=== PATIENT | male | born 1980 | race African-American/Black ===

== ENCOUNTER 2016-03-28 15:50 | Inpatient (IN) | payer MEDICAID, OTHER ==
[2016-03-28] MEDS ORDERED: NICOTINE 21MG/24HR PATCH TRANSDERM STA (17:21)
--- NOTE | 2016-03-28 17:43 | ED ---
Psych HPI - General Chief Complaint: Psychiatric Symptoms Stated Complaint: Mental Health Time Seen by Provider: 03/28/16 16:37 Source: patient, RN notes reviewed Mode of arrival: ambulatory Limitations: no limitations - History of Present Illness Initial Comments: 35-year-old male presents emergency Department chief complaint anxiety depression suicidal thoughts. Patient states he has not of time cell. Patient states 3 depressed because he lost his left lower leg. Patient states that he just sits at home and cannot work. Patient states he is on antidepressants with no help. - Related Data Home Medications Medication Instructions Recorded Confirmed Paliperidone IM [Invega Sustenna] 234 mg IM Q28D 01/23/16 03/28/16 Vortioxetine Hydrobromide 20 mg PO HS 01/23/16 03/28/16 [Trintellix] Gabapentin [Neurontin] 100 mg PO TID 03/28/16 03/28/16 Previous Rx's Medication Instructions Recorded Topiramate [Topamax] 50 mg PO BID #6 tab 03/20/15 HYDROcodone/APAP 7.5-325MG [[place] 1 tab PO Q6HR PRN #20 tab 02/11/16 7.5-325] ALPRAZolam [Xanax] 1 mg PO BID PRN #20 tab 02/12/16 Allergies Allergy/AdvReac Type Severity Reaction Status Date / Time No Known Allergies Allergy Verified 03/28/16 18:31 Review of Systems ROS Statement: Those systems with pertinent positive or pertinent negative responses have been documented in the HPI. ROS Other: All systems not noted in ROS Statement are negative. Past Medical History Past Medical History: No Reported History Additional Past Medical History / Comment(s): Pt recently admitted 01/25/16 with sepsis 2ndary to L foot cellulitis and elevated LFT. Other hx: past R elbow fracture. History of Any Multi-Drug Resistant Organisms: MRSA Date of last positivie culture/infection: 03/20/15 MDRO Source:: Left fourth finger Past Surgical History: Hernia Repair Additional Past Surgical History / Comment(s): Inguinal hernia repair as child ( does not recall laterallity). Past Anesthesia/Blood Transfusion Reactions: No Reported Reaction Past Psychological History: Anxiety, Bipolar, Depression Additional Psychological History / Comment(s): Pt states he lives alone. He does not drive. He uses the bus to get places. He states his psychiatric medications are working well. No thoughts or plans of suicide. He has had suicide attempt in past by OD. He sees a pychiatrist and councelor thru [facility]. Smoking Status: Current every day smoker Past Alcohol Use History: Occasional Additional Past Alcohol Use History / Comment(s): Pt states he has hx of alcohol abuse. He states he now drinks alcohol twice a month. He states he last drank about 2 weeks ago. Past Drug Use History: Marijuana Additional Drug Use History / Comment(s): Pt states he smokes marijuana occasionally. - Past Family History Father Family Medical History: Cancer Additional Family Medical History / Comment(s): Father of throat cancer at the age of 68yrs. He was a smoker. Mother Family Medical History: Cancer Additional Family Medical History / Comment(s): Mother had lung cancer. She of this at the age of 50yrs. She was a smoker. General Exam Limitations: no limitations General appearance: alert, in no apparent distress Eye exam: Present: normal appearance, PERRL, EOMI. Absent: scleral icterus, conjunctival injection, periorbital swelling ENT exam: Present: normal exam, mucous membranes moist Neck exam: Present: normal inspection, full ROM. Absent: tenderness, meningismus, lymphadenopathy Respiratory exam: Present: normal lung sounds bilaterally. Absent: respiratory distress, wheezes, rales, rhonchi, stridor Cardiovascular Exam: Present: regular rate, normal rhythm, normal heart sounds. Absent: systolic murmur, diastolic murmur, rubs, gallop, clicks GI/Abdominal exam: Present: soft, normal bowel sounds. Absent: distended, tenderness, guarding, rebound, rigid Extremities exam: Present: other (Left BKA) Psychiatric exam: Present: depressed Course Vital Signs 03/28/16 16:04 Temperature 97.8 F Pulse Rate 104 H Respiratory 20 Rate Blood Pressure 116/59 O2 Sat by Pulse 99 Oximetry Disposition Clinical Impression: Suicidal ideation, Depression Disposition: ADMITTED IP TO THIS HOSP Condition: Stable
[2016-03-28] MEDS ORDERED: LORazepam 1 MG TAB PO STA (18:49)
[2016-03-28] MEDS ORDERED: HYDROcodone/APAP 5-325MG 1 EACH TAB PO PRN (19:21)
[2016-03-28] MEDS ORDERED: MAG HYDROX/AL HYDROX/SIMETH 30 ML CUP PO PRN (19:23)
[2016-03-28] MEDS ORDERED: MAGNESIUM HYDROXIDE 2,400 MG/10 ML CUP PO PRN (19:23)
[2016-03-28] MEDS ORDERED: ACETAMINOPHEN TAB 325 MG TAB PO PRN (19:23)
[2016-03-28] MEDS ORDERED: ZIPRASIDONE 20 MG VIAL IM PRN (19:23)
[2016-03-28 21:14] VITALS: BMI 21.6
[2016-03-28] MEDS: TOPIRAMATE 25 MG TAB PO SCH (21:41)
[2016-03-28] MEDS: GABAPENTIN 100 MG CAP PO SCH (21:41)
[2016-03-28] MEDS: NON-FORMULARY DRUG (Vortioxetine Hydrobromide [Trintellix] 20 MG) PO SCH (22:49)
[2016-03-28] MEDS: LORazepam 1 MG TAB PO PRN (22:50)
[2016-03-29] MEDS: NICOTINE 21MG/24HR PATCH TRANSDERM SCH (08:36)
[2016-03-29] MEDS: TOPIRAMATE 25 MG TAB PO SCH ×2 (08:36→21:55)
[2016-03-29] MEDS: GABAPENTIN 100 MG CAP PO SCH (08:36)
[2016-03-29] MEDS: LORazepam 1 MG TAB PO PRN ×3 (08:37→23:39)
[2016-03-29 08:52] LABS: Basophils # (A) 0.1 k/uL (0-0.2); Basophils % (A) 1 %; CH 31.2; CHCM 32.4; Eosinophils # (A) 0.1 k/uL (0-0.7); Eosinophils % (A) 1 %; HCT 48.6 % (39.0-53.0); HDW 2.28; Luc % (Auto) 1; Lymphocytes # (A) 2.8 k/uL (1.0-4.8); Lymphocytes % (A) 20 %; MCH 30.5 pg (25.0-35.0); MCHC 31.6 g/dL (31.0-37.0); MCV 96.6 fL (80.0-100.0); Mean Platelet Volume 7.8; Monocytes # (A) 0.6 k/uL (0-1.0); Monocytes % (A) 5 %; Neutrophils # (A) 10.1 k/uL (1.3-7.7); Neutrophils % (A) 73 %; RBC 5.03 m/uL (4.30-5.90); RDW 12.8 % (11.5-15.5); WBC 13.9 k/uL (3.8-10.6); WBC (Perox) 13.89
[2016-03-29 08:54] LABS: HGB 15.4 gm/dL (13.0-17.5)
[2016-03-29] MEDS ORDERED: INFLUENZA VACCINE (3YR+) 60 MCG/0.5 ML SYRINGE IM ONE (09:00)
[2016-03-29 09:01] LABS: ALT 88 U/L (21-72); AST 54 U/L (17-59); Alkaline Phosphatase 74 U/L (38-126); Anion Gap 14 mmol/L; Blood Urea Nitrogen 11 mg/dL (9-20); Calcium 10.1 mg/dL (8.4-10.2); Carbon Dioxide 19 mmol/L (22-30); Chloride 110 mmol/L (98-107); Glucose 97 mg/dL (74-99); Non-African American GFR(MDRD) >60 (>60 ml/min/1.73 sqM); Potassium 4.1 mmol/L (3.5-5.1); Sodium 143 mmol/L (137-145); Total Bilirubin 0.7 mg/dL (0.2-1.3); Total Protein 7.5 g/dL (6.3-8.2)
--- NOTE | 2016-03-29 11:03 | P.CONS ---
History of Present Illness - Reason for Consult Consult date: 03/29/16 Medical management - History of Present Illness This is a 35-year-old. He [facility]. He has a past medical history significant for multiple admissions to [facility] in January 2016 for sepsis secondary to a left foot infection from stepping on a nail that developed into gangrene of the second, third and fourth toes status post [id number] amputation. The wound has healed nicely. He is to be fitted with a prosthetic device next week. He is currently ambulating with crutches. He also has a past medical history for anxiety, bipolar depression and tobacco use and dependence, daily marijuana use, alcohol abuse. Patient has history of heavy alcohol abuse during his teenage in 20 years and went to Center and he now drinks a couple times per month.. He states he has been depressed with suicidal thoughts that have been going on for a month and worse over the last couple of days. He has not acted on these thoughts. He has attempted suicide in the past. He does see a counselor and psychiatrist through [facility] and was recommended to come into [facility] emergency center for evaluation. WBC 13.9, TSH 1.170. Urine drug screen was positive for marijuana. He has been admitted to the mental health unit. He is complaining of pain and phantom pain to the left lower extremity. He is currently on gabapentin 100 mg 3 times daily and Se[place]ord 7.5 one every 6 hours as needed at home. Review of Systems All systems: negative Constitutional: Denies chills, Denies fever Eyes: denies blurred vision, denies pain Ears, nose, mouth and throat: Denies headache, Denies sore throat Cardiovascular: Denies chest pain, Denies shortness of breath Respiratory: Denies cough Gastrointestinal: Denies abdominal pain, Denies diarrhea, Denies nausea, Denies vomiting Musculoskeletal: Denies myalgias Integumentary: Denies pruritus, Denies rash Neurological: Denies numbness, Denies weakness Psychiatric: Reports anxiety, Reports depression, Reports hopelessness, Reports suicidal ideation Endocrine: Denies fatigue, Denies weight change Past Medical History Additional Past Medical History / Comment(s): Sepsis secondary to a left foot infection from stepping on a nail that developed into gangrene of the second, third and fourth toes status post [id number] amputation, R elbow fracture. History of Any Multi-Drug Resistant Organisms: MRSA Year Discovered:: 03/20/15 MDRO Source:: Left fourth finger Past Surgical History: Hernia Repair Additional Past Surgical History / Comment(s): Inguinal hernia repair as child ( does not recall laterallity). Amputation to below left knee on 02/08/2016 Past Anesthesia/Blood Transfusion Reactions: No Reported Reaction Past Psychological History: Anxiety, Bipolar, Depression Additional Psychological History / Comment(s): Pt states he lives alone. He does not drive. He uses the bus to get places. He has had suicide attempt in past by OD. He sees a pychiatrist and councelor thru [facility]. He is currently smoking 2 packs of cigarettes per day since he was 12 years of age. He uses marijuana on a daily basis. He does not have a medical marijuana card. He denies any street drug use. Smoking Status: Current every day smoker Past Alcohol Use History: Occasional Additional Past Alcohol Use History / Comment(s): Pt states he has hx of alcohol abuse during his teenage years and 20s. He states he now drinks alcohol twice a month. He states he last drank about 3-4 days ago. He has gone through [facility]. Past Drug Use History: Marijuana Additional Drug Use History / Comment(s): Pt states he smokes marijuana daily, - Past Family History Father Family Medical History: Cancer Additional Family Medical History / Comment(s): Father of throat cancer at the age of 68yrs. He was a smoker. Mother Family Medical History: Cancer Additional Family Medical History / Comment(s): Mother had lung cancer. She of this at the age of 50yrs. She was a smoker. Brother(s) Additional Family Medical History / Comment(s): He has one brother that is 40 years of age with no major medical problems. Sister(s) Additional Family Medical History / Comment(s): He has one sister that is 38 years of age and does not have any major medical problems. Patient has 2 sons that are currently living with their mother. Medications and Allergies Home Medications Medication Instructions Recorded Confirmed Type Paliperidone IM [Invega Sustenna] 234 mg IM Q28D 01/23/16 03/28/16 History Vortioxetine Hydrobromide 20 mg PO HS 01/23/16 03/28/16 History [Trintellix] Gabapentin [Neurontin] 100 mg PO TID 03/28/16 03/28/16 History Allergies Allergy/AdvReac Type Severity Reaction Status Date / Time No Known Allergies Allergy Verified 03/28/16 21:18 Physical Exam Vitals: Vital Signs Temp Pulse Resp BP Pulse Ox 03/29/16 06:49 98.0 F 89 16 141/84 03/28/16 22:50 78 18 121/83 03/28/16 21:50 97.9 F 03/28/16 21:05 74 16 129/86 98 Intake and Output 03/28/16 03/29/16 03/29/16 22:59 06:59 14:59 Other: Weight 67.302 kg 67.3 kg Patient Weight 03/30/16 06:59 Weight 67.3 kg Gen: This is a 35-year-old -[place]ine[place] male. He is walking with crutches and appears to be stable. He is cooperative and appears to be in no acute distress. HEENT: Head is atraumatic, normocephalic. Pupils equal, round. Sclerae is anicteric. NECK: Supple. No JVD. No lymphadenopathy. No thyromegaly. LUNGS: Clear to auscultation. No wheezes or rhonchi. No intercostal retractions. HEART: Regular rate and rhythm. No murmur. ABDOMEN: Soft. Bowel sounds are present. No masses. No tenderness. EXTREMITIES: No pedal edema. Left below the knee amputation noted. Wound is well-healed. No erythema. NEUROLOGICAL: Patient is awake, alert and oriented x3. Cranial nerves 2 through 12 are grossly intact. Results CBC & Chem 7: 03/29/16 08:12 03/29/16 08:12 Labs: Abnormal Lab Results - Last 24 Hours (Table) 03/29/16 03/29/16 Range/Units 08:12 08:12 WBC 13.9 H (3.8-10.6) k/uL Neutrophils # 10.1 H (1.3-7.7) k/uL Chloride 110 H (98-107) mmol/L Carbon Dioxide 19 L (22-30) mmol/L ALT 88 H (21-72) U/L Assessment and Plan Plan: 1. Depression recurrent with suicidal ideation in patient with history of bipolar and anxiety. Patient admitted to the mental health unit. Continue current plan of care. 2. Left below the knee amputation due to gangrenous changes to the left foot with complaints of phantom pain. Gabapentin will be increased to 300 mg 3 times daily. Patient is normally on [place]ord 7.5 one every 6 hours. Patient is currently on [place]ord 513 times daily as needed on the mental health unit. 3. Tobacco use and dependence. Continue nicotine patch. 4. Daily marijuana use. Continue as in #1. Impression and plan of care have been directed as dictated by the signing physician. Alexa Diaz nurse practitioner acting as scribe for signing physician. Time with Patient: Greater than 30
[2016-03-29] MEDS: FOLIC ACID 1 MG TAB PO SCH (12:11)
[2016-03-29] MEDS: MULTIVITAMINS, THERA 1 EACH TAB PO SCH (12:12)
[2016-03-29] MEDS: THIAMINE 100 MG TAB PO SCH (12:12)
--- NOTE | 2016-03-29 13:46 | P.HP ---
Psychiatric H&P - . History & Physical: Allergies Allergy/AdvReac Type Severity Reaction Status Date / Time No Known Allergies Allergy Verified 03/28/16 21:18 Vital Signs Temp 98.0 F 03/29/16 06:49 Pulse 89 03/29/16 06:49 Resp 16 03/29/16 06:49 BP 141/84 03/29/16 06:49 Pulse Ox 98 03/28/16 21:05 Intake & Output 03/28/16 03/29/16 03/29/16 18:59 06:59 18:59 Weight 67.302 kg 67.3 kg Laboratory Last Values WBC 13.9 k/uL (3.8-10.6) H 03/29/16 08:12 RBC 5.03 m/uL (4.30-5.90) 03/29/16 08:12 Hgb 15.4 gm/dL (13.0-17.5) D 03/29/16 08:12 Hct 48.6 % (39.0-53.0) 03/29/16 08:12 MCV 96.6 fL (80.0-100.0) 03/29/16 08:12 MCH 30.5 pg (25.0-35.0) 03/29/16 08:12 MCHC 31.6 g/dL (31.0-37.0) 03/29/16 08:12 RDW 12.8 % (11.5-15.5) 03/29/16 08:12 Plt Count 374 k/uL (150-450) 03/29/16 08:12 Neutrophils % 73 % 03/29/16 08:12 Lymphocytes % 20 % 03/29/16 08:12 Monocytes % 5 % 03/29/16 08:12 Eosinophils % 1 % 03/29/16 08:12 Basophils % 1 % 03/29/16 08:12 Neutrophils # 10.1 k/uL (1.3-7.7) H 03/29/16 08:12 Lymphocytes # 2.8 k/uL (1.0-4.8) 03/29/16 08:12 Monocytes # 0.6 k/uL (0-1.0) 03/29/16 08:12 Eosinophils # 0.1 k/uL (0-0.7) 03/29/16 08:12 Basophils # 0.1 k/uL (0-0.2) 03/29/16 08:12 Sodium 143 mmol/L (137-145) 03/29/16 08:12 Potassium 4.1 mmol/L (3.5-5.1) 03/29/16 08:12 Chloride 110 mmol/L (98-107) H 03/29/16 08:12 Carbon Dioxide 19 mmol/L (22-30) L 03/29/16 08:12 Anion Gap 14 mmol/L 03/29/16 08:12 BUN 11 mg/dL (9-20) 03/29/16 08:12 Creatinine 1.05 mg/dL (0.66-1.25) 03/29/16 08:12 Est GFR (MDRD) Af Amer >60 (>60 ml/min/1.73 sqM) 03/29/16 08:12 Est GFR (MDRD) Non-Af >60 (>60 ml/min/1.73 sqM) 03/29/16 08:12 Glucose 97 mg/dL (74-99) 03/29/16 08:12 Calcium 10.1 mg/dL (8.4-10.2) 03/29/16 08:12 Total Bilirubin 0.7 mg/dL (0.2-1.3) 03/29/16 08:12 AST 54 U/L (17-59) 03/29/16 08:12 ALT 88 U/L (21-72) H 03/29/16 08:12 Alkaline Phosphatase 74 U/L (38-126) 03/29/16 08:12 Total Protein 7.5 g/dL (6.3-8.2) 03/29/16 08:12 Albumin 4.6 g/dL (3.5-5.0) 03/29/16 08:12 TSH 1.170 mIU/L (0.465-4.680) 03/29/16 08:12 Urine Opiates Screen Not Detected (NotDetected) 03/28/16 18:13 Ur Oxycodone Screen Not Detected (NotDetected) 03/28/16 18:13 Urine Methadone Screen Not Detected (NotDetected) 03/28/16 18:13 Ur Propoxyphene Screen Not Detected (NotDetected) 03/28/16 18:13 Ur Barbiturates Screen Not Detected (NotDetected) 03/28/16 18:13 U Tricyclic Antidepress Not Detected (NotDetected) 03/28/16 18:13 Ur Phencyclidine Scrn Not Detected (NotDetected) 03/28/16 18:13 Ur Amphetamines Screen Not Detected (NotDetected) 03/28/16 18:13 U Methamphetamines Scrn Not Detected (NotDetected) 03/28/16 18:13 U Benzodiazepines Scrn Not Detected (NotDetected) 03/28/16 18:13 Urine Cocaine Screen Not Detected (NotDetected) 03/28/16 18:13 U Marijuana (THC) Screen Detected (NotDetected) H 03/28/16 18:13 03/29/16 13:33 IDENTIFYING DATA: This patient is a 35-year-old single -B[place] male who was admitted to the mental health unit through the emergency room with suicidal ideation. HPI: The patient reports that on he had to undergo an amputation involving his left lower extremity below the knee. He reports that he had a cellulitis that was being treated there was a subsequent complication of a thrombosis and a portion of his lower extremity was compromised. He has been trying to adjust to the physical limitations since the surgery and has found himself confined in his small apartment with no social interaction. He states he typically is someone who moves around all the time and gets things done and he feels helpless. He has been overwhelmed with these feelings and has been frequently crying. His mood is been depressed and he is thought of killing himself. He reports no access to guns. He had thoughts of hanging himself but decided not to act on that as he did not want his family to find him he presented to the emergency room for help. Obviously he is going through a grief reaction due to the loss of his foot. On a positive note he states he is being fitted for a prosthesis this coming Wednesday. He was told that within 2 weeks he should be able to utilize it with ambulation. Appetite is been stable sleep has been "broken". He finds himself feeling more anxious and restless. The patient's appears to have a bipolar diagnosis he is part of community mental health treatment. He is on Trintellix and invega sustenna. He feels both of these medications are effective. He states he is experiencing no auditory or visual hallucinations he is experiencing no specific delusions as we reviewed several types. He has had symptoms of psychosis in the past. He endorses episodes of hiren in the past where he would go almost a week without sleep have increased energy racing thoughts and impulsive behavior and feelings of irritability. He has suffered with episodes of depression in the past. PAST PSYCHIATRIC HISTORY: This would be the patient's seventh inpatient psychiatric admission, no history of suicide attempts, he is on Trintellix 20 mg daily, Invega Sustenna 234 mg monthly this is due again on April 13. He has previously been on Seroquel, Vistaril, Zyprexa, Remeron, Saphris, Cymbalta. He works with a therapist that he sees every 2 weeks and he sees his psychiatrist every 1-2 months. PMH: Recent amputation involving left lower extremity below the knee, history of cephalgia, phantom pain ALLERGIES: NO KNOWN DRUG ALLERGIES MEDICATIONS: [place] Neurontin Topamax CHEMICAL DEPENDENCY HISTORY: He reports using alcohol 1 beer every other week, he reports using marijuana daily, he reports no use of any other substances. He has been in residential treatment for use of alcohol and opiates in 2013. FAMILY PSYCHIATRIC HISTORY: None reported no suicides in the family FAMILY CHEMICAL DEPENDENCY HISTORY: His father and brother are known to be alcohol dependent SOCIAL HISTORY: The patient is 35 years old she single he's never been . He lives alone in his own apartment. He has 2 sons ages 6 and 10 and he is able to see them frequently. He reports having a decent relationship with their mother area he has 1 brother and 1 sister. The patient is not employed he has no income. He is applying for disability. He has an eighth grade education and later earned his GED. No history of service. He was born and raised in the [place] area raised by both parents. He reports no history of any abuse. Legally he has been arrested for possession of marijuana and carrying a concealed weapon. His longest [facility] years ago. MENTAL STATUS EXAM: The patient is a -[place] male appearing his stated age, he is mobile with a wheelchair this morning, he is dressed in his own clothing. Hygiene grooming adequate. He reports his mood is been depressed he' s had hopeless thoughts with recent suicidal ideation. He is endorsing no homicidal ideation. He endorses no auditory or visual hallucinations he is endorsing no specific delusions. He does not currently present hypomanic or manic. He demonstrates no tangential thinking loose associations or flight of ideas. He demonstrates no verbal or physical aggressiveness. Speech is fluent spontaneous nonpressured. Eye contact is appropriate. He is able to demonstrate a limited range of affect. Cognitively he is alert and oriented to person place and date he is able to register 3 words and spontaneously recall them after delay of approximately 3 minutes. He is able to name 5 major cities [facility] he provides abstract answers with similarity questions. He was able to name 3 objects. STRENGTHS/WEAKNESSES: Strengths: Housing, willingness to present for treatment, outpatient mental health involvement weaknesses: Recent grief reaction related to amputation, feeling isolated with limited support INTELLECTUAL FUNCTIONING: Below average to average IMPRESSIONS: [] 1. Bipolar 1 disorder most recent depressed, cannabis use disorder, history of opiate use disorder, history of alcohol use disorder 2. Amputation involving left lower extremity, chronic pain 3. Psychosocial dysfunction due to psychiatric symptoms mainly focusing on grief reaction PLAN: The patient has been admitted to the mental health unit he is here voluntarily. We reviewed his presenting symptoms and medication options. He will be continued on the Invega Sustenna 234 mg monthly, Trintellix 20 mg daily , Topamax 50 mg twice daily, his Neurontin has been increased to 300 mg 3 times a day. He has arty been seen for a routine medical consultation. Social work will meet with the patient to complete a psychosocial assessment and begin discharge planning. We will involve family as he will allow in treatment and discharge planning. We will monitor him for safety and he is encouraged to participate in the milieu. Lab values reviewed vital signs reviewed. We will explore potential mobile crisis unit involvement upon discharge to increase his socialization.
[2016-03-29] MEDS: HYDROcodone/APAP 7.5-325MG 1 EACH TAB PO PRN (16:03)
[2016-03-29] MEDS: GABAPENTIN 300 MG CAP PO SCH ×2 (16:03→21:56)
[2016-03-29] MEDS: NON-FORMULARY DRUG (Vortioxetine Hydrobromide [Trintellix] 20 MG) PO SCH (21:56)
[2016-03-30] MEDS: HYDROcodone/APAP 7.5-325MG 1 EACH TAB PO PRN ×2 (07:49→15:01)
[2016-03-30] MEDS: NICOTINE 21MG/24HR PATCH TRANSDERM SCH (09:14)
[2016-03-30] MEDS: TOPIRAMATE 25 MG TAB PO SCH ×2 (09:15→20:55)
[2016-03-30] MEDS: GABAPENTIN 300 MG CAP PO SCH ×3 (09:16→20:55)
--- NOTE | 2016-03-30 09:52 | P.PN ---
Progress Note - Text Interval history: The patient is found in the hallway he follows me to an interview room. We reviewed presenting symptoms. He states he is doing better today. He has had several phone conversations with friends and family. He has had a repeat conversation with his ex-. The other day he felt she was mad at him for coming to the mental health unit and she considered this a sign of weakness. He reports that they're conversation last evening was more uplifting and she was more positive. We discussed activities he could participate in over the next 2 weeks to remain productive while waiting for his prosthesis. We discussed increased outpatient community mental health involvement. He reports some difficulty sleeping last night and asks that we prescribe the medication. He did attend groups and he plans to attend today. Mental status exam: The patient is an -[place] male appearing his stated age he is mobile with a wheelchair. He is dressed in his own clothing. He reports his mood is better his affect is congruent. He readily engages in conversation. There is no evidence of psychosis he reports no symptoms of psychosis. He is endorsing no racing thoughts and there is no evidence of hypomania or hiren. There is no verbal or physical aggressiveness. Overall his outlook seems a little more positive compared to yesterday. He remains oriented to person place and date. Plan: The patient will continue on his current psychotropic medications we will initiate trazodone 50 mg at bedtime. Social work will be asked to arrange a support meeting. We will meet with the [facility] liaison to see if other outpatient services are available to him over the next 2 weeks prior to him getting his prosthesis. It seems that he is experiencing a significant grief reaction because of his amputation in the context of a having a bipolar disorder with known history of psychosis. He is encouraged to continue participating in the milieu we will monitor him for safety. Vital signs reviewed. If sufficient supports in the outpatient setting are appreciated and available to him we will consider discharging him in the next 1-2 days.
[2016-03-30] MEDS: LORazepam 1 MG TAB PO PRN ×2 (10:32→20:56)
[2016-03-30] MEDS: FOLIC ACID 1 MG TAB PO SCH (12:35)
[2016-03-30] MEDS: THIAMINE 100 MG TAB PO SCH (12:35)
[2016-03-30] MEDS: MULTIVITAMINS, THERA 1 EACH TAB PO SCH (12:35)
[2016-03-30] MEDS: NON-FORMULARY DRUG (Vortioxetine Hydrobromide [Trintellix] 20 MG) PO SCH (20:55)
[2016-03-30] MEDS ORDERED: traZODone HCL 50 MG TAB PO SCH (21:00)
[2016-03-31 06:34] VITALS: BP 127/82; PULSE 78; RESP 18; TEMP 98
[2016-03-31] MEDS: HYDROcodone/APAP 7.5-325MG 1 EACH TAB PO PRN (06:54)
[2016-03-31] MEDS: GABAPENTIN 300 MG CAP PO SCH (10:02)
[2016-03-31] MEDS: TOPIRAMATE 25 MG TAB PO SCH (10:02)
[2016-03-31] MEDS: NICOTINE 21MG/24HR PATCH TRANSDERM SCH (10:02)
== END 2016-03-31 09:47 | disposition home or self-care (01) | DRG 885 ==
LOC: EC 15:50 → 3MHU 19:08
PROVIDERS: ADMIT Psychiatry & Neurology Psychiatry; ATTEND Psychiatry & Neurology Psychiatry
DX: F31.9 Bipolar disorder, unspecified (principal); G54.6 Phantom limb syndrome with pain; R45.851 Suicidal ideations; F41.8 Other specified anxiety disorders; F12.90 Cannabis use, unspecified, uncomplicated; F43.20 Adjustment disorder, unspecified; G89.29 Other chronic pain; Z89.519 Acquired absence of unspecified leg below knee; F17.210 Nicotine dependence, cigarettes, uncomplicated; Z79.899 Other long term (current) drug therapy
CPT/HCPCS: 80053; 80306; 82075; 84443; 85025; 90686; 99285

== ENCOUNTER 2016-07-30 16:54 | Emergency (ER) | payer OTHER ==
[2016-07-30 17:29] LABS: Basophils # (A) 0.1 k/uL (0-0.2); Basophils % (A) 1 %; CHCM 33.2; Eosinophils % (A) 0 %; HCT 43.7 % (39.0-53.0); HDW 2.11; HGB 14.3 gm/dL (13.0-17.5); Luc # (Auto) 0.13; Luc % (Auto) 1; Lymphocytes # (A) 3.7 k/uL (1.0-4.8); Lymphocytes % (A) 34 %; MCH 31.7 pg (25.0-35.0); MCHC 32.8 g/dL (31.0-37.0); MCV 96.8 fL (80.0-100.0); Mean Platelet Volume 7.4; Monocytes # (A) 0.3 k/uL (0-1.0); Monocytes % (A) 3 %; Neutrophils # (A) 6.6 k/uL (1.3-7.7); Neutrophils % (A) 61 %; RBC 4.52 m/uL (4.30-5.90); RDW 14.2 % (11.5-15.5); WBC 10.9 k/uL (3.8-10.6); WBC (Perox) 10.74
--- NOTE | 2016-07-30 17:31 | ED ---
Psych HPI - General Source: patient, EMS, RN notes reviewed Mode of arrival: EMS - History of Present Illness MD Complaint: suicidal ideation <Dutch Garcia - Last Filed: 07/30/16 19:15> <Ramses Hummel - Last Filed: 07/30/16 19:47> - General Chief Complaint: Psychiatric Symptoms Stated Complaint: Overdose Time Seen by Provider: 07/30/16 16:54 - History of Present Illness Initial Comments: This is a 35-year-old male was brought in by EMS for evaluation for ingestion of multiple medications which included Xanax methadone and Suboxone. Patient currently is chronic pain from a leg amputation.'s is on the left. He did tell staff including myself anyone or himself and kill himself. He did deny this to police apparently. (Dutch Garcia) - Related Data Home Medications Medication Instructions Recorded Confirmed Paliperidone IM [Invega Sustenna] 234 mg IM Q28D 01/23/16 07/30/16 Vortioxetine Hydrobromide 20 mg PO HS 01/23/16 07/30/16 [Trintellix] Cholecalciferol [Vitamin D3] 1,000 unit PO DAILY 07/30/16 07/30/16 Gabapentin [Neurontin] 100 mg PO TID 07/30/16 07/30/16 Melatonin 5 mg PO HS 07/30/16 07/30/16 Previous Rx's Medication Instructions Recorded Topiramate [Topamax] 50 mg PO BID #6 tab 03/20/15 Allergies Allergy/AdvReac Type Severity Reaction Status Date / Time No Known Allergies Allergy Verified 03/28/16 21:18 Review of Systems ROS Other: All systems not noted in ROS Statement are negative. <Dutch Garcia - Last Filed: 07/30/16 19:15> ROS Other: All systems not noted in ROS Statement are negative. <Ramses Hummel - Last Filed: 07/30/16 19:47> ROS Statement: Those systems with pertinent positive or pertinent negative responses have been documented in the HPI. Past Medical History Past Medical History: Deep Vein Thrombosis (DVT) Additional Past Medical History / Comment(s): Sepsis secondary to a left foot infection from stepping on a nail that developed into gangrene of the second, third and fourth toes status post [id number] amputation, R elbow fracture. History of Any Multi-Drug Resistant Organisms: MRSA Date of last positivie culture/infection: 03/20/15 MDRO Source:: Left fourth finger Past Surgical History: Hernia Repair Additional Past Surgical History / Comment(s): Inguinal hernia repair as child ( does not recall laterallity). 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 He was a smoker. Mother Family Medical History: Cancer Additional Family Medical History / Comment(s): Mother had lung cancer. She of this at the age of 50yrs. She was a smoker. Brother(s) Additional Family Medical History / Comment(s): He has one brother that is 40 years of age with no major medical problems. Sister(s) Additional Family Medical History / Comment(s): He has one sister that is 38 years of age and does not have any major medical problems. Patient has 2 sons that are currently living with their mother. <Dutch Garcia - Last Filed: 07/30/16 19:15> General Exam Limitations: no limitations General appearance: alert, anxious Head exam: Present: atraumatic, normocephalic, normal inspection Eye exam: Present: normal appearance, PERRL, EOMI. Absent: scleral icterus, conjunctival injection, periorbital swelling ENT exam: Present: normal exam, mucous membranes moist Neck exam: Present: normal inspection. Absent: tenderness, meningismus, lymphadenopathy Respiratory exam: Present: normal lung sounds bilaterally. Absent: respiratory distress, wheezes, rales, rhonchi, stridor Cardiovascular Exam: Present: regular rate, normal rhythm, normal heart sounds. Absent: systolic murmur, diastolic murmur, rubs, gallop, clicks GI/Abdominal exam: Present: soft, normal bowel sounds. Absent: distended, tenderness, guarding, rebound, rigid Extremities exam: Present: full ROM, normal capillary refill, other (Patient does have a prosthetic leg on the left). Absent: tenderness, pedal edema, joint swelling, calf tenderness Back exam: Present: normal inspection Neurological exam: Present: alert, oriented X3, CN II-XII intact Psychiatric exam: Present: depressed, manic, suicidal ideation Skin exam: Present: warm, dry, intact, normal color. Absent: rash <Dutch Garcia - Last Filed: 07/30/16 19:15> <Ramses Hummel - Last Filed: 07/30/16 19:47> - General Exam Comments Initial Comments: This a well little pulmonary awake alert oriented times female (Dutch Garcia) Course <Dutch Garcia - Last Filed: 07/30/16 19:15> <Ramses Hummel - Last Filed: 07/30/16 19:47> Vital Signs 07/30/16 07/30/16 07/30/16 17:00 17:47 18:05 Temperature 100.6 F H 98.8 F 98.0 F Pulse Rate 96 91 79 Respiratory 26 H 16 16 Rate Blood Pressure 115/72 117/65 135/97 O2 Sat by Pulse 97 98 97 Oximetry - Reevaluation(s) Reevaluation #1: 07/30/16 19:15 The patient care is endorsed to Dr. Hummel who will make the final disposition. ( Dutch Garcia) Medical Decision Making - Lab Data Result diagrams: 07/30/16 17:00 07/30/16 17:00 - EKG Data -: EKG Interpreted by Me EKG shows normal: sinus rhythm (Sinus rhythm a rate of 92 NH interval 136 QRS duration 84 QT/QTC of 348/4:[address]-t wave changes.) <Dutch Garcia - Last Filed: 07/30/16 19:15> - Lab Data Result diagrams: 07/30/16 17:00 07/30/16 17:00 <Ramses Hummel - Last Filed: 07/30/16 19:47> - Medical Decision Making Pt signed out to me by Dr. Garcia. Pt evaluated by EPS who stated that patient will be discharged and follow up in the morning. (Ramses Hummel) - Lab Data Lab Results 07/30/16 07/30/16 Range/Units 17:00 17:00 WBC 10.9 H (3.8-10.6) k/uL RBC 4.52 (4.30-5.90) m/uL Hgb 14.3 (13.0-17.5) gm/dL Hct 43.7 (39.0-53.0) % MCV 96.8 (80.0-100.0) fL MCH 31.7 (25.0-35.0) pg MCHC 32.8 (31.0-37.0) g/dL RDW 14.2 (11.5-15.5) % Plt Count 294 (150-450) k/uL Neutrophils % 61 % Lymphocytes % 34 % Monocytes % 3 % Eosinophils % 0 % Basophils % 1 % Neutrophils # 6.6 (1.3-7.7) k/uL Lymphocytes # 3.7 (1.0-4.8) k/uL Monocytes # 0.3 (0-1.0) k/uL Eosinophils # 0.0 (0-0.7) k/uL Basophils # 0.1 (0-0.2) k/uL Sodium 140 (137-145) mmol/L Potassium 4.2 (3.5-5.1) mmol/L Chloride 111 H (98-107) mmol/L Carbon Dioxide 19 L (22-30) mmol/L Anion Gap 10 mmol/L BUN 8 L (9-20) mg/dL Creatinine 1.10 (0.66-1.25) mg/dL Est GFR (MDRD) Af Amer >60 (>60 ml/min/1.73 sqM) Est GFR (MDRD) Non-Af >60 (>60 ml/min/1.73 sqM) Glucose 85 (74-99) mg/dL Calcium 9.4 (8.4-10.2) mg/dL Total Bilirubin 0.6 (0.2-1.3) mg/dL AST 34 (17-59) U/L ALT 46 (21-72) U/L Alkaline Phosphatase 61 (38-126) U/L Total Protein 6.3 (6.3-8.2) g/dL Albumin 4.1 (3.5-5.0) g/dL Salicylates <1.0 mg/dL Acetaminophen <10.0 ug/mL Serum Alcohol 40 mg/dL Disposition <Dutch Garcia - Last Filed: 07/30/16 19:15> <Ramses Hummel - Last Filed: 07/30/16 19:47> Clinical Impression: Depression Disposition: HOME SELF-CARE Condition: Stable Instructions: Depression (ED) Referrals: None,Stated [Primary Care Provider] - 1-2 days
[2016-07-30 17:41] LABS: ALT 46 U/L (21-72); AST 34 U/L (17-59); Acetaminophen <10.0 ug/mL; Alcohol 40 mg/dL; Alkaline Phosphatase 61 U/L (38-126); Anion Gap 10 mmol/L; Blood Urea Nitrogen 8 mg/dL (9-20); Calcium 9.4 mg/dL (8.4-10.2); Carbon Dioxide 19 mmol/L (22-30); Chloride 111 mmol/L (98-107); Glucose 85 mg/dL (74-99); Non-African American GFR(MDRD) >60 (>60 ml/min/1.73 sqM); Potassium 4.2 mmol/L (3.5-5.1); Salicylate <1.0 mg/dL; Sodium 140 mmol/L (137-145); Total Bilirubin 0.6 mg/dL (0.2-1.3); Total Protein 6.3 g/dL (6.3-8.2)
[2016-07-30 17:49] VITALS: RESP 16
[2016-07-30 18:23] VITALS: TEMP 98
[2016-07-30 19:50] VITALS: BP 104/60; PULSE 80
== END 2016-07-30 20:09 | disposition home or self-care (01) ==
LOC: EC 16:54
DX: F32.9 Major depressive disorder, single episode, unspecified (principal); F41.9 Anxiety disorder, unspecified; F17.200 Nicotine dependence, unspecified, uncomplicated; Z86.718 Personal history of other venous thrombosis and embolism; Z79.899 Other long term (current) drug therapy
CPT/HCPCS: 36415; 80053; 80320; 82075; 83520; 85025; 93005; 99285

== ENCOUNTER 2016-07-31 10:12 | Emergency (ER) | payer OTHER ==
--- NOTE | 2016-07-31 10:58 | XR ---
EXAMINATION TYPE: XR knee complete LT DATE OF EXAM: 07/31/2016 COMPARISON: NONE HISTORY: Pain TECHNIQUE: 3 views are submitted. FINDINGS: Mild joint space narrowing. Evidence of previous amputation. Severe diffuse osteopenia. No destructiv e changes. No acute fracture. IMPRESSION: 1. Postsurgical change and severe diffuse osteopenia
--- NOTE | 2016-07-31 11:10 | ED ---
General Adult HPI - General Chief complaint: Extremity Injury, Lower Stated complaint: fall Time Seen by Provider: 07/31/16 10:33 Source: patient, RN notes reviewed Mode of arrival: wheelchair - History of Present Illness Initial comments: Patient 35-year-old male who is BKA on the left presenting today with a chief complaint of 2 falls that occurred when he was not wearing the prosthetic in the middle of night. Patient does admit that he landed on this area. He doesn' t chronic pain. He states pain is increased. States he does not have any pain medication and is scheduled see a specialist not until the end of the month. Patient denies any other complaints or symptoms. Patient denies any recent fever , chills, shortness of breath, chest pain, back pain, abdominal pain, nausea or vomiting, dysuria or hematuria, constipation or diarrhea, headaches or visual changes, or any other complaints. - Related Data Home Medications Medication Instructions Recorded Confirmed Paliperidone IM [Invega Sustenna] 234 mg IM Q28D 01/23/16 07/31/16 Vortioxetine Hydrobromide 20 mg PO HS 01/23/16 07/31/16 [Trintellix] Cholecalciferol [Vitamin D3] 1,000 unit PO DAILY 07/30/16 07/31/16 Gabapentin [Neurontin] 100 mg PO TID 07/30/16 07/31/16 Melatonin 5 mg PO HS 07/30/16 07/31/16 Previous Rx's Medication Instructions Recorded Topiramate [Topamax] 50 mg PO BID #6 tab 03/20/15 Allergies Allergy/AdvReac Type Severity Reaction Status Date / Time No Known Allergies Allergy Verified 07/31/16 10:24 Review of Systems ROS Statement: Those systems with pertinent positive or pertinent negative responses have been documented in the HPI. ROS Other: All systems not noted in ROS Statement are negative. Past Medical History Past Medical History: Deep Vein Thrombosis (DVT) Additional Past Medical History / Comment(s): Sepsis secondary to a left foot infection from stepping on a nail that developed into gangrene of the second, third and fourth toes status post [id number] amputation, R elbow fracture. History of Any Multi-Drug Resistant Organisms: MRSA Date of last positivie culture/infection: 03/20/15 MDRO Source:: Left fourth finger Past Surgical History: Hernia Repair Additional Past Surgical History / Comment(s): Inguinal hernia repair as child ( does not recall laterallity). 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 He was a smoker. Mother Family Medical History: Cancer Additional Family Medical History / Comment(s): Mother had lung cancer. She of this at the age of 50yrs. She was a smoker. Brother(s) Additional Family Medical History / Comment(s): He has one brother that is 40 years of age with no major medical problems. Sister(s) Additional Family Medical History / Comment(s): He has one sister that is 38 years of age and does not have any major medical problems. Patient has 2 sons that are currently living with their mother. Course Vital Signs 07/31/16 10:21 Temperature 96.7 F L Pulse Rate 98 Respiratory 18 Rate Blood Pressure 128/77 O2 Sat by Pulse 98 Oximetry Medical Decision Making - Medical Decision Making Patient's previous records reviewed does show that he was here in the emergency room yesterday for overdose on Xanax and Suboxone. Patient requesting pain medicine here and advised that he needs to follow-up with family doctor or pain specialist for any narcotic medications. Advised in the strongest and that we can prescribe him would be ibuprofen and he states he has this at home. Disposition Clinical Impression: Chronic pain Disposition: HOME SELF-CARE Condition: Good Instructions: Chronic Pain (ED) Additional Instructions: Please follow-up family doctor pain specialist for pain medicines as discussed. Please continue Tylenol/ibuprofen as needed. Please return to emergency room for any other concerns. Referrals: Cherry Payne MD [Primary Care Provider] - 1-2 days Time of Disposition: 11:09
[2016-07-31 11:15] VITALS: BP 130/83; PULSE 104; RESP 16; TEMP 97.8
== END 2016-07-31 11:14 | disposition home or self-care (01) ==
LOC: EC 10:12
DX: G89.29 Other chronic pain (principal); M79.605 Pain in left leg; F31.9 Bipolar disorder, unspecified; F41.9 Anxiety disorder, unspecified; F17.200 Nicotine dependence, unspecified, uncomplicated; Z79.899 Other long term (current) drug therapy; Z89.9 Acquired absence of limb, unspecified; W19.XXXA Unspecified fall, initial encounter
CPT/HCPCS: 99283

== ENCOUNTER 2017-12-16 16:28 | Inpatient (IN) | payer MEDICAID, OTHER ==
--- NOTE | 2017-12-16 17:21 | ED ---
General Adult HPI - General Chief complaint: Psychiatric Symptoms Stated complaint: suicidal Time Seen by Provider: 12/16/17 17:04 Source: patient, RN notes reviewed, old records reviewed Mode of arrival: ambulatory Limitations: no limitations - History of Present Illness Initial comments: 37 -year-old male presents for evaluation of depression and suicidal ideation. Patient states he plans to hang himself, cut himself, or overdose. He has been off his medications for some time. He also admits to use of cocaine and marijuana. He has been admitted with psychiatric evaluation and treatment in the past. Patient denies any suicide attempt or self-harm. No physical complaints. - Related Data Home Medications Medication Instructions Recorded Confirmed Paliperidone IM [Invega Sustenna] 234 mg IM Q28D 03/18/17 12/16/17 Vortioxetine Hydrobromide 20 mg PO HS 03/18/17 12/16/17 [Trintellix] Ergocalciferol [Vitamin D2] 50,000 unit PO Q7D 12/16/17 12/16/17 Fenofibrate [Lofibra] 54 mg PO DAILY 12/16/17 12/16/17 Gabapentin [Neurontin] 100 mg PO TID 12/16/17 12/16/17 HYDROcodone/APAP 5-325MG [[place] 1 tab PO BID 12/16/17 12/16/17 5-325] Previous Rx's Medication Instructions Recorded Topiramate [Topamax] 50 mg PO BID #28 tab 11/25/16 Allergies Allergy/AdvReac Type Severity Reaction Status Date / Time No Known Allergies Allergy Verified 12/16/17 17:35 Review of Systems ROS Statement: Those systems with pertinent positive or pertinent negative responses have been documented in the HPI. ROS Other: All systems not noted in ROS Statement are negative. Past Medical History Past Medical History: Deep Vein Thrombosis (DVT) Additional Past Medical History / Comment(s): Sepsis secondary to a left foot infection from stepping on a nail that developed into gangrene of the second, third and fourth toes status post [id number] amputation, R elbow fracture. History of Any Multi-Drug Resistant Organisms: MRSA Date of last positivie culture/infection: 03/20/15 MDRO Source:: Left fourth finger Past Surgical History: Hernia Repair Additional Past Surgical History / Comment(s): Inguinal hernia repair as child ( does not recall laterallity). 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 He was a smoker. Mother Family Medical History: Cancer Additional Family Medical History / Comment(s): Mother had lung cancer. She of this at the age of 50yrs. She was a smoker. Brother(s) Additional Family Medical History / Comment(s): He has one brother that is 40 years of age with no major medical problems. Sister(s) Additional Family Medical History / Comment(s): He has one sister that is 39 years of age and does not have any major medical problems. Patient has 2 sons that are currently living with their mother. General Exam Limitations: no limitations General appearance: alert, in no apparent distress Head exam: Present: atraumatic, normocephalic Eye exam: Present: normal appearance, PERRL Neck exam: Present: normal inspection Respiratory exam: Present: normal lung sounds bilaterally. Absent: respiratory distress, wheezes Cardiovascular Exam: Present: regular rate, normal rhythm GI/Abdominal exam: Present: soft. Absent: distended, tenderness, guarding Extremities exam: Present: other (Left BKA). Absent: pedal edema Neurological exam: Present: alert, oriented X3 Psychiatric exam: Present: depressed, suicidal ideation Skin exam: Present: warm, dry, intact. Absent: cyanosis, diaphoretic Course Vital Signs 12/16/17 16:34 Temperature 98.3 F Pulse Rate 72 Respiratory 18 Rate Blood Pressure 132/91 O2 Sat by Pulse 98 Oximetry Medical Decision Making - Medical Decision Making Patient evaluated by EPS, will be admitted for further psychiatric treatment and evaluation. - Lab Data Lab Results 12/16/17 Range/Units 17:15 Urine Color Yellow Urine Appearance Clear (Clear) Urine pH 5.5 (5.0-8.0) Ur Specific [place] 1.019 (1.001-1.035) Urine Protein Negative (Negative) Urine Glucose (UA) Negative (Negative) Urine Ketones Negative (Negative) Urine Blood Moderate H (Negative) Urine Nitrite Negative (Negative) Urine Bilirubin Negative (Negative) Urine Urobilinogen 2.0 (<2.0) mg/dL Ur Leukocyte Esterase Negative (Negative) Urine RBC 2 (0-5) /hpf Urine WBC 1 (0-5) /hpf Uric Acid Crystals Rare H (None) /hpf Urine Mucus Rare H (None) /hpf Disposition Clinical Impression: Suicidal ideation, Depression Disposition: ADMITTED IP TO THIS HOSP Condition: Stable Is patient prescribed a controlled substance at d/c from ED?: No Referrals: [facility] [Primary Care Provider] - 1-2 days Decision to Admit Reason: Admit from EC Decision Date: 12/16/17 Decision Time: 17:52
[2017-12-16] MEDS ORDERED: NICOTINE 21MG/24HR PATCH TRANSDERM STA (17:40)
[2017-12-16 17:50] LABS: Appearance,Urine Clear (Clear); Bilirubin,Urine Negative (Negative); Blood,Urine Moderate (Negative); Color,Urine Yellow; Glucose,Urine (UA) Negative (Negative); Ketones,Urine Negative (Negative); Leukocyte Esterase,Urine Negative (Negative); Mucus,Urine Rare /hpf; Nitrite,Urine Negative (Negative); PH, Urine 5.5 (5.0-8.0); Protein,Urine Negative (Negative); RBC,Urine 2 /hpf (0-5); Specific Gravity,Urine 1.019 (1.001-1.035); Uric Acid Crystals,Urine Rare /hpf; WBC,Urine 1 /hpf (0-5)
[2017-12-16 17:56] LABS: Amphetamine Screen,Urine Not Detected (NotDetected); Barbiturate Screen,Urine Not Detected (NotDetected); Benzodiazepines Screen,Urine Not Detected (NotDetected); Cocaine Screen,Urine Detected (NotDetected); Methadone Screen, Urine Not Detected (NotDetected); Opiate Screen,Urine Not Detected (NotDetected); Oxycodone Screen, Urine Not Detected (NotDetected); Phencyclidine Screen,Urine Not Detected (NotDetected); Tricyclic Antidepressant,Urine Not Detected (NotDetected); Urn Cannabinoid Scrn Detected (NotDetected)
[2017-12-16] MEDS ORDERED: MAG HYDROX/AL HYDROX/SIMETH 30 ML CUP PO PRN (19:06)
[2017-12-16] MEDS ORDERED: MAGNESIUM HYDROXIDE 2,400 MG/10 ML CUP PO PRN (19:06)
[2017-12-16] MEDS ORDERED: ZIPRASIDONE 20 MG VIAL IM PRN (19:06)
[2017-12-17] MEDS: NICOTINE 21MG/24HR PATCH TRANSDERM SCH (07:33)
[2017-12-17 08:48] LABS: Basophils # (A) 0.1 k/uL (0-0.2); Basophils % (A) 1 %; Eosinophils # (A) 0.2 k/uL (0-0.7); Eosinophils % (A) 1 %; HCT 49.9 % (39.0-53.0); HGB 15.6 gm/dL (13.0-17.5); Lymphocytes % (A) 21 %; MCH 30.7 pg (25.0-35.0); MCHC 31.2 g/dL (31.0-37.0); MCV 98.1 fL (80.0-100.0); Mean Platelet Volume 6.8; Monocytes # (A) 0.7 k/uL (0-1.0); Monocytes % (A) 5 %; Neutrophils # (A) 10.1 k/uL (1.3-7.7); Neutrophils % (A) 71 %; Platelet Count 417 k/uL (150-450); RBC 5.09 m/uL (4.30-5.90); RDW 12.8 % (11.5-15.5); WBC 14.2 k/uL (3.8-10.6)
[2017-12-17 09:02] LABS: ALT 25 U/L (21-72); AST 30 U/L (17-59); Albumin 4.1 g/dL (3.5-5.0); Alkaline Phosphatase 65 U/L (38-126); Anion Gap 6 mmol/L; Bilirubin, Delta 0.3 mg/dL (0.0-0.2); Bilirubin,Unconjugated 0.5 mg/dL (0.0-1.1); Blood Urea Nitrogen 14 mg/dL (9-20); Calcium 9.9 mg/dL (8.4-10.2); Carbon Dioxide 27 mmol/L (22-30); Chloride 106 mmol/L (98-107); Cholesterol 135 mg/dL (<200); Glucose 108 mg/dL (74-99); HDL Cholesterol 51 mg/dL (40-60); LDL Cholesterol,Calculated 66 mg/dL (0-99); Potassium 4.4 mmol/L (3.5-5.1); Sodium 139 mmol/L (137-145); Total Bilirubin 0.8 mg/dL (0.2-1.3); Total Protein 6.7 g/dL (6.3-8.2); Triglycerides 91 mg/dL (<150)
--- NOTE | 2017-12-17 09:50 | P.HP ---
Psychiatric H&P - . History & Physical: Allergies Allergy/AdvReac Type Severity Reaction Status Date / Time No Known Allergies Allergy Verified 12/16/17 17:35 Vital Signs Temp 98.3 F 12/17/17 06:15 Pulse 84 12/17/17 06:15 Resp 18 12/17/17 06:15 BP 139/74 12/17/17 06:15 Pulse Ox 97 12/16/17 18:43 Intake & Output 12/16/17 12/17/17 12/17/17 18:59 06:59 18:59 Weight 66 kg Laboratory Last Values WBC 14.2 k/uL (3.8-10.6) H 12/17/17 08:14 RBC 5.09 m/uL (4.30-5.90) 12/17/17 08:14 Hgb 15.6 gm/dL (13.0-17.5) 12/17/17 08:14 Hct 49.9 % (39.0-53.0) 12/17/17 08:14 MCV 98.1 fL (80.0-100.0) 12/17/17 08:14 MCH 30.7 pg (25.0-35.0) 12/17/17 08:14 MCHC 31.2 g/dL (31.0-37.0) 12/17/17 08:14 RDW 12.8 % (11.5-15.5) 12/17/17 08:14 Plt Count 417 k/uL (150-450) 12/17/17 08:14 Neutrophils % 71 % 12/17/17 08:14 Lymphocytes % 21 % 12/17/17 08:14 Monocytes % 5 % 12/17/17 08:14 Eosinophils % 1 % 12/17/17 08:14 Basophils % 1 % 12/17/17 08:14 Neutrophils # 10.1 k/uL (1.3-7.7) H 12/17/17 08:14 Lymphocytes # 3.0 k/uL (1.0-4.8) 12/17/17 08:14 Monocytes # 0.7 k/uL (0-1.0) 12/17/17 08:14 Eosinophils # 0.2 k/uL (0-0.7) 12/17/17 08:14 Basophils # 0.1 k/uL (0-0.2) 12/17/17 08:14 Sodium 139 mmol/L (137-145) 12/17/17 08:14 Potassium 4.4 mmol/L (3.5-5.1) 12/17/17 08:14 Chloride 106 mmol/L (98-107) 12/17/17 08:14 Carbon Dioxide 27 mmol/L (22-30) 12/17/17 08:14 Anion Gap 6 mmol/L 12/17/17 08:14 BUN 14 mg/dL (9-20) 12/17/17 08:14 Creatinine 1.12 mg/dL (0.66-1.25) 12/17/17 08:14 Est GFR (CKD-EPI)AfAm >90 (>60 ml/min/1.73 sqM) 12/17/17 08:14 Est GFR (CKD-EPI)NonAf 83 (>60 ml/min/1.73 sqM) 12/17/17 08:14 Glucose 108 mg/dL (74-99) H 12/17/17 08:14 Calcium 9.9 mg/dL (8.4-10.2) 12/17/17 08:14 Total Bilirubin 0.8 mg/dL (0.2-1.3) 12/17/17 08:14 Conjugated Bilirubin 0.0 mg/dL (0.0-0.3) 12/17/17 08:14 Unconjugated Bilirubin 0.5 mg/dL (0.0-1.1) 12/17/17 08:14 Delta Bilirubin 0.3 mg/dL (0.0-0.2) H 12/17/17 08:14 AST 30 U/L (17-59) 12/17/17 08:14 ALT 25 U/L (21-72) 12/17/17 08:14 Alkaline Phosphatase 65 U/L (38-126) 12/17/17 08:14 Total Protein 6.7 g/dL (6.3-8.2) 12/17/17 08:14 Albumin 4.1 g/dL (3.5-5.0) 12/17/17 08:14 Triglycerides 91 mg/dL (<150) 12/17/17 08:14 Cholesterol 135 mg/dL (<200) 12/17/17 08:14 LDL Cholesterol, Calc 66 mg/dL (0-99) 12/17/17 08:14 HDL Cholesterol 51 mg/dL (40-60) 12/17/17 08:14 TSH 1.420 mIU/L (0.465-4.680) 12/17/17 08:14 Urine Color Yellow 12/16/17 17:15 Urine Appearance Clear (Clear) 12/16/17 17:15 Urine pH 5.5 (5.0-8.0) 12/16/17 17:15 Ur Specific [place] 1.019 (1.001-1.035) 12/16/17 17:15 Urine Protein Negative (Negative) 12/16/17 17:15 Urine Glucose (UA) Negative (Negative) 12/16/17 17:15 Urine Ketones Negative (Negative) 12/16/17 17:15 Urine Blood Moderate (Negative) H 12/16/17 17:15 Urine Nitrite Negative (Negative) 12/16/17 17:15 Urine Bilirubin Negative (Negative) 12/16/17 17:15 Urine Urobilinogen 2.0 mg/dL (<2.0) 12/16/17 17:15 Ur Leukocyte Esterase Negative (Negative) 12/16/17 17:15 Urine RBC 2 /hpf (0-5) 12/16/17 17:15 Urine WBC 1 /hpf (0-5) 12/16/17 17:15 Uric Acid Crystals Rare /hpf (None) H 12/16/17 17:15 Urine Mucus Rare /hpf (None) H 12/16/17 17:15 Urine Opiates Screen Not Detected (NotDetected) 12/16/17 17:15 Ur Oxycodone Screen Not Detected (NotDetected) 12/16/17 17:15 Urine Methadone Screen Not Detected (NotDetected) 12/16/17 17:15 Ur Propoxyphene Screen Not Detected (NotDetected) 12/16/17 17:15 Ur Barbiturates Screen Not Detected (NotDetected) 12/16/17 17:15 U Tricyclic Antidepress Not Detected (NotDetected) 12/16/17 17:15 Ur Phencyclidine Scrn Not Detected (NotDetected) 12/16/17 17:15 Ur Amphetamines Screen Not Detected (NotDetected) 12/16/17 17:15 U Methamphetamines Scrn Not Detected (NotDetected) 12/16/17 17:15 U Benzodiazepines Scrn Not Detected (NotDetected) 12/16/17 17:15 Urine Cocaine Screen Detected (NotDetected) H 12/16/17 17:15 U Marijuana (THC) Screen Detected (NotDetected) H 12/16/17 17:15 12/17/17 09:40 IDENTIFYING DATA: This patient is a 37-year-old -[place] male who was admitted to the mental health unit through the emergency room for acute suicidal ideation. HPI: The patient was admitted to the mental health unit through the emergency room as he presented with acute suicidal ideation. He described thoughts of hanging himself cutting his wrist or shooting himself with a gun. He states that he is chronically depressed but the symptoms intensified after this past hollowing. He states that it reminded him of not seen his own children. He states he has very little family support. He feels hopeless hopeless and unlovable. He states "I'm giving up on life I don't want to live anymore". He describes having terrible sleep energy during the day as subsequently low. Appetite is impaired he states he enjoys nothing and food doesn't taste good any more. He describes feelings of anhedonia. He reports no homicidal ideation intent or plan. He reports auditory hallucinations that are directing him to kill himself and they make derogatory statements telling him that he is useless and unlovable. He describes no visual hallucinations he describes no specific delusions. He describes no recent hypomanic or manic symptoms. He states that he did have a manic episode 1-2 years ago where he went for several days with increased energy and decreased need for sleep increased goal-directed activity irritability etc. He reports having feelings of anxiety in the morning he does not appear to have panic attacks and does not appear to be generalized throughout the day. PAST PSYCHIATRIC HISTORY: This would be the patient's ninth inpatient psychiatric admission. He reports a history of several suicide attempts the last one occurring one year ago. He states he is trying to cut his wrist in the past and overdose. He most recently was on Trintellix 20 mg daily and Invega Sustenna monthly. He reports being off medications now for several months. He does not feel that the Trintellix is helpful. In the past he has tried Seroquel Vistaril Zoloft Zyprexa Remeron Effexor Saphris and Cymbalta. He thinks that the Effexor was helpful in the past and does not recall any side effects from it. He does feel that the Invega is helpful for auditory hallucinations. He was working with Dr. Hahn at [facility] and a therapist named Bharati. 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 He also has a history of cluster headaches. He states he will take Fioricet and Topamax for the cephalgia. ALLERGIES: Known drug ALLERGIES MEDICATIONS: Refer to [facility] CHEMICAL DEPENDENCY HISTORY: The patient states he's been using alcohol on a regular basis having 2-10 beers a day plus shots. He has been using marijuana daily and uses cocaine 2-3 times a month. He does have a history of abusing opiates but states it's been years since he has used those. He has attempted rehab twice and in 2013 he stayed for the entire duration. FAMILY PSYCHIATRIC HISTORY: None reported no suicides in the family FAMILY CHEMICAL DEPENDENCY HISTORY: His father and brother are known to have alcohol use issues he reports his sister uses crack cocaine and encourages him to use cocaine SOCIAL HISTORY: The patient is 37 years old she single he resides with a friend. He is unemployed and is on a disability income. He has 2 sons ages 8 and 14 but has not seen them in approximately one year. He is from the [place] area he was born and raised by both parents they are now . No history of experience. He has an eighth grade education and later earned a GED. Abuse history none reported. Legal history he was arrested in the past for possession of marijuana and carrying a concealed weapon. He has served up to 1 year in [facility] for his offenses area MENTAL STATUS EXAM: The patient is a thin -[place] male appearing his stated age. He is ambulating with use of a prosthetic. He is dressed in his own clothing eye contact is appropriate. He is cooperative and pleasant. He maintains a dysphoric affect throughout the interaction. He reports a depressed mood with hopelessness thinking and suicidal ideation. He endorses no homicidal ideation intent or plan. He endorses command auditory hallucinations directing him to break things and to harm himself. No visual hallucinations reported. He is endorsing no specific delusions. He demonstrates no tangential thinking loose associations or flight of ideas he does not appear hypomanic or manic. He demonstrates no involuntary repetitive movements. He demonstrates no verbal or physical aggressiveness. He is easily directed during the session. Insight and judgment limited. He is oriented to person place and date. He is able to spell world backwards. STRENGTHS/WEAKNESSES: Strengths: Income, housing, willingness to receive treatment weaknesses: Substance use confounding mood symptoms and psychosis INTELLECTUAL FUNCTIONING: Average IMPRESSIONS: [] 1. Bipolar 1 disorder most recent depressed with psychosis, rule out major depressive disorder severe with psychosis, cannabis use disorder, alcohol use disorder, cocaine use disorder, opiate use disorder in sustained remission 2. History of below the knee amputation, cluster headaches 3. Limited social support PLAN: The patient has been admitted to the mental health unit voluntarily. We reviewed his presenting symptoms and treatment options. He is encouraged to participate in the [facility]. We will initiate Effexor XR 37.5 mg daily and we will titrate this to 75 mg daily over the next few days. We will reinitiate Invega 6 mg at bedtime for his symptoms of psychosis and he may continue Topamax 50 mg twice daily for his cephalgia. We will monitor for alcohol withdrawal symptoms Ativan is available. Vital signs reviewed laboratory results reviewed. The patient will undergo routine history and physical exam with the internal medicine physician. Social work will meet with the patient to complete a psychosocial assessment. We will monitor him for safety.
[2017-12-17] MEDS: VENLAFAXINE HCL ER 37.5 MG CAP PO SCH (10:53)
[2017-12-17] MEDS: TOPIRAMATE 25 MG TAB PO SCH ×2 (10:53→20:13)
[2017-12-17 18:43] LABS: Hemoglobin A1C 5.4 % (4.0-6.0)
--- NOTE | 2017-12-17 19:37 | P.MDCNMH ---
History of Present Illness H&P Date: 12/17/17 Chief Complaint: Suicidal ideation Medical H&P for a psychiatric patient Mr. Herrera is a 37-year-old male with a past medical history of depression, DVT, left BKA secondary to a blood darlin admitted to the hospital for suicidal ideation. Patient is currently in the psychiatric unit and we have been consulted for medical evaluation. Patient has a past medical history of DVT and had a left BKA done in the past. Patient has been noncompliant with his medications. He states that he is on few psychiatric medications but stopped taking them as he was feeling better. But eventually he started to feel sad and unhappy and to the point where he had suicidal ideation and so got admitted himself yet. Patient denies having any drug ALLERGIES. Patient denies having any fevers chills or rigors. No headaches or dizziness or loss of consciousness . Patient denies having any chest pain or palpitations. No cough or difficulty breathing. No abdominal pain nausea vomiting or diarrhea. No dysuria or hematuria. No aches or pains. Review of Systems REVIEW OF SYSTEMS: NEURO:No c/o weakness of the extremties, No facial droop, No speech abnormalities. VASCULAR: Peripheral nervous system within the normal limits no edema HEMATOLOGIC: No history of easy bleeding and bruising . No recent infections . RESPIRATORY: No cough, No SOB, No chest discomfort. IMMUNE: No infections INTEGUMENT: no rashes OPHTHALMOLOGIC: No blurry vision and no eye discharge : No dysuria or hematuria CARDIAC: No chest pain , shortness of breath , paroxysmal nocturnal dyspnea MUSCULOSKELETAL : No Aches or pains in the joints or muscles. GI: No abdominal pain, Nausea or vomiting. No constipation or diarrhea. Past Medical History Past Medical History: Deep Vein Thrombosis (DVT) Additional Past Medical History / Comment(s): Sepsis secondary to a left foot infection from stepping on a nail that developed into gangrene of the second, third and fourth toes status post [id number] amputation, R elbow fracture. History of Any Multi-Drug Resistant Organisms: MRSA Date of last positivie culture/infection: 03/20/15 MDRO Source:: Left fourth finger Past Surgical History: Hernia Repair Additional Past Surgical History / Comment(s): Inguinal hernia repair as child ( does not recall laterallity). Amputation to below left knee on 02/08/2016 Past Anesthesia/Blood Transfusion Reactions: No Reported Reaction Smoking Status: Current every day smoker - Past Family History Father Family Medical History: Cancer Additional Family Medical History / Comment(s): Father of throat cancer at the age of 68yrs. He was a smoker. Mother Family Medical History: Cancer Additional Family Medical History / Comment(s): Mother had lung cancer. She of this at the age of 50yrs. She was a smoker. Brother(s) Additional Family Medical History / Comment(s): He has one brother that is 40 years of age with no major medical problems. Sister(s) Additional Family Medical History / Comment(s): He has one sister that is 39 years of age and does not have any major medical problems. Patient has 2 sons that are currently living with their mother. Medications and Allergies Home Medications Medication Instructions Recorded Confirmed Type Topiramate [Topamax] 50 mg PO BID #28 tab 11/25/16 12/16/17 Rx Paliperidone IM [Invega Sustenna] 234 mg IM Q28D 03/18/17 12/16/17 History Vortioxetine Hydrobromide 20 mg PO HS 03/18/17 12/16/17 History [Trintellix] Ergocalciferol [Vitamin D2] 50,000 unit PO Q7D 12/16/17 12/16/17 History Fenofibrate [Lofibra] 54 mg PO DAILY 12/16/17 12/16/17 History Gabapentin [Neurontin] 100 mg PO TID 12/16/17 12/16/17 History HYDROcodone/APAP 5-325MG [[place] 1 tab PO BID 12/16/17 12/16/17 History 5-325] Allergies Allergy/AdvReac Type Severity Reaction Status Date / Time No Known Allergies Allergy Verified 12/16/17 17:35 Physical Exam Vitals: Vital Signs Temp Pulse Resp BP 12/17/17 16:06 76 138/93 12/17/17 06:15 98.3 F 84 18 139/74 GENERAL EXAM GEN. APPEARANCE: alert, in no apparent distress HEAD EXAM: atraumatic, normocephalic, normal inspection EYE EXAM: normal appearance, PERRL, EOMI. Absent: scleral icterus, conjunctival injection, periorbital swelling NECK EXAM: normal inspection. Absent: tenderness, meningismus, full ROM, lymphadenopathy RESPIRATORY EXAM: normal lung sounds bilaterally. Absent: respiratory distress , wheezes, rales, rhonchi, stridor CARDIOVASCULAR EXAM: regular rate, normal rhythm, normal heart sounds. Absent : systolic murmur, diastolic murmur, rubs, gallop, clicks GI/ABDOMINAL EXAM: soft, normal bowel sounds. Absent: distended, tenderness, guarding, rebound, rigid EXTREMITIES EXAM: Left BKA has prosthesis in place NEUROLOGICAL EXAM: alert, oriented X3, CN II-XII intact, motor sensory deficit Cranial Nerve Examination - Cranial Nerves Cranial Nerve I- Olfactory: Intact Cranial Nerve II- Optic: Intact Cranial Nerve III- Oculomotor: Intact Cranial Nerve IV- Trochlear: Intact Cranial Nerve V- Trigeminal: Intact Cranial Nerve - Abducens: Intact Cranial Nerve VII- Facial: Intact Cranial Nerve VIII- Auditory: Intact Cranial Nerve IX- Glossopharyngeal: Intact Cranial Nerve X- Vagus: Intact Cranial Nerve XI- Accessory: Intact Cranial Nerve XII- Hypoglossal: Intact Results CBC & Chem 7: 12/17/17 08:14 12/17/17 08:14 Labs: Abnormal Lab Results - Last 24 Hours (Table) 12/17/17 12/17/17 Range/Units 08:14 08:14 WBC 14.2 H (3.8-10.6) k/uL Neutrophils # 10.1 H (1.3-7.7) k/uL Glucose 108 H (74-99) mg/dL Delta Bilirubin 0.3 H (0.0-0.2) mg/dL Assessment and Plan Assessment: ASSESSMENT Suicidal ideation Depression Leukocytosis Elevated temperature UDS positive for cocaine and marijuana Plan: Patient has history of DVT in the past and is status post left BKA secondary to a blood clot. But he is not on any anticoagulation now. Patient had a fever of 99.8 and his white count was elevated at 14. But clinically the patient does not have any signs or symptoms suggestive of an underlying infection. His leukocytosis might be reactive. Continue with the current management for his psychiatric issues. Will follow the patient on when necessary basis. Thank you for the consult.
[2017-12-17] MEDS: PALIPERIDONE 6 MG TAB.ER.24 PO SCH (20:13)
[2017-12-18] MEDS: TOPIRAMATE 25 MG TAB PO SCH ×2 (07:54→20:05)
[2017-12-18] MEDS: NICOTINE 21MG/24HR PATCH TRANSDERM SCH (07:54)
[2017-12-18] MEDS: VENLAFAXINE HCL ER 37.5 MG CAP PO SCH (07:54)
--- NOTE | 2017-12-18 08:25 | P.PN ---
Progress Note - Text Progress Note Date: 12/18/17 Interval history: Patient seen in [facility] [place] today. He reports that he only slept about 2 hours last night. He says his sleep has been an ongoing issue for him. He thinks he may have taken trazodone in the past. He is also on Seroquel in the past. He is currently on and they have. He does state that he feels like his mood is improving. He was admitted with depression. He does not voice any current adverse psychotropic medication side effects. Mental status exam: He is alert and cooperative with the interview. His speech is fluent, not rapid or pressured. Thought processes are organized. His mood is improved. He denies any thoughts of harm to self and does not verbalize any thoughts of harm to others. He denies any hallucinations. He does not verbalize any joseph delusions. He does not show any agitation. Plan: Patient will be initiated on trazodone as needed at bedtime to help with insomnia. He will maintain other current psychotropic medication regimen. Continue to monitor for any medication side effects and monitor his ongoing response to treatment.
[2017-12-18 09:36] LABS: Basophils # (A) 0.1 k/uL (0-0.2); Basophils % (A) 1 %; Eosinophils # (A) 0.1 k/uL (0-0.7); Eosinophils % (A) 1 %; HCT 48.2 % (39.0-53.0); HGB 15.1 gm/dL (13.0-17.5); Lymphocytes # (A) 2.6 k/uL (1.0-4.8); Lymphocytes % (A) 24 %; MCH 31.3 pg (25.0-35.0); MCHC 31.3 g/dL (31.0-37.0); Mean Platelet Volume 6.6; Monocytes # (A) 0.5 k/uL (0-1.0); Monocytes % (A) 5 %; Neutrophils # (A) 7.6 k/uL (1.3-7.7); Neutrophils % (A) 68 %; Platelet Count 342 k/uL (150-450); RBC 4.82 m/uL (4.30-5.90); RDW 12.7 % (11.5-15.5); WBC 11.1 k/uL (3.8-10.6)
[2017-12-18] MEDS: ACETAMINOPHEN TAB 325 MG TAB PO PRN (10:32)
[2017-12-18] MEDS ORDERED: PNEUMOCOCCAL VACC-PNEUMOVAX 23 25 MCG/0.5 ML VIAL IM ONE (15:12)
[2017-12-18] MEDS ORDERED: INFLUENZA VACCINE (6 MOS+) 60 MCG/0.5 ML SYRINGE IM ONE (15:13)
--- NOTE | 2017-12-18 16:05 | P.CONS ---
History of Present Illness - Reason for Consult Consult date: 12/17/17 - Chief Complaint Suicidal - History of Present Illness 37 -year-old male presents for evaluation of depression and suicidal ideation. Patient states he plans to hang himself, cut himself, or overdose. He has been off his medications for some time. He also admits to use of cocaine and marijuana. He has been admitted with psychiatric evaluation and treatment in the past. Patient denies any suicide attempt or self-harm. No physical complaints. Review of Systems Constitutional: Reports as per HPI Past Medical History Past Medical History: Deep Vein Thrombosis (DVT) Additional Past Medical History / Comment(s): Sepsis secondary to a left foot infection from stepping on a nail that developed into gangrene of the second, third and fourth toes status post [id number] amputation, R elbow fracture. History of Any Multi-Drug Resistant Organisms: MRSA Year Discovered:: 03/20/15 MDRO Source:: Left fourth finger Past Surgical History: Hernia Repair Additional Past Surgical History / Comment(s): Inguinal hernia repair as child ( does not recall laterallity). Amputation to below left knee on 02/08/2016 Past Anesthesia/Blood Transfusion Reactions: No Reported Reaction Smoking Status: Current every day smoker - Past Family History Father Family Medical History: Cancer Additional Family Medical History / Comment(s): Father of throat cancer at the age of 68yrs. He was a smoker. Mother Family Medical History: Cancer Additional Family Medical History / Comment(s): Mother had lung cancer. She of this at the age of 50yrs. She was a smoker. Brother(s) Additional Family Medical History / Comment(s): He has one brother that is 40 years of age with no major medical problems. Sister(s) Additional Family Medical History / Comment(s): He has one sister that is 39 years of age and does not have any major medical problems. Patient has 2 sons that are currently living with their mother. Medications and Allergies Home Medications Medication Instructions Recorded Confirmed Type Topiramate [Topamax] 50 mg PO BID #28 tab 11/25/16 12/16/17 Rx Paliperidone IM [Invega Sustenna] 234 mg IM Q28D 03/18/17 12/16/17 History Vortioxetine Hydrobromide 20 mg PO HS 03/18/17 12/16/17 History [Trintellix] Ergocalciferol [Vitamin D2] 50,000 unit PO Q7D 12/16/17 12/16/17 History Fenofibrate [Lofibra] 54 mg PO DAILY 12/16/17 12/16/17 History Gabapentin [Neurontin] 100 mg PO TID 12/16/17 12/16/17 History HYDROcodone/APAP 5-325MG [[place] 1 tab PO BID 12/16/17 12/16/17 History 5-325] Allergies Allergy/AdvReac Type Severity Reaction Status Date / Time No Known Allergies Allergy Verified 12/16/17 17:35 Physical Exam Vitals: Vital Signs Temp Pulse Pulse Resp BP BP Pulse Ox 12/17/17 06:15 98.3 F 84 18 139/74 12/16/17 18:43 99.8 F H 76 16 135/78 97 12/16/17 16:34 98.3 F 72 18 132/91 98 Intake and Output 12/16/17 12/17/17 12/17/17 22:59 06:59 14:59 Other: Weight 66 kg - Constitutional General appearance: Present: average body habitus, cooperative, no acute distress - EENT Eyes: Present: anicteric sclerae, EOMI, PERRLA, normal appearance ENT: Present: hearing grossly normal, normal oropharynx Ears: bilateral: normal - Neck Neck: Present: normal ROM. Absent: lymphadenopathy, rigidity, thyromegaly Carotids: negative: bruit present Thyroid: bilateral: normal size, negative: enlarged, nodule - Respiratory Respiratory: bilateral: CTA, negative: rales, rhonchi, wheezing - Cardiovascular Rhythm: regular Heart sounds: normal: S1, S2 Abnormal Heart Sounds: Absent: systolic murmur, diastolic murmur - Gastrointestinal General gastrointestinal: Present: normal bowel sounds, soft. Absent: distended , organomegaly, tenderness - Genitourinary Genitourinary Comment(s): deferred - Integumentary Integumentary: Present: normal turgor. Absent: jaundiced, rash, ulcer - Neurologic Neurologic: Present: CNII-XII intact. Absent: focal deficits - Musculoskeletal Musculoskeletal: Present: gait normal, strength equal bilaterally - Psychiatric Psychiatric: Present: A&O x's 3, appropriate affect, intact judgment & insight Results CBC & Chem 7: 11/02/18 08:14 12/17/17 08:14 Labs: Abnormal Lab Results - Last 24 Hours (Table) 12/16/17 12/17/17 12/17/17 Range/Units 17:15 08:14 08:14 WBC 14.2 H (3.8-10.6) k/uL Neutrophils # 10.1 H (1.3-7.7) k/uL Glucose 108 H (74-99) mg/dL Delta Bilirubin 0.3 H (0.0-0.2) mg/dL Urine Blood Moderate H (Negative) Uric Acid Crystals Rare H (None) /hpf Urine Mucus Rare H (None) /hpf Urine Cocaine Screen Detected H (NotDetected) U Marijuana (THC) Screen Detected H (NotDetected) Assessment and Plan Assessment: 1. Suicidal ideation 2. History of L below-knee amputation 3. Cluster headaches 4. History of DVT; not on any anticoagulation 5. Leukocytosis; no signs of sepsis We will follow the patient with you; we will reorder CBC to trend white blood count and initiate sepsis workup if white blood count continues to trend up Time with Patient: Greater than 30
[2017-12-18] MEDS: PALIPERIDONE 6 MG TAB.ER.24 PO SCH (20:05)
[2017-12-18] MEDS: traZODone HCL 50 MG TAB PO PRN (20:06)
[2017-12-19] MEDS: NICOTINE 21MG/24HR PATCH TRANSDERM SCH (07:42)
[2017-12-19] MEDS: VENLAFAXINE HCL ER 37.5 MG CAP PO SCH (07:43)
[2017-12-19] MEDS: TOPIRAMATE 25 MG TAB PO SCH ×2 (07:43→20:11)
[2017-12-19] MEDS: ACETAMINOPHEN TAB 325 MG TAB PO PRN (10:29)
[2017-12-19] MEDS: LORazepam 1 MG TAB PO PRN (13:58)
[2017-12-19 14:04] VITALS: RESP 16
--- NOTE | 2017-12-19 14:27 | P.PN ---
Progress Note - Text Progress Note Date: 12/19/17 Interval history: [facility] is [facility] in [facility] today. He reports that he slept better last night with the Desyrel and he did not have any carryover sedation today. His mood him is improved. He does not seem to voice any adverse psychotropic medication side effects. Mental status exam: He is alert and cooperative with the interview. His speech is fluent, not rapid or pressured. Thought processes organized. His mood is improved. He denies any thoughts of harm to self. He does not voice any thoughts of harm to others. No evidence of psychosis or agitation. Plan: Patient will be maintained on current psychotropic medication regimen. Continue to monitor any medication side effects monitor his ongoing response to treatment area
[2017-12-19] MEDS: PALIPERIDONE 6 MG TAB.ER.24 PO SCH (20:11)
[2017-12-19] MEDS: traZODone HCL 50 MG TAB PO PRN (20:12)
[2017-12-20 06:36] VITALS: BP 136/65; PULSE 94; TEMP 97.8
[2017-12-20] MEDS: VENLAFAXINE HCL ER 37.5 MG CAP PO SCH (08:24)
[2017-12-20] MEDS: TOPIRAMATE 25 MG TAB PO SCH (08:24)
[2017-12-20] MEDS: NICOTINE 21MG/24HR PATCH TRANSDERM SCH (08:25)
[2017-12-20] MEDS: LORazepam 1 MG TAB PO PRN (09:17)
--- NOTE | 2017-12-20 10:11 | P.DS ---
Providers Date of admission: 12/16/17 18:01 Expected date of discharge: 12/20/17 Attending physician: Tacho Castro Consults: 12/16/17 20:40 Consult Physician Routine Consulting Provider: Fermin Ty Consult Reason/Comments: medical management Do you want consulting provider notified?: Already Contacted Primary care physician: [facility] - Discharge Diagnosis(es) (1) Bipolar 1 disorder, depressed Current Visit: No Status: Acute Priority: High (2) Cocaine use disorder Current Visit: Yes Status: Acute Priority: Medium (3) Cannabis use disorder, mild, abuse Current Visit: Yes Status: Acute Priority: Medium (4) Opioid use disorder, moderate, in sustained remission Current Visit: Yes Status: Acute Priority: Low (5) Alcohol use disorder Current Visit: Yes Status: Acute Priority: Medium Hospital Course: Brief summary of admission note: This patient is a 37-year-old -Citizen Of [place] male who was admitted to the mental health unit through the emergency room for suicidal ideation. The patient reported having thoughts of cutting himself, hanging himself, or shooting himself. He reported he was chronically depressed and had been off of his medication. He states Halloween was a trigger as he saw children with her parents and he had not seen his own children for extended period of time. He reported feeling hopeless and unlovable. He reported having poor sleep low energy impaired appetite. He reported auditory hallucinations that were directing self-harm and making derogatory statements. He reported a history of having a manic episode in the past. For further detail please refer to my psychiatric evaluation dated 12/17/2017. Summary of hospital course: The patient was admitted to the mental health unit voluntarily. We reviewed his presenting symptoms and treatment options. We decided we would discontinue the Trintellix and initiate Effexor XR titrating the dose to 75 mg daily. We reinitiated the invega 6 mg at bedtime. Over the weekend he was placed on trazodone 50 mg as needed for sleep. Topamax 50 mg twice daily was restarted for his chronic cephalgia. The patient participated in groups he demonstrated no agitated behavior he reported a quick resolution of symptoms here on the mental health unit. It appears that his recent cocaine use incited/exacerbated his symptoms of psychosis and cause significant dysphoria. We discussed his use of substances and available treatment. He does not wish to participate in inpatient chemical dependency treatment. He is reporting no suicidal ideation intent or plan. He verbalizes future oriented thinking. He was seen by internal medicine for routine history and physical exam. Mental status exam: The patient is a -Citizen Of [place] male appearing his stated age. He is dressed in his own clothing wearing jeans and a sweater he is wearing eyeglasses. 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 He reports no suicidal ideation intent or plan he reports no homicidal ideation intent or plan. He is endorsing no auditory or visual hallucinations. He is endorsing no command auditory hallucinations. He is endorsing no specific delusions. There is no observed evidence of psychosis. Thought process is linear there is no tangential thinking loose associations or flight of ideas. He does not appear hypomanic or manic. He demonstrates no involuntary repetitive movements. He demonstrates no verbal or physical aggressiveness. Insight and judgment improved. He is oriented to person place and date. Affect is appropriately expressive any. Euthymic. Impressions: 1. Bipolar 1 disorder most recent depressed with psychosis, cocaine use disorder, rule out mood and psychotic symptoms secondary to recent cocaine use, alcohol use disorder, cannabis use disorder, opioid use disorder in sustained remission 2. 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 He will follow up with [facility] for outpatient care. He was encouraged to consider inpatient chemical dependency treatment but he refuses that level of care and states he will address his substance use issues as an outpatient. He is encouraged to attend AA or NA. He will continue on Effexor XR 75 mg daily, invega 6 mg at bedtime, trazodone 50 mg at bedtime as needed for insomnia. He will continue Topamax 50 mg twice daily for complaint of cephalgia due to cluster headaches. Social work will arrange his outpatient follow-up. Social will be asked to arrange a support meeting if possible. There is no imminent safety risks the patient is appropriate for transition back to outpatient care. He is instructed to abstain from all use of alcohol marijuana or any other illicit drug. We discussed the substances exacerbate mood and psychotic symptoms and elevate his safety risk. He is instructed to return to the hospital with any acute safety concerns. Patient Condition at Discharge: Stable Plan - Discharge Summary Discharge Rx Participant: No New Discharge Prescriptions: New Nicotine 21Mg/24Hr Patch [Habitrol] 1 patch TRANSDERM DAILY #10 patch Paliperidone [Invega] 6 mg PO HS #30 tab.er.24 traZODone HCL [Desyrel] 50 mg PO HS PRN #30 tab PRN Reason: Insomnia Venlafaxine HCl ER [Effexor XR] 75 mg PO DAILY #30 cap.er.24h Continue Topiramate [Topamax] 50 mg PO BID #60 tab Discontinued Vortioxetine Hydrobromide [Trintellix] 20 mg PO HS Paliperidone IM [Invega Sustenna] 234 mg IM Q28D HYDROcodone/APAP 5-325MG [[place] 5-325] 1 tab PO BID Gabapentin [Neurontin] 100 mg PO TID Fenofibrate [Lofibra] 54 mg PO DAILY Ergocalciferol [Vitamin D2] 50,000 unit PO Q7D Discharge Medication List Nicotine 21Mg/24Hr Patch [Habitrol] 1 patch TRANSDERM DAILY #10 patch 12/20/17 [ Rx] Paliperidone [Invega] 6 mg PO HS #30 tab.er.24 12/20/17 [Rx] Topiramate [Topamax] 50 mg PO BID #60 tab 12/20/17 [Rx] Venlafaxine HCl ER [Effexor XR] 75 mg PO DAILY #30 cap.er.24h 12/20/17 [Rx] traZODone HCL [Desyrel] 50 mg PO HS PRN #30 tab 12/20/17 [Rx] Follow up Appointment(s)/[facility] - 1-2 days
[2017-12-21] MEDS ORDERED: VENLAFAXINE HCL ER 75 MG CAP PO SCH (09:00)
== END 2017-12-20 12:25 | disposition home or self-care (01) | DRG 885 ==
LOC: EC 16:28 → 3MHU 18:01
PROVIDERS: ADMIT Psychiatry & Neurology Psychiatry; ATTEND Psychiatry & Neurology Psychiatry
DX: F31.5 Bipolar disorder, current episode depressed, severe, with psychotic features (principal); R45.851 Suicidal ideations; F10.10 Alcohol abuse, uncomplicated; F11.21 Opioid dependence, in remission; F12.10 Cannabis abuse, uncomplicated; F14.14 Cocaine abuse with cocaine-induced mood disorder; F17.210 Nicotine dependence, cigarettes, uncomplicated; F41.9 Anxiety disorder, unspecified; D72.829 Elevated white blood cell count, unspecified; G44.009 Cluster headache syndrome, unspecified, not intractable; Z79.899 Other long term (current) drug therapy; Z80.0 Family history of malignant neoplasm of digestive organs; Z80.1 Family history of malignant neoplasm of trachea, bronchus and lung; Z86.718 Personal history of other venous thrombosis and embolism; Z89.512 Acquired absence of left leg below knee; Z56.0 Unemployment, unspecified; Z86.14 Personal history of Methicillin resistant Staphylococcus aureus infection; G47.00 Insomnia, unspecified; T43.506A Underdosing of unspecified antipsychotics and neuroleptics, initial encounter; Z91.128 Patient's intentional underdosing of medication regimen for other reason; R50.9 Fever, unspecified; Z65.3 Problems related to other legal circumstances
CPT/HCPCS: 80053; 80061; 80306; 81001; 82075; 82248; 83036; 84443; 84484; 85025; 90686; 90732; 93005; 99285

== ENCOUNTER 2018-02-28 15:23 | Emergency (ER) | payer OTHER ==
[2018-02-28 15:41] VITALS: RESP 18
[2018-02-28] MEDS ORDERED: KETOROLAC 30 MG/ML 1 ML VIAL IVP STA (15:48)
[2018-02-28] MEDS ORDERED: SODIUM CHLORIDE 0.9% 1,000 ML IV STA (15:48)
[2018-02-28] MEDS ORDERED: SODIUM CHLORIDE 0.9% 500 ML 500 ML IV STA (15:48)
--- NOTE | 2018-02-28 16:03 | ED ---
Abdominal Pain HPI - General Chief Complaint: Abdominal Pain Stated Complaint: Stomach pain Time Seen by Provider: 02/28/18 15:48 Source: patient, RN notes reviewed, old records reviewed Mode of arrival: ambulatory Limitations: no limitations - History of Present Illness Initial Comments: This is a 37-year-old male the ER for evaluation. Patient resents today for evaluation regarding epigastric abdominal pain. Positive nausea no vomiting no significant known diarrhea no fevers. No recent travel history no known sick contacts. Symptoms greater than a month. Patient has no modifying factors for symptoms at home, patient states his pain is been persistent. He never has problems like this before. He has no prior surgical history. No significant medical history MD Complaint: abdominal pain -: month(s) Location: diffuse, periumbilical Radiation: none Migration to: no migration Severity: mild Severity scale (1-10): 3 Quality: cramping Consistency: intermittent Improves With: nothing Worsens With: nothing Associated Symptoms: denies other symptoms Treatments Prior to Arrival: other (Tylenol) - Related Data Home Medications Medication Instructions Recorded Confirmed Acetaminophen Tab [Tylenol Tab] 650 mg PO Q6H PRN 02/28/18 02/28/18 Naproxen Sodium [Aleve] 220 - 400 mg PO BID PRN 02/28/18 02/28/18 Allergies Allergy/AdvReac Type Severity Reaction Status Date / Time No Known Allergies Allergy Verified 02/28/18 16:38 Review of Systems ROS Statement: Those systems with pertinent positive or pertinent negative responses have been documented in the HPI. ROS Other: All systems not noted in ROS Statement are negative. Past Medical History Past Medical History: Deep Vein Thrombosis (DVT) Additional Past Medical History / Comment(s): Sepsis secondary to a left foot infection from stepping on a nail that developed into gangrene of the second, third and fourth toes status post [id number] amputation, R elbow fracture. History of Any Multi-Drug Resistant Organisms: MRSA Date of last positivie culture/infection: 03/20/15 MDRO Source:: Left fourth finger Past Surgical History: Hernia Repair Additional Past Surgical History / Comment(s): Inguinal hernia repair as child ( does not recall laterallity). 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 He was a smoker. Mother Family Medical History: Cancer Additional Family Medical History / Comment(s): Mother had lung cancer. She of this at the age of 50yrs. She was a smoker. Brother(s) Additional Family Medical History / Comment(s): He has one brother that is 40 years of age with no major medical problems. Sister(s) Additional Family Medical History / Comment(s): He has one sister that is 39 years of age and does not have any major medical problems. Patient has 2 sons that are currently living with their mother. General Exam Limitations: no limitations General appearance: alert, in no apparent distress Head exam: Present: atraumatic, normocephalic, normal inspection Eye exam: Present: normal appearance, PERRL, EOMI. Absent: scleral icterus, conjunctival injection, periorbital swelling ENT exam: Present: normal exam, mucous membranes moist Neck exam: Present: normal inspection. Absent: tenderness, meningismus, lymphadenopathy Respiratory exam: Present: normal lung sounds bilaterally. Absent: respiratory distress, wheezes, rales, rhonchi, stridor Cardiovascular Exam: Present: regular rate, normal rhythm, normal heart sounds. Absent: systolic murmur, diastolic murmur, rubs, gallop, clicks GI/Abdominal exam: Present: soft, normal bowel sounds. Absent: distended, tenderness, guarding, rebound, rigid Extremities exam: Present: normal inspection, full ROM, normal capillary refill. Absent: tenderness, pedal edema, joint swelling, calf tenderness Back exam: Present: normal inspection Neurological exam: Present: alert, oriented X3, CN II-XII intact Psychiatric exam: Present: normal affect, normal mood Skin exam: Present: warm, dry, intact, normal color. Absent: rash Course Vital Signs 02/28/18 02/28/18 15:38 18:36 Temperature 98.7 F 97.6 F Pulse Rate 97 81 Respiratory 18 18 Rate Blood Pressure 134/81 132/98 O2 Sat by Pulse 99 99 Oximetry Medical Decision Making - Medical Decision Making 37 male the ER with nonspecific abdominal pain, labwork and CT abdomen pelvis negative for acute disease. Patient can be discharged home - Lab Data Result diagrams: 02/28/18 17:08 02/28/18 17:08 Lab Results 02/28/18 02/28/18 Range/Units 17:08 17:08 WBC 15.0 H (3.8-10.6) k/uL RBC 4.60 (4.30-5.90) m/uL Hgb 14.8 (13.0-17.5) gm/dL Hct 44.8 (39.0-53.0) % MCV 97.3 (80.0-100.0) fL MCH 32.2 (25.0-35.0) pg MCHC 33.1 (31.0-37.0) g/dL RDW 12.7 (11.5-15.5) % Plt Count 310 (150-450) k/uL Neutrophils % 70 % Lymphocytes % 22 % Monocytes % 4 % Eosinophils % 2 % Basophils % 0 % Neutrophils # 10.6 H (1.3-7.7) k/uL Lymphocytes # 3.4 (1.0-4.8) k/uL Monocytes # 0.6 (0-1.0) k/uL Eosinophils # 0.3 (0-0.7) k/uL Basophils # 0.1 (0-0.2) k/uL Sodium 139 (137-145) mmol/L Potassium 4.3 (3.5-5.1) mmol/L Chloride 110 H (98-107) mmol/L Carbon Dioxide 23 (22-30) mmol/L Anion Gap 6 mmol/L BUN 11 (9-20) mg/dL Creatinine 0.94 (0.66-1.25) mg/dL Est GFR (CKD-EPI)AfAm >90 (>60 ml/min/1.73 sqM) Est GFR (CKD-EPI)NonAf >90 (>60 ml/min/1.73 sqM) Glucose 81 (74-99) mg/dL Calcium 9.3 (8.4-10.2) mg/dL Total Bilirubin 0.3 (0.2-1.3) mg/dL AST 36 (17-59) U/L ALT 57 (21-72) U/L Alkaline Phosphatase 51 (38-126) U/L Total Protein 6.2 L (6.3-8.2) g/dL Albumin 3.8 (3.5-5.0) g/dL Amylase 51 (30-110) U/L Lipase 104 (23-300) U/L - Radiology Data Radiology results: report reviewed (CT abdomen pelvis is negative for acute disease), image reviewed Disposition Clinical Impression: Abdominal pain, Gastroenteritis Disposition: HOME SELF-CARE Condition: Good Instructions: Gastroenteritis (ED) Is patient prescribed a controlled substance at d/c from ED?: No Referrals: [facility] [Primary Care Provider] - 1-2 days
[2018-02-28 17:21] LABS: Basophils # (A) 0.1 k/uL (0-0.2); Basophils % (A) 0 %; Eosinophils # (A) 0.3 k/uL (0-0.7); Eosinophils % (A) 2 %; HCT 44.8 % (39.0-53.0); HGB 14.8 gm/dL (13.0-17.5); Lymphocytes # (A) 3.4 k/uL (1.0-4.8); Lymphocytes % (A) 22 %; MCH 32.2 pg (25.0-35.0); MCHC 33.1 g/dL (31.0-37.0); MCV 97.3 fL (80.0-100.0); Monocytes # (A) 0.6 k/uL (0-1.0); Monocytes % (A) 4 %; Neutrophils # (A) 10.6 k/uL (1.3-7.7); Neutrophils % (A) 70 %; Platelet Count 310 k/uL (150-450); RDW 12.7 % (11.5-15.5)
[2018-02-28 17:41] LABS: ALT 57 U/L (21-72); AST 36 U/L (17-59); Albumin 3.8 g/dL (3.5-5.0); Alkaline Phosphatase 51 U/L (38-126); Amylase 51 U/L (30-110); Anion Gap 6 mmol/L; Blood Urea Nitrogen 11 mg/dL (9-20); Calcium 9.3 mg/dL (8.4-10.2); Carbon Dioxide 23 mmol/L (22-30); Chloride 110 mmol/L (98-107); Glucose 81 mg/dL (74-99); Lipase 104 U/L (23-300); Potassium 4.3 mmol/L (3.5-5.1); Sodium 139 mmol/L (137-145); Total Bilirubin 0.3 mg/dL (0.2-1.3); Total Protein 6.2 g/dL (6.3-8.2)
--- NOTE | 2018-02-28 18:00 | CT ---
EXAMINATION TYPE: CT abdomen pelvis w con DATE OF EXAM: 02/28/2018 COMPARISON: None Multiple axial sections were obtained from the diaphragm to the floor of the pelvis with intravenous contrast. HISTORY: ABD pain [id number] CT DLP: 570 mGycm Automated exposure control for dose reduction was used. TECHNIQUE: Helical acquisition of images was performed from the lung bases through the pelvis. CONTRAST: Performed without Oral Contrast and with IV Contrast, patient injected with 100 mL of Isovue 300. FINDINGS: There is mild subsegmental atelectasis at the lung bases. Heart size is normal. There is no pericardi al effusion. There is no pleural effusion. Liver spleen pancreas gallbladder appear normal. Bile ducts are not dilated. The stomach appears norm al. There is no adrenal mass. There is a 2 mm calculus in the left kidney. There is no hydronephrosis. Ur eters are not dilated. The bladder distends smoothly. There is no free fluid in the pelvis. There is no inguinal hernia. There is minimal prosthetic calcification. I see no intestinal wall thickening. T here is no evidence of a bowel obstruction. There is no ascites. There is no sign of free air. There are some mildly dilated loops of proximal jejunum that measure up to 3.3 cm. Large bowel pattern is f airly normal. The bony structures are intact. There is no lumbar compression fracture. IMPRESSION: PROMINENT PROXIMAL JEJUNUM COULD RELATE TO GASTROENTERITIS OR LOCALIZED ILEUS. I DO NOT SEE EVIDENCE OF A MECHANICAL BOWEL OBSTRUCTION. THERE IS CLEARING OF THE CONSTIPATION COMPARED TO OLD CT SCAN OF 1 04/08/2015..
[2018-02-28] MEDS ORDERED: ONDANSETRON 4 MG/2 ML VIAL IVP STA (18:14)
[2018-02-28] MEDS ORDERED: DICYCLOMINE 20 MG TAB PO STA (18:14)
[2018-02-28] MEDS ORDERED: ACET/COD 300 MG/30 MG STARTER PACK 6 TAB BTL PO STA (18:27)
[2018-02-28] MEDS ORDERED: Acetaminophen-Codeine 300-30mg TAB PO STA (18:27)
[2018-02-28 18:37] VITALS: BP 132/98; PULSE 81; TEMP 97.6
== END 2018-02-28 18:37 | disposition home or self-care (01) ==
LOC: EC 15:23
DX: K52.9 Noninfective gastroenteritis and colitis, unspecified (principal); F17.200 Nicotine dependence, unspecified, uncomplicated; Z86.14 Personal history of Methicillin resistant Staphylococcus aureus infection; Z86.19 Personal history of other infectious and parasitic diseases; Z87.19 Personal history of other diseases of the digestive system; Z86.718 Personal history of other venous thrombosis and embolism; Z87.828 Personal history of other (healed) physical injury and trauma; Z89.512 Acquired absence of left leg below knee; Z98.890 Other specified postprocedural states
CPT/HCPCS: 36415; 80053; 82150; 83690; 85025; 74177; 99284; 96374; 96375; 96361; J2405; J1885; Q9967

== ENCOUNTER 2019-04-26 22:30 | Inpatient (IN) | payer MEDICAID, OTHER ==
[2019-04-26] MEDS ORDERED: LORazepam 1 MG TAB PO STA (23:28)
[2019-04-27 00:09] LABS: Basophils % (A) 0 %; Eosinophils # (A) 0.2 k/uL (0-0.7); Eosinophils % (A) 2 %; HCT 45.9 % (39.0-53.0); HGB 14.8 gm/dL (13.0-17.5); Lymphocytes # (A) 3.1 k/uL (1.0-4.8); Lymphocytes % (A) 37 %; MCH 29.9 pg (25.0-35.0); MCHC 32.3 g/dL (31.0-37.0); MCV 92.7 fL (80.0-100.0); Mean Platelet Volume 7.5; Monocytes # (A) 0.3 k/uL (0-1.0); Monocytes % (A) 4 %; Neutrophils # (A) 4.6 k/uL (1.3-7.7); Neutrophils % (A) 55 %; Platelet Count 299 k/uL (150-450); RBC 4.95 m/uL (4.30-5.90); WBC 8.4 k/uL (3.8-10.6)
[2019-04-27 00:21] LABS: ALT 41 U/L (4-49); AST 45 U/L (17-59); African American GFR (CKD) >90 (>60 ml/min/1.73 sqM); Albumin 4.3 g/dL (3.5-5.0); Alkaline Phosphatase 62 U/L (38-126); Anion Gap 8 mmol/L; Blood Urea Nitrogen 11 mg/dL (9-20); Calcium 9.5 mg/dL (8.4-10.2); Carbon Dioxide 26 mmol/L (22-30); Chloride 103 mmol/L (98-107); Glucose 104 mg/dL (74-99); Non-African American GFR(CKD) >90 (>60 ml/min/1.73 sqM); Potassium 4.1 mmol/L (3.5-5.1); Sodium 137 mmol/L (137-145); Total Bilirubin 0.2 mg/dL (0.2-1.3); Total Protein 6.8 g/dL (6.3-8.2)
--- NOTE | 2019-04-27 02:09 | ED ---
Psych HPI - General Chief Complaint: Psychiatric Symptoms Stated Complaint: Mental Health Time Seen by Provider: 04/26/19 22:35 Source: patient, EMS Mode of arrival: EMS - History of Present Illness Initial Comments: The patient is a 38-year-old male with previous history of left BKA, polysubstance abuse who presents to the emergency room with reported suicidal ideations and manic behavior. The patient reports that for the past month he has had extreme paranoia. Tonight he called 911 from a shed. He told police that he wanted to kill himself. States that he is suicidal because his family has pushed him away. Also reports that the phone lines are being tapped and he is being spied on. He was found in the shed with a handmade weapon and methamphetamines. States that he has been of using meth. Denies use of any other illicit substances. The patient does come in and is hyperverbal with paranoid thoughts. States that he has been diagnosed with depression with p sychotic features however he refuses to take any medication. He is not currently under any treatment. Remainder of the HPI is limited because the patient's current state - Related Data Home Medications Medication Instructions Recorded Confirmed Acetaminophen Tab [Tylenol Tab] 650 mg PO Q6H PRN 02/28/18 04/27/19 Naproxen Sodium [Aleve] 220 - 400 mg PO BID PRN 02/28/18 04/27/19 Allergies Allergy/AdvReac Type Severity Reaction Status Date / Time No Known Allergies Allergy Verified 04/27/19 15:18 Review of Systems ROS Statement: Those systems with pertinent positive or pertinent negative responses have been documented in the HPI. ROS Other: All systems not noted in ROS Statement are negative. Past Medical History Past Medical History: Deep Vein Thrombosis (DVT) Additional Past Medical History / Comment(s): Sepsis secondary to a left foot infection from stepping on a nail that developed into gangrene of the second, third and fourth toes status post [id number] amputation, R elbow fracture. History of Any Multi-Drug Resistant Organisms: MRSA Date of last positivie culture/infection: 03/20/15 MDRO Source:: Left fourth finger Past Surgical History: Hernia Repair Additional Past Surgical History / Comment(s): Inguinal hernia repair as child (does not recall laterallity). Amputation to below left knee on 02/08/2016 Past Anesthesia/Blood Transfusion Reactions: No Reported Reaction Past Psychological History: Anxiety, Bipolar, Depression Smoking Status: Current every day smoker Past Alcohol Use History: Occasional Past Drug Use History: Cocaine, Marijuana, Methamphetamine - Past Family History Father Family Medical History: Cancer Additional Family Medical History / Comment(s): Father of throat cancer at the age of 68yrs. He was a smoker. Mother Family Medical History: Cancer Additional Family Medical History / Comment(s): Mother had lung cancer. She of this at the age of 50yrs. She was a smoker. Brother(s) Additional Family Medical History / Comment(s): He has one brother that is 40 years of age with no major medical problems. Sister(s) Additional Family Medical History / Comment(s): He has one sister that is 39 years of age and does not have any major medical problems. Patient has 2 sons that are currently living with their mother. Course Vital Signs 04/26/19 04/27/19 22:31 02:50 Temperature 97.6 F 97.4 F L Pulse Rate 92 69 Respiratory 18 16 Rate Blood Pressure 139/99 90/62 O2 Sat by Pulse 98 99 Oximetry Medical Decision Making - Medical Decision Making Upon arrival the patient was placed into room 4. A thorough history and physical exam is performed. He is petitioned by police. I evaluated the patient myself and he is very paranoid and hyperverbal. I ordered laboratory studies and a urinalysis. The patient is given 2 mg of Ativan. I did cert the patient. I do believe he requires further psychiatric treatment and he is currently awaiting EPS evaluation - Lab Data Result diagrams: 04/26/19 23:48 04/26/19 23:48 Lab Results 04/26/19 04/26/19 04/26/19 Range/Units 23:48 23:48 23:48 WBC 8.4 (3.8-10.6) k/uL RBC 4.95 (4.30-5.90) m/uL Hgb 14.8 (13.0-17.5) gm/dL Hct 45.9 (39.0-53.0) % MCV 92.7 (80.0-100.0) fL MCH 29.9 (25.0-35.0) pg MCHC 32.3 (31.0-37.0) g/dL RDW 12.0 (11.5-15.5) % Plt Count 299 (150-450) k/uL Neutrophils % 55 % Lymphocytes % 37 % Monocytes % 4 % Eosinophils % 2 % Basophils % 0 % Neutrophils # 4.6 (1.3-7.7) k/uL Lymphocytes # 3.1 (1.0-4.8) k/uL Monocytes # 0.3 (0-1.0) k/uL Eosinophils # 0.2 (0-0.7) k/uL Basophils # 0.0 (0-0.2) k/uL Sodium 137 (137-145) mmol/L Potassium 4.1 (3.5-5.1) mmol/L Chloride 103 (98-107) mmol/L Carbon Dioxide 26 (22-30) mmol/L Anion Gap 8 mmol/L BUN 11 (9-20) mg/dL Creatinine 0.93 (0.66-1.25) mg/dL Est GFR (CKD-EPI)AfAm >90 (>60 ml/min/1.73 sqM) Est GFR (CKD-EPI)NonAf >90 (>60 ml/min/1.73 sqM) Glucose 104 H (74-99) mg/dL Calcium 9.5 (8.4-10.2) mg/dL Total Bilirubin 0.2 (0.2-1.3) mg/dL AST 45 (17-59) U/L ALT 41 (4-49) U/L Alkaline Phosphatase 62 (38-126) U/L Total Protein 6.8 (6.3-8.2) g/dL Albumin 4.3 (3.5-5.0) g/dL TSH 1.280 (0.465-4.680) mIU/L Urine Opiates Screen (NotDetected) Ur Oxycodone Screen (NotDetected) Urine Methadone Screen (NotDetected) Ur Propoxyphene Screen (NotDetected) Ur Barbiturates Screen (NotDetected) U Tricyclic Antidepress (NotDetected) Ur Phencyclidine Scrn (NotDetected) Ur Amphetamines Screen (NotDetected) U Methamphetamines Scrn (NotDetected) U Benzodiazepines Scrn (NotDetected) Urine Cocaine Screen (NotDetected) U Marijuana (THC) Screen (NotDetected) 04/27/19 Range/Units 02:40 WBC (3.8-10.6) k/uL RBC (4.30-5.90) m/uL Hgb (13.0-17.5) gm/dL Hct (39.0-53.0) % MCV (80.0-100.0) fL MCH (25.0-35.0) pg MCHC (31.0-37.0) g/dL RDW (11.5-15.5) % Plt Count (150-450) k/uL Neutrophils % % Lymphocytes % % Monocytes % % Eosinophils % % Basophils % % Neutrophils # (1.3-7.7) k/uL Lymphocytes # (1.0-4.8) k/uL Monocytes # (0-1.0) k/uL Eosinophils # (0-0.7) k/uL Basophils # (0-0.2) k/uL Sodium (137-145) mmol/L Potassium (3.5-5.1) mmol/L Chloride (98-107) mmol/L Carbon Dioxide (22-30) mmol/L Anion Gap mmol/L BUN (9-20) mg/dL Creatinine (0.66-1.25) mg/dL Est GFR (CKD-EPI)AfAm (>60 ml/min/1.73 sqM) Est GFR (CKD-EPI)NonAf (>60 ml/min/1.73 sqM) Glucose (74-99) mg/dL Calcium (8.4-10.2) mg/dL Total Bilirubin (0.2-1.3) mg/dL AST (17-59) U/L ALT (4-49) U/L Alkaline Phosphatase (38-126) U/L Total Protein (6.3-8.2) g/dL Albumin (3.5-5.0) g/dL TSH (0.465-4.680) mIU/L Urine Opiates Screen Not Detected (NotDetected) Ur Oxycodone Screen Not Detected (NotDetected) Urine Methadone Screen Not Detected (NotDetected) Ur Propoxyphene Screen Not Detected (NotDetected) Ur Barbiturates Screen Not Detected (NotDetected) U Tricyclic Antidepress Not Detected (NotDetected) Ur Phencyclidine Scrn Detected H (NotDetected) Ur Amphetamines Screen Detected H (NotDetected) U Methamphetamines Scrn Detected H (NotDetected) U Benzodiazepines Scrn Detected H (NotDetected) Urine Cocaine Screen Not Detected (NotDetected) U Marijuana (THC) Screen Detected H (NotDetected) Disposition Clinical Impression: Acute anxiety, Acute psychosis Disposition: ADMITTED IP TO THIS [facility] Condition: Stable Is patient prescribed a controlled substance at d/c from ED?: No Decision to Admit Reason: Admit from EC
[2019-04-27 03:24] LABS: Amphetamine Screen,Urine Detected (NotDetected); Barbiturate Screen,Urine Not Detected (NotDetected); Benzodiazepines Screen,Urine Detected (NotDetected); Cocaine Screen,Urine Not Detected (NotDetected); Methadone Screen, Urine Not Detected (NotDetected); Opiate Screen,Urine Not Detected (NotDetected); Oxycodone Screen, Urine Not Detected (NotDetected); Phencyclidine Screen,Urine Detected (NotDetected); Tricyclic Antidepressant,Urine Not Detected (NotDetected); Urn Cannabinoid Scrn Detected (NotDetected)
[2019-04-27] MEDS ORDERED: MAGNESIUM HYDROXIDE 2,400 MG/10 ML CUP PO PRN (12:52)
[2019-04-27] MEDS ORDERED: ZIPRASIDONE 20 MG VIAL IM PRN (12:52)
[2019-04-27] MEDS ORDERED: MAG HYDROX/AL HYDROX/SIMETH 30 ML CUP PO PRN (12:52)
[2019-04-27] MEDS ORDERED: LORazepam 2 MG/ML INJ IM PRN (13:00)
[2019-04-27] MEDS: LORazepam 1 MG TAB PO PRN (15:07)
[2019-04-27] MEDS: NICOTINE 21MG/24HR PATCH TRANSDERM SCH (15:07)
--- NOTE | 2019-04-27 16:10 | P.HPIM ---
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 The patient reports that for the past month he has had extreme paranoia. Patient called 911, told the police that he wanted to kill himself because his family has pushed him away. Patient has also been having thoughts about being spied upon on the phone. He was found in the shed with a handmade weapon and methamphetamines. States that he has been of using meth. Denies use of any other illicit substances. In the past he was diagnosed with depression with psychotic features however he refuses to take any medication. He is not currently under any treatment. He denied having any other medical history, he complained of pain in his shoulder and left knee and asked for [place]. Otherwise no other medical history. No chest pain or shortness of breath, no fevers or chills. No nausea or vomiting. Review of Systems Complete review of system performed, pertinent positives per HPI, otherwise negative Past Medical History Past Medical History: Deep Vein Thrombosis (DVT) Additional Past Medical History / Comment(s): Sepsis secondary to a left foot infection from stepping on a nail that developed into gangrene of the second, third and fourth toes status post [id number] amputation, R elbow fracture. History of Any Multi-Drug Resistant Organisms: MRSA Date of last positivie culture/infection: 03/20/15 MDRO Source:: Left fourth finger Past Surgical History: Hernia Repair Additional Past Surgical History / Comment(s): Inguinal hernia repair as child (does not recall laterallity). Amputation to below left knee on 02/08/2016 Past Anesthesia/Blood Transfusion Reactions: No Reported Reaction Smoking Status: Current every day smoker - Past Family History Father Family Medical History: Cancer Additional Family Medical History / Comment(s): Father of throat cancer at the age of 68yrs. He was a smoker. Mother Family Medical History: Cancer Additional Family Medical History / Comment(s): Mother had lung cancer. She of this at the age of 50yrs. She was a smoker. Brother(s) Additional Family Medical History / Comment(s): He has one brother that is 40 years of age with no major medical problems. Sister(s) Additional Family Medical History / Comment(s): He has one sister that is 39 years of age and does not have any major medical problems. Patient has 2 sons that are currently living with their mother. Medications and Allergies Home Medications Medication Instructions Recorded Confirmed Type Acetaminophen Tab [Tylenol Tab] 650 mg PO Q6H PRN 02/28/18 04/27/19 History Naproxen Sodium [Aleve] 220 - 400 mg PO BID PRN 02/28/18 04/27/19 History Allergies Allergy/AdvReac Type Severity Reaction Status Date / Time No Known Allergies Allergy Verified 04/27/19 15:18 Physical Exam Vitals: Vital Signs Temp Pulse Pulse Resp BP BP Pulse Ox 04/27/19 15:09 97.6 F 78 20 122/80 100 04/27/19 02:50 97.4 F L 69 16 90/62 99 04/26/19 22:31 97.6 F 92 18 139/99 98 Intake and Output 04/27/19 04/27/19 04/27/19 06:59 14:59 22:59 Other: Weight 59.052 kg Constitutional: No acute distress, conversant, pleasant Eyes:Anicteric sclerae, moist conjunctiva, no lid-lag, PERRLA, ENMT: Oropharynx clear, no erythema, exudates Neck: Supple, FROM, no masses, or JVD, No carotid bruits, No thyromegaly Lungs: Clear to auscultation, Clear to percussion, Normal respiratory effort, no accessory muscle use Cardiovascular: Heart regular in rate and rhythm, No murmurs, gallops, or rubs, No peripheral edema Abdominal: Soft, Nontender, no guarding, rebound or rigidity, Normoactive bowel sounds, No hepatomegaly, No splenomegaly, No palpable mass Skin: Normal temperature, tone, texture, turgor, no induration, No subcutaneous nodules, No rash, lesions, No ulcers Extremities: Left BKA, No digital cyanosis, No clubbing, Pedal pulses intact and symmetrical, Radial pulses intact and symmetrical, No calf tenderness Psychiatric: Alert and oriented to person, place and time, appropriate affect, intact judgement Neuro: Muscles Strength 5/5 in all 4 extremities, Sensation to light touch grossly present throughout, Cranial nerves II-XII grossly intact, no focal sens ory deficits Results CBC & Chem 7: 04/26/19 23:48 04/26/19 23:48 Labs: Abnormal Lab Results - Last 24 Hours (Table) 04/26/19 04/27/19 Range/Units 23:48 02:40 Glucose 104 H (74-99) mg/dL Ur Phencyclidine Scrn Detected H (NotDetected) Ur Amphetamines Screen Detected H (NotDetected) U Methamphetamines Scrn Detected H (NotDetected) U Benzodiazepines Scrn Detected H (NotDetected) U Marijuana (THC) Screen Detected H (NotDetected) Assessment and Plan Plan: Severe depression with suicidal thoughts and paranoia Management per psychiatry Chronic pain Tylenol and Motrin when necessary Health maintenance CBC, CMP reviewed Urine tox screen reviewed Awaiting TSH and lipid panel
[2019-04-27] MEDS: IBUPROFEN 400 MG TAB PO PRN (18:34)
[2019-04-28] MEDS: NICOTINE 21MG/24HR PATCH TRANSDERM SCH (07:41)
[2019-04-28] MEDS: IBUPROFEN 400 MG TAB PO PRN ×2 (07:41→15:15)
[2019-04-28] MEDS: ACETAMINOPHEN TAB 325 MG TAB PO PRN ×2 (09:32→20:14)
[2019-04-28 12:47] VITALS: BMI 18.1
[2019-04-28] MEDS: LORazepam 1 MG TAB PO PRN ×2 (13:30→20:14)
--- NOTE | 2019-04-28 13:50 | P.HP ---
Psychiatric H&P - . H&P Date: 04/28/19 History & Physical: IDENTIFYING DATA: The patient is a 38-year-old single -Yemeni male who is well known to this unit from prior admission. He presented to unit involuntarily with a Petition completed by police communications operator. He has since agreed to a voluntary admission. HISTORY OF PRESENT ILLNESS: He was guarded about the circumstances that led to this hospitalization and spoke in generalities. According to the EPS note he called emergency services from a shed where he was hiding. The police found him hiding with a homemade improvised weapon. He admitted to using methamphetamine and stated that his family wants to kill him. He was "acting paranoid" and believed there was a conspiracy against him. He was angry at friends and family who were telling him that he is delusional and he told the EPS nurse that he came in hospital to "prove" that he is not delusional. He believes that everyone was trying to kill him including his sister, ex-girlfriend, [id number] and everyone else that he knows. He doesn't know why they would want to kill him but believes it has to do with methamphetamine and somebody who is in control and manipulating "everybody else." He believes that his friends and family were getting him methamphetamine because they wanted him use methamphetamine so that he would "look crazy". He complained that his girlfriend "kicked me out" of their home 3 weeks ago. He alleged that her actions were surprised to him. He talked about a "conspiracy against me" and involving family, friends and acquaintances. She assisted him by renting a [employer] [facility]. He believed that there were listening devices and video cameras hidden in the motel room. He left the motel room and moved in with a female friend. She ordered him to leave her home on the day of his admission. He admitted to smoking and insufflating methamphetamine for the last 6 months. During this time, he has lost approximately 15 pounds. He alleged that family and friends would give him methamphetamine. His UDS was positive for phencyclidine, amphetamines, methamphetamines, benzodiazepines and marijuana. He is BAT was 0.00. He denied feeling depressed or having thoughts of and suicide. He is angry and talked about having "homicidal ideation" against family and friends who "would not help me." He did not identify a specific person and would not talk about the nature of the homicidal ideation. He denied experiencing persistent anxiety that he was unable to control. He did not describe clear auditory or visual hallucinations. He denied experiencing thought insertion, thought broadcasting or thought control. PAST PSYCHIATRIC HISTORY: This is his 10th hospitalization to this unit. The last was in December 2017 when he was discharged with a diagnosis of bipolar 1 disorder, depressed, cocaine use disorder, cannabis use disorder, opiate use disorder and alcohol use disorder. His discharge medications include Invega, trazodone and Effexor. He alleged that he discontinued the medication after discharge and did not follow through with outpatient treatment. PAST MEDICAL HISTORY: History of DVT, left BKA amputation secondary to gangrene ALLERGIES: NO KNOWN DRUG ALLERGIES SUBSTANCE USE HISTORY: He alleged that he began using alcohol daily when he was 9 years old. He alleged that he has used most drugs including or opiate medications, marijuana, cocaine, crack cocaine, heroin and most recently methamphetamine. He has a high history of IV drug use. He attended "a couple" residential treatment programs and completed one at [place]. FAMILY PSYCHIATRIC/SUBSTANCE USE HISTORY: His brother and father have history of alcohol use disorder. He alleged his sister has a cocaine 1 use disorder. LEGAL HISTORY: He has legal charges pending and is currently on a "snf hold" status. According to the [facility] court doctor that he has had multiple legal charges including DUI, domestic violence and possession of controlled substance. SOCIAL HISTORY: He was born in intact family and raised in [facility]. He has 1 brother and 1 sister. He is unemployed and receives Social Security disability. He is single and has 2 children out of blood clot with whom he has no contact. He has no stable residence. He had an eighth grade education but earned his GED. He was not into . He denied history of physical, sexual or emotional abuse. MENTAL STATUS EXAM: He presented as an irritable and guarded 38-year-old -Y[place]i male who was sitting comfortably in a wheelchair. He was wearing the lower Lyman orthotic. He made eye contact and appeared to attend to the interview. He showed no abnormality of psychomotor activity. He is not restless, agitated or slowed. His speech was spontaneous with normal rate, rhythm and volume. His affect was irritable but appropriate. He denied suicidal ideation and wishes. He denied homicidal ideation. He did not express clear ideas reference express paranoid ideation and paranoid delusional beliefs. His thinking was concrete and associations were coherent and logical. He denied hallucinations and did not appear to be responding to internal stimuli. Global impression of intellect is average. He has insight or under standing on his substance use and the relationship between his methamphetamine use and his psychological distress. STRENGTHS: Stable income, relatively good health WEAKNESSES: Chronic substance use, lack of stable housing, recurrent interpersonal conflict IMPRESSION: Is a 38-year-old -Y[place]i male who has a history of substance use disorders. [facility] with paranoia and paranoid delusion of a complex of use of methamphetamine. As a result of his methamphetamine use he lost his housing and distanced himself from friends and family. He should be treated inpatient basis with combination of psychopharmacology and multimodal therapy. PRINCIPLE DIAGNOSIS: Methamphetamine use disorder severe, methamphetamine induced psychotic disorder, opiate use disorder severe, alcohol use disorder severe cocaine use disorder severe, cannabis use disorder RECOMMENDATION: Admit the psychiatric unit. Safety precautions. Consult medicine service to his physical exam and medical history. emergency worker completed initial psychosocial assessment and coordinate discharge and aftercare. He declined treatment with an antipsychotic. Discuss referral for residential substance abuse treatment. Encourage participation in therapeutic groups and activities. Evaluate clinical status response to treatment daily basis. Allergies Allergy/AdvReac Type Severity Reaction Status Date / Time No Known Allergies Allergy Verified 04/27/19 15:18 Vital Signs Temp 97.9 F 04/28/19 06:10 Pulse 79 04/28/19 06:10 Resp 16 04/28/19 06:10 BP 139/66 04/28/19 06:10 Pulse Ox 99 04/28/19 06:10 Intake & Output 04/27/19 04/28/19 04/28/19 18:59 06:59 18:59 Weight 59.052 kg Laboratory Last Values WBC 8.4 k/uL (3.8-10.6) 04/26/19 23:48 RBC 4.95 m/uL (4.30-5.90) 04/26/19 23:48 Hgb 14.8 gm/dL (13.0-17.5) 04/26/19 23:48 Hct 45.9 % (39.0-53.0) 04/26/19 23:48 MCV 92.7 fL (80.0-100.0) 04/26/19 23:48 MCH 29.9 pg (25.0-35.0) 04/26/19 23:48 MCHC 32.3 g/dL (31.0-37.0) 04/26/19 23:48 RDW 12.0 % (11.5-15.5) 04/26/19 23:48 Plt Count 299 k/uL (150-450) 04/26/19 23:48 Neutrophils % 55 % 04/26/19 23:48 Lymphocytes % 37 % 04/26/19 23:48 Monocytes % 4 % 04/26/19 23:48 Eosinophils % 2 % 04/26/19 23:48 Basophils % 0 % 04/26/19 23:48 Neutrophils # 4.6 k/uL (1.3-7.7) 04/26/19 23:48 Lymphocytes # 3.1 k/uL (1.0-4.8) 04/26/19 23:48 Monocytes # 0.3 k/uL (0-1.0) 04/26/19 23:48 Eosinophils # 0.2 k/uL (0-0.7) 04/26/19 23:48 Basophils # 0.0 k/uL (0-0.2) 04/26/19 23:48 Sodium 137 mmol/L (137-145) 04/26/19 23:48 Potassium 4.1 mmol/L (3.5-5.1) 04/26/19 23:48 Chloride 103 mmol/L (98-107) 04/26/19 23:48 Carbon Dioxide 26 mmol/L (22-30) 04/26/19 23:48 Anion Gap 8 mmol/L 04/26/19 23:48 BUN 11 mg/dL (9-20) 04/26/19 23:48 Creatinine 0.93 mg/dL (0.66-1.25) 04/26/19 23:48 Est GFR (CKD-EPI)AfAm >90 (>60 ml/min/1.73 sqM) 04/26/19 23:48 Est GFR (CKD-EPI)NonAf >90 (>60 ml/min/1.73 sqM) 04/26/19 23:48 Glucose 104 mg/dL (74-99) H 04/26/19 23:48 Calcium 9.5 mg/dL (8.4-10.2) 04/26/19 23:48 Total Bilirubin 0.2 mg/dL (0.2-1.3) 04/26/19 23:48 AST 45 U/L (17-59) 04/26/19 23:48 ALT 41 U/L (4-49) 04/26/19 23:48 Alkaline Phosphatase 62 U/L (38-126) 04/26/19 23:48 Total Protein 6.8 g/dL (6.3-8.2) 04/26/19 23:48 Albumin 4.3 g/dL (3.5-5.0) 04/26/19 23:48 Urine Opiates Screen Not Detected (NotDetected) 04/27/19 02:40 Ur Oxycodone Screen Not Detected (NotDetected) 04/27/19 02:40 Urine Methadone Screen Not Detected (NotDetected) 04/27/19 02:40 Ur Propoxyphene Screen Not Detected (NotDetected) 04/27/19 02:40 Ur Barbiturates Screen Not Detected (NotDetected) 04/27/19 02:40 U Tricyclic Antidepress Not Detected (NotDetected) 04/27/19 02:40 Ur Phencyclidine Scrn Detected (NotDetected) H 04/27/19 02:40 Ur Amphetamines Screen Detected (NotDetected) H 04/27/19 02:40 U Methamphetamines Scrn Detected (NotDetected) H 04/27/19 02:40 U Benzodiazepines Scrn Detected (NotDetected) H 04/27/19 02:40 Urine Cocaine Screen Not Detected (NotDetected) 04/27/19 02:40 U Marijuana (THC) Screen Detected (NotDetected) H 04/27/19 02:40 04/28/19 09:55 04/28/19 10:49 04/28/19 13:41
[2019-04-29] MEDS: NICOTINE 21MG/24HR PATCH TRANSDERM SCH (09:19)
[2019-04-29] MEDS: IBUPROFEN 400 MG TAB PO PRN ×2 (09:20→19:53)
[2019-04-29] MEDS: LORazepam 1 MG TAB PO PRN ×2 (09:20→19:53)
[2019-04-29] MEDS: ACETAMINOPHEN TAB 325 MG TAB PO PRN (11:55)
--- NOTE | 2019-04-29 12:57 | P.PN ---
Progress Note - Text Progress Note Date: 04/29/19 Interval history: Patient was seen sitting in his wheelchair across from the nurse's desk and was directable and agreeable to speak with parts data writer. Patient claims that he has been paranoid and "delusional" at home and states that he has some serious "trust issues" with the staff on the unit. Patient appears to be somewhat irritable and expressed that he has anger problems that he liked have treated. He states that he has had difficulties taking medications in the past and states that the past 2 weeks he has not been doing well. He states that his mood is currently depressed. He states that he slept throughout the night. He claims that he has been thinking about what medications to take and seemed to be somewhat hesitant in taking Risperdal however explain that he has had good benefit from Invega Sustenna injection in the past and would be open to that. At this time patient denies any suicidal or homicidal ideations intent or plan. Denies any Auditory or visual hallucinations. Mental status exam: General Appearance: Patient appears to be thin and in a wheelchair stated age is alert, directable, and uncooperative Behavior: No agitated behavior. Patient is calm and directable irritable tone. Speech: Patient's speech is fluent and nonpressured. Mood/Affect: Mood is depressed, affect is congruent and constricted. Suicidality/Homicidality: Patient denies having any suicidal or homicidal ideation intent or plan. Perceptions: Patient denies any auditory or visual hallucinations. Though content/process: And significant paranoia, multiple delusions loosely formed. Goal oriented. Memory and concentration: AOX3, grossly intact for the purposes of this session Judgment and insight: Poor Assessment/Plan: Continue with current diagnosis. Patient continues to meet criteria for inpatient psychiatric admission for symptom stabilization and safety. Patient was more agreeable to take Risperdal and states that he would like to eventually be put back on Invega Sustenna as he has difficulties remembering to take medications. Agreeable to start Risperdal 1 mg daily at bedtime for psychosis. Monitor for medication compliance and for any psychotropic medication side effects. Will continue to monitor ongoing response to treatment. Encouraged participation in milieu.
[2019-04-29] MEDS: GABAPENTIN 100 MG CAP PO SCH ×2 (16:37→21:06)
[2019-04-29] MEDS: risperiDONE ODT 1 MG TAB PO SCH (21:06)
[2019-04-30] MEDS: IBUPROFEN 400 MG TAB PO PRN ×3 (07:53→20:37)
[2019-04-30] MEDS: GABAPENTIN 100 MG CAP PO SCH ×3 (07:53→20:35)
[2019-04-30] MEDS: NICOTINE 21MG/24HR PATCH TRANSDERM SCH (07:53)
[2019-04-30] MEDS: LORazepam 1 MG TAB PO PRN ×2 (07:53→16:00)
[2019-04-30] MEDS: ACETAMINOPHEN TAB 325 MG TAB PO PRN (09:48)
--- NOTE | 2019-04-30 10:30 | P.PN ---
Progress Note - Text Progress Note Date: 04/30/19 Interval history: Patient was seen sitting in his wheelchair across from the nurse's desk and was directable and agreeable to speak with short story writer. Patient appeared to have a mildly improved affect is morning and states that "things are going my way now" and when asked to describe more about he states that he finally got the street to a dietitian and is going to be drinking ensure with his meals and also he feels that the staff are treating him better. He did state that he had difficulties with sleep last night and was hearing some voices and when asked to describe her with the voices he states "all they talked about his stuff with a V". Patient claims that he has been paranoid and continues to have "trust issues" with people on the unit. Patient appears to be less irritable today. Patient is continuing to refuse his medications however was stating that he will take the Risperdal tonight. At this time patient denies any suicidal or homicidal ideations intent or plan. Denies any Auditory or visual hallucinations. Mental status exam: General Appearance: Patient appears to be thin and in a wheelchair stated age is alert, directable, and more cooperative today. Behavior: No agitated behavior. Patient is calm and directable. Less irritable. Speech: Patient's speech is fluent and nonpressured. Mood/Affect: Mood is "okay", affect is congruent and constricted. Suicidality/Homicidality: Patient denies having any suicidal or homicidal ideation intent or plan. Perceptions: Patient denies any auditory or visual hallucinations. Though content/process: And significant paranoia, multiple delusions loosely formed. Goal oriented. Memory and concentration: AOX3, grossly intact for the purposes of this session Judgment and insight: Poor, improving mildly Assessment/Plan: Continue with current diagnosis. Patient continues to meet criteria for inpatient psychiatric admission for symptom stabilization and safety. Patient was more agreeable to take Risperdal and states that he would like to eventually be put back on Invega Sustenna as he has difficulties remembering to take medications. Continue with Risperdal 1 mg daily at bedtime for psychosis. Monitor for medication compliance and for any psychotropic medication side effects. Will continue to monitor ongoing response to treatment. Encouraged participation in milieu.
[2019-04-30] MEDS: risperiDONE ODT 1 MG TAB PO SCH (20:36)
[2019-05-01] MEDS: GABAPENTIN 100 MG CAP PO SCH ×3 (07:52→21:50)
[2019-05-01] MEDS: LORazepam 1 MG TAB PO PRN ×2 (07:52→16:17)
[2019-05-01] MEDS: IBUPROFEN 400 MG TAB PO PRN ×2 (07:52→16:17)
[2019-05-01] MEDS: NICOTINE 21MG/24HR PATCH TRANSDERM SCH (07:52)
[2019-05-01] MEDS: ARIPiprazole 2 MG TAB PO SCH (10:39)
--- NOTE | 2019-05-01 14:27 | P.PN ---
Subjective Progress Note Date: 05/01/19 Principal diagnosis: Methamphetamine induced psychotic disorder (resolved), methamphetamine use disorder severe, opiate use disorder severe, alcohol use disorder severe, cocaine use disorder severe, cannabis use disorder, antisocial personality disorder I reviewed the medical record, interviewed the patient and discuss his treatment and treatment plan during team meeting. He is angry with his "family". Apparently his sister, girlfriend or nephew did not bring personal items to the hospital as she requested. Over the weekend, he agreed to a trial of a second generation antipsychotic. Today he came to my office with information on both risperidone and Abilify. He wanted to talk about the relative benefits of these medications. Eventually requested to discontinue risperidone and start Abilify abuse is concerned about the reported sexual side effects with risperidone. He denied having thoughts of or suicide. He denied experiencing auditory, visual or olfactory hallucinations. He denied feeling paranoid or suspicious. plaster and stucco worker received notice from the courts regarding his legal charges. We are to contact the police when he is discharged. Objective - Vital Signs Vital signs: Vital Signs Temp 97.9 F 05/01/19 07:07 Pulse 64 05/01/19 07:07 Resp 18 05/01/19 07:07 BP 119/75 05/01/19 07:07 Pulse Ox 100 05/01/19 07:07 Intake & Output 04/30/19 05/01/19 05/01/19 18:59 06:59 18:59 Weight 59.052 kg - Exam Niki was thin and neatly groomed. He is using a wheelchair. He had his prosthesis in place. He was angry but directable. His speech was spontaneous with normal rate, rhythm and volume. He denied suicidal ideation, wishes or homicidal ideation. He denied feeling hopeless, helpless or worthless. He ruminated about his family failing to keep promised to bring him his personal belongings. He did not express ideas reference, paranoid ideation or delusions. His thinking was abstract and associations were Joe coherent and logical. He denied hallucinations did not appear to be responding to internal stimuli. - Labs CBC & Chem 7: 04/26/19 23:48 04/26/19 23:48 Assessment and Plan Assessment: The paranoia has resolved since admission. I suspect the paranoia, disorganization and agitation while related to his methamphetamine use. Plan: Discontinue risperidone, begin Abilify 1 mg daily and titrated according to clinical response and tolerance. Encourage participation in therapeutic groups and activities. Plan for discharge on 05/02/2019.
[2019-05-02 06:40] VITALS: BP 109/62; PULSE 67; RESP 16; TEMP 98.2
[2019-05-02] MEDS: NICOTINE 21MG/24HR PATCH TRANSDERM SCH (09:01)
[2019-05-02] MEDS: GABAPENTIN 100 MG CAP PO SCH (09:01)
[2019-05-02] MEDS: ARIPiprazole 2 MG TAB PO SCH (09:01)
[2019-05-02] MEDS: LORazepam 1 MG TAB PO PRN (09:02)
[2019-05-02] MEDS: IBUPROFEN 400 MG TAB PO PRN (10:28)
--- NOTE | 2019-05-02 15:04 | P.DS ---
Providers Date of admission: 04/27/19 12:46 Attending physician: Lokesh Wang MD Consults: 04/27/19 12:52 Consult Physician Routine Consulting Provider: [facility] Consult Reason/Comments: H & P Do you want consulting provider notified?: Yes Primary care physician: Stated None - Discharge Diagnosis(es) (1) Substance-induced psychotic disorder with delusions Status: Resolved Priority: High (2) Methamphetamine use disorder, severe Status: Chronic Priority: High (3) Opioid use disorder, severe, in sustained remission Status: Chronic Priority: Low (4) Cocaine use disorder, severe, dependence Status: Chronic Priority: Medium (5) Alcohol use disorder, severe, dependence Status: Chronic Priority: Medium (6) Cannabis use disorder, moderate, dependence Status: Chronic Priority: Medium (7) Tobacco use Status: Chronic Priority: Medium (8) Antisocial personality disorder Status: Chronic Priority: Medium Hospital Course: He was guarded about the circumstances that led to this hospitalization and spoke in generalities. According to the EPS note he called emergency services from a shed where he was hiding. The police found him hiding with a homemade improvised weapon. He admitted to using methamphetamine and stated that his family wants to kill him. He was "acting paranoid" and believed there was a conspiracy against him. He was angry at friends and family who were telling him that he is delusional and he told the EPS nurse that he came in hospital to "prove" that he is not delusional. He believes that everyone was trying to kill him including his sister, ex-girlfriend, [id number] and everyone else that he knows. He doesn't know why they would want to kill him but believes it has to do with methamphetamine and somebody who is in control and manipulating "everybody else." He believes that his friends and family were getting him methamphetamine because they wanted him use methamphetamine so that he would "look crazy". He complained that his girlfriend "kicked me out" of their home 3 weeks ago. He alleged that her actions were surprised to him. He talked about a "conspiracy against me" and involving family, friends and acquaintances. She assisted him by renting a motel room. He believed that there were listening devices and video cameras hidden in the motel room. He left the motel room and moved in with a female friend. She ordered him to leave her home on the day of his admission. He admitted to smoking and insufflating methamphetamine for the last 6 months. During this time, he has lost approximately 15 pounds. He alleged that family and friends would give him methamphetamine. His UDS was positive for phencyclidine, amphetamines, methamphetamines, benzodiazepines and marijuana. He is BAT was 0.00. He denied feeling depressed or having thoughts of and suicide. He is angry and talked about having "homicidal ideation" against family and friends who "would not help me." He did not identify a specific person and would not talk about the nature of the homicidal ideation. He denied experiencing persistent anxiety that he was unable to control. He did not describe clear auditory or visual hallucinations. He denied experiencing thought insertion, thought broadcasting or thought control. This is his 10th hospitalization to this unit. The last was in December 2017 when he was discharged with a diagnosis of bipolar 1 disorder, depressed, cocaine use disorder, cannabis use disorder, opiate use disorder and alcohol use disorder. His discharge medications include Invega, trazodone and Effexor. He alleged that he discontinued the medication after discharge and did not follow through with outpatient treatment. He alleged that he began using alcohol daily when he was 9 years old. He alleged that he has used most drugs including or opiate medications, marijuana, cocaine, crack cocaine, heroin and most recently methamphetamine. He has a high history of IV drug use. He attended "a couple" residential treatment programs and completed one at [place]. We admitted him to the psychiatric unit under care of this television writer. Provided a comprehensive biopsychosocial assessment. The retail consultant compound coating machine offbearer completed initial physical exam and medical history and diagnosed chronic pain. He initially declined treatment with an antipsychotic. After speaking with the weekend psychiatrist he agreed to a trial of risperidone then changed his mind after reading sexual side effects as a possible adverse effect to risperidone. He to be done prescribed Abilify 1 mg daily.appendectomy his paranoia and agitation rapidly resolved with abstinence from methamphetamine. He posed no management problem and had no episodes of behavioral dyscontrol. Spent much of his time in his wheelchair at the intersection of the hallways. Although he was able to walk unassisted. The school social worker confirmed that he is a [facility] hold. We notified the police department who had 3 operations waiting to estimate discharge. at the time of discharge she presented as a thin casually groomed 14-year-old -[place] male who looked younger than stated age. He had a leftt BKA and used prosthesis. His speech was spontaneous with normal rate, rhythm and volume. His affect was bright, stable and appropriate. He denied suicidal ideation or wishes. He denied homicidal ideation. He denied feeling hopeless, helpless or worthless. He did not express ideas reference, paranoid ideation or delusions. His thinking was abstract and associations were coherent and logical. He denied hallucinations and did not appear to be responding to internal stimuli. He continued to question whether his use of methamphetamine was responsible for his paranoia and delusional beliefs. Patient Condition at Discharge: Stable Plan - Discharge Summary Discharge Rx Participant: No New Discharge Prescriptions: New ARIPiprazole [Abilify] 1 mg PO DAILY #30 tab Ibuprofen [Motrin] 400 mg PO Q6HR PRN tab PRN Reason: Mild Pain Gabapentin [Neurontin] 200 mg PO TID #120 cap Continue Acetaminophen Tab [Tylenol] 650 mg PO Q6H PRN PRN Reason: Pain Discontinued Naproxen Sodium [Aleve] 220 - 400 mg PO BID PRN PRN Reason: Pain Discharge Medication List Acetaminophen Tab [Tylenol] 650 mg PO Q6H PRN 02/28/18 [History] ARIPiprazole [Abilify] 1 mg PO DAILY #30 tab 05/02/19 [Rx] Gabapentin [Neurontin] 200 mg PO TID #120 cap 05/02/19 [Rx] Ibuprofen [Motrin] 400 mg PO Q6HR PRN tab 05/02/19 [Rx] Follow up Appointment(s)/Referral(s): [facility], Psychiatry [Other] - 1 Week (Don ) [facility] [NON-STAFF] - 1 Week Patient Instructions/Handouts: How to Stop Smoking (DC), Bipolar Disorder (DC), Cannabis Abuse (DC), Methamphetamine Abuse (DC) Activity/Diet/Wound Care/Special Instructions: Activity and diet as tolerated. Avoid the use of street drugs and alcohol. Take all medications as prescribed. When you are in need of refills on your medications please contact your medical provider and/or outpatient psychiatrist to have this done. Please go to scheduled outpatient appointment for aftercare treatment. If symptoms return or become worse, call the crisis line at and/or go to the nearest emergency room for evaluation. Discharge Disposition: HOME SELF-CARE
== END 2019-05-02 13:18 | disposition home or self-care (01) | DRG 885 ==
LOC: EC 22:30 → 3MHU 04-27 12:46
PROVIDERS: ADMIT Psychiatry & Neurology Psychiatry; ATTEND Psychiatry & Neurology Psychiatry
DX: F32.3 Major depressive disorder, single episode, severe with psychotic features (principal); F15.250 Other stimulant dependence with stimulant-induced psychotic disorder with delusions; R45.851 Suicidal ideations; F14.20 Cocaine dependence, uncomplicated; R45.850 Homicidal ideations; F31.30 Bipolar disorder, current episode depressed, mild or moderate severity, unspecified; F11.21 Opioid dependence, in remission; F12.20 Cannabis dependence, uncomplicated; F10.20 Alcohol dependence, uncomplicated; F60.2 Antisocial personality disorder; F41.9 Anxiety disorder, unspecified; G89.29 Other chronic pain; F17.210 Nicotine dependence, cigarettes, uncomplicated; Z71.6 Tobacco abuse counseling; Z79.899 Other long term (current) drug therapy; Z89.512 Acquired absence of left leg below knee; Z86.718 Personal history of other venous thrombosis and embolism; Z86.19 Personal history of other infectious and parasitic diseases; Z86.14 Personal history of Methicillin resistant Staphylococcus aureus infection; Z98.890 Other specified postprocedural states; Z80.8 Family history of malignant neoplasm of other organs or systems; Z81.2 Family history of tobacco abuse and dependence; Z80.1 Family history of malignant neoplasm of trachea, bronchus and lung
CPT/HCPCS: 36415; 80053; 80306; 82075; 84443; 85025; 99285

== ENCOUNTER 2019-10-06 15:26 | Inpatient (IN) | payer MEDICAID, OTHER ==
[2019-10-06] MEDS ORDERED: LORazepam 1 MG TAB PO STA (15:50)
--- NOTE | 2019-10-06 15:57 | ED ---
General Adult HPI - General Chief complaint: Psychiatric Symptoms Stated complaint: mental health Time Seen by Provider: 10/06/19 15:30 Source: patient, RN notes reviewed, old records reviewed Mode of arrival: ambulatory Limitations: no limitations - History of Present Illness Initial comments: 39-year-old male presenting for psychiatric evaluation. Patient states he is uncertain what is real and what is in his mind. He's having hallucinations. He's admitted to illegal drugs. States he had a small amount of alcohol today. He is agitated and paranoid during my initial evaluation. He does plan to commit suicide and is admitting suicidal thoughts. - Related Data Home Medications Medication Instructions Recorded Confirmed Acetaminophen Tab [Tylenol] 650 mg PO Q6H PRN 02/28/18 04/27/19 Previous Rx's Medication Instructions Recorded ARIPiprazole [Abilify] 1 mg PO DAILY #30 tab 05/02/19 Gabapentin [Neurontin] 200 mg PO TID #120 cap 05/02/19 Ibuprofen [Motrin] 400 mg PO Q6HR PRN tab 05/02/19 Allergies Allergy/AdvReac Type Severity Reaction Status Date / Time No Known Allergies Allergy Verified 10/06/19 15:33 Review of Systems ROS Statement: Those systems with pertinent positive or pertinent negative responses have been documented in the HPI. ROS Other: All systems not noted in ROS Statement are negative. Past Medical History Past Medical History: Deep Vein Thrombosis (DVT) Additional Past Medical History / Comment(s): Sepsis secondary to a left foot infection from stepping on a nail that developed into gangrene of the second, third and fourth toes status post [id number] amputation, R elbow fracture. History of Any Multi-Drug Resistant Organisms: MRSA Date of last positivie culture/infection: 03/20/15 MDRO Source:: Left fourth finger Past Surgical History: Hernia Repair Additional Past Surgical History / Comment(s): Inguinal hernia repair as child (does not recall laterallity). Amputation to below left knee on 02/08/2016 Past Anesthesia/Blood Transfusion Reactions: No Reported Reaction Past Psychological History: Anxiety, Bipolar, Depression Smoking Status: Current every day smoker Past Alcohol Use History: Occasional Past Drug Use History: Cocaine, Marijuana, Methamphetamine - Past Family History Father Family Medical History: Cancer Additional Family Medical History / Comment(s): Father of throat cancer at the age of 68yrs. He was a smoker. Mother Family Medical History: Cancer Additional Family Medical History / Comment(s): Mother had lung cancer. She of this at the age of 50yrs. She was a smoker. Brother(s) Family Medical History: No Reported History Additional Family Medical History / Comment(s): He has one brother that is 40 years of age with no major medical problems. Sister(s) Family Medical History: No Reported History Additional Family Medical History / Comment(s): He has one sister that is 39 years of age and does not have any major medical problems. Patient has 2 sons that are currently living with their mother. General Exam Limitations: no limitations General appearance: alert, anxious Head exam: Present: atraumatic, normocephalic Eye exam: Present: normal appearance, PERRL ENT exam: Present: normal exam Neck exam: Present: normal inspection. Absent: tenderness, meningismus Respiratory exam: Absent: respiratory distress, wheezes Cardiovascular Exam: Present: regular rate, normal rhythm GI/Abdominal exam: Present: soft. Absent: distended, tenderness, guarding Extremities exam: Present: other (Left AKA) Neurological exam: Present: alert Psychiatric exam: Present: agitated, anxious, suicidal ideation Skin exam: Present: warm, dry, intact Course Vital Signs 10/06/19 15:30 Temperature 98.4 F Pulse Rate 108 H Respiratory 20 Rate Blood Pressure 123/76 O2 Sat by Pulse 99 Oximetry - Reevaluation(s) Reevaluation #1: 10/06/19 15:56 Patient medically cleared for EPS evaluation. Medical Decision Making - Medical Decision Making Patient evaluated by EPS and will be admitted to this institution for further psychiatric evaluation and treatment. Disposition Clinical Impression: Acute psychosis, Suicidal ideation, Antisocial personality disorder Disposition: ADMITTED IP TO THIS [facility] Condition: Stable Is patient prescribed a controlled substance at d/c from ED?: No Referrals: None,Stated [Primary Care Provider] - 1-2 days Decision to Admit Reason: Admit from EC Decision Date: 10/06/19 Decision Time: 17:46
[2019-10-06] MEDS ORDERED: NICOTINE 21MG/24HR PATCH TRANSDERM STA (16:35)
[2019-10-06] MEDS ORDERED: MAGNESIUM HYDROXIDE 2,400 MG/10 ML CUP PO PRN (18:06)
[2019-10-06] MEDS ORDERED: ZIPRASIDONE 20 MG VIAL IM PRN (18:06)
[2019-10-06] MEDS ORDERED: MAG HYDROX/AL HYDROX/SIMETH 30 ML CUP PO PRN (18:06)
[2019-10-06] MEDS ORDERED: LORazepam 2 MG/ML INJ IM STA (18:10)
[2019-10-06 18:55] LABS: Amphetamine Screen,Urine Detected (NotDetected); Barbiturate Screen,Urine Not Detected (NotDetected); Benzodiazepines Screen,Urine Not Detected (NotDetected); Cocaine Screen,Urine Not Detected (NotDetected); Methadone Screen, Urine Not Detected (NotDetected); Opiate Screen,Urine Not Detected (NotDetected); Oxycodone Screen, Urine Not Detected (NotDetected); Phencyclidine Screen,Urine Not Detected (NotDetected); Tricyclic Antidepressant,Urine Not Detected (NotDetected); Urn Cannabinoid Scrn Detected (NotDetected)
[2019-10-06] MEDS: GABAPENTIN 300 MG CAP PO SCH (20:50)
--- NOTE | 2019-10-07 01:06 | P.MDCNMH ---
History of Present Illness H&P Date: 10/07/19 Chief Complaint: paranoia and hallucination s 39-year-old male denies any significant past medical history Patient came in seeking help he admits to polysubstance abuse however he hasn't been having hallucinations and not tell reality he feels that his mind is all messed up and feeling very paranoid. He denied any suicidal or homicidal ideation at this time. Otherwise denies any chest pain or trouble breathing denies any nausea vomiting fevers chills or abdominal pain He reported some discomfort in his left knee and stiffness, he wears left leg prosthetic for a below-knee amputation Review of Systems Pertinent positives as noted in HPI. All other systems were reviewed and are negative Past Medical History Past Medical History: Deep Vein Thrombosis (DVT) Additional Past Medical History / Comment(s): Sepsis secondary to a left foot infection from stepping on a nail that developed into gangrene of the second, third and fourth toes status post [id number] amputation, R elbow fracture. History of Any Multi-Drug Resistant Organisms: MRSA Date of last positivie culture/infection: 03/20/15 MDRO Source:: Left fourth finger Past Surgical History: Hernia Repair Additional Past Surgical History / Comment(s): Inguinal hernia repair as child ( does not recall laterallity). Amputation to below left knee on 02/08/2016 Past Anesthesia/Blood Transfusion Reactions: No Reported Reaction Smoking Status: Current every day smoker - Past Family History Father Family Medical History: Cancer Additional Family Medical History / Comment(s): Father of throat cancer at the age of 68yrs. He was a smoker. Mother Family Medical History: Cancer Additional Family Medical History / Comment(s): Mother had lung cancer. She of this at the age of 50yrs. She was a smoker. Brother(s) Family Medical History: No Reported History Additional Family Medical History / Comment(s): He has one brother that is 40 years of age with no major medical problems. Sister(s) Family Medical History: No Reported History Additional Family Medical History / Comment(s): He has one sister that is 39 years of age and does not have any major medical problems. Patient has 2 sons that are currently living with their mother. Medications and Allergies Home Medications Medication Instructions Recorded Confirmed Type Ibuprofen [Motrin Ib] 800 mg PO DAILY PRN 10/06/19 10/06/19 History Allergies Allergy/AdvReac Type Severity Reaction Status Date / Time No Known Allergies Allergy Verified 10/06/19 18:08 Physical Exam Vitals: Vital Signs Temp Pulse Pulse Resp BP BP Pulse Ox 10/06/19 18:58 97.6 F 111 H 20 121/72 99 10/06/19 15:30 98.4 F 108 H 20 123/76 99 Intake and Output 10/06/19 10/06/19 10/07/19 14:59 22:59 06:59 Other: Weight 63.9 kg Constitutional: No acute distress, conversant, pleasant Eyes: Anicteric sclerae, moist conjunctiva, Pupils equal round reactive to light ENMT: NC/AT Oropharynx clear, no erythema, or exudates Neck: Supple, FROM, no masses, or JVD No carotid bruits No thyromegaly Lungs: Clear to auscultation Clear to percussion Normal respiratory effort, no accessory muscle use Cardiovascular: Heart regular in rate and rhythm, No murmurs, gallops, or rubs No peripheral edema Abdominal: Soft Nontender, no guarding, rebound or rigidity Abdomen moving with respiration Normoactive bowel sounds No hepatomegaly, No splenomegaly No palpable mass No abdominal wall hernia noted Skin: Normal temperature, tone, texture, turgor No induration No subcutaneous nodules No rash, lesions No ulcers Extremities: Palpable crepitation upon moving his knee joint suggestive of severe osteoarthritis, left below knee amputation stump looks healthy no bl isters no ulcers No digital cyanosis No clubbing Pedal pulses intact right foot Radial pulses intact and symmetrical No calf tenderness Psychiatric: Alert and oriented to person, place and time Appropriate affect fair judgement Neuro Muscles Strength 5/5 in all 4 extremities Sensation to light touch grossly present throughout Cranial nerves II-XII grossly intact No focal sensory deficits Lymphatics: no palpable cervical or supraclavicular , or inguinal lymph nodes Cranial Nerve Examination - Cranial Nerves Cranial Nerve II- Optic: Intact Cranial Nerve III- Oculomotor: Intact Cranial Nerve IV- Trochlear: Intact Cranial Nerve V- Trigeminal: Intact Cranial Nerve - Abducens: Intact Cranial Nerve VII- Facial: Intact Cranial Nerve VIII- Auditory: Intact Cranial Nerve IX- Glossopharyngeal: Intact Cranial Nerve X- Vagus: Intact Cranial Nerve XI- Accessory: Intact Cranial Nerve XII- Hypoglossal: Intact Results Labs: Abnormal Lab Results - Last 24 Hours (Table) 10/06/19 Range/Units 16:33 Ur Amphetamines Screen Detected H (NotDetected) U Methamphetamines Scrn Detected H (NotDetected) U Marijuana (THC) Screen Detected H (NotDetected) Assessment and Plan Assessment: Osteoarthritis of the left knee Continue with Tylenol as needed Paranoia Visual and auditory hallucinations Management per psych Follow-up labs Thank you for allowing us to participate in the care of this patient. We will follow peripherally. Do not hesitate to contact us with questions. Someone can be reached from the [facility] hospitalist group at all hours of the day at [phone].
[2019-10-07 03:10] LABS: Appearance,Urine Turbid (Clear); Bilirubin,Urine Negative (Negative); Blood,Urine Negative (Negative); Calcium Oxalate Crystals,Urine Few /hpf; Color,Urine Yellow; Glucose,Urine (UA) Negative (Negative); Hyaline Casts,Urine 4 /lpf (0-2); Ketones,Urine Trace (Negative); Leukocyte Esterase,Urine Negative (Negative); Mucus,Urine Many /hpf; Nitrite,Urine Negative (Negative); Protein,Urine Trace (Negative); Specific Gravity,Urine 1.037 (1.001-1.035)
[2019-10-07 08:23] LABS: Basophils # (A) 0.1 k/uL (0-0.2); Basophils % (A) 1 %; Eosinophils # (A) 0.3 k/uL (0-0.7); Eosinophils % (A) 3 %; HCT 48.1 % (39.0-53.0); HGB 15.3 gm/dL (13.0-17.5); Lymphocytes # (A) 3.7 k/uL (1.0-4.8); Lymphocytes % (A) 35 %; MCHC 31.9 g/dL (31.0-37.0); MCV 97.4 fL (80.0-100.0); Mean Platelet Volume 7.2; Monocytes # (A) 0.5 k/uL (0-1.0); Monocytes % (A) 4 %; Neutrophils # (A) 5.7 k/uL (1.3-7.7); Neutrophils % (A) 54 %; Platelet Count 376 k/uL (150-450); RBC 4.94 m/uL (4.30-5.90); RDW 12.5 % (11.5-15.5); WBC 10.4 k/uL (3.8-10.6)
[2019-10-07 08:31] LABS: ALT 38 U/L (4-49); AST 37 U/L (17-59); African American GFR (CKD) >90 (>60 ml/min/1.73 sqM); Alkaline Phosphatase 47 U/L (38-126); Anion Gap 4 mmol/L; Blood Urea Nitrogen 18 mg/dL (9-20); Calcium 9.3 mg/dL (8.4-10.2); Carbon Dioxide 28 mmol/L (22-30); Chloride 105 mmol/L (98-107); Cholesterol 133 mg/dL (<200); Glucose 88 mg/dL (74-99); HDL Cholesterol 50 mg/dL (40-60); LDL Cholesterol,Calculated 74 mg/dL (0-99); Non-African American GFR(CKD) >90 (>60 ml/min/1.73 sqM); Potassium 4.5 mmol/L (3.5-5.1); Sodium 137 mmol/L (137-145); Total Bilirubin 0.4 mg/dL (0.2-1.3); Total Protein 6.2 g/dL (6.3-8.2); Triglycerides 47 mg/dL (<150)
[2019-10-07] MEDS: NICOTINE 21MG/24HR PATCH TRANSDERM SCH (09:48)
[2019-10-07] MEDS: GABAPENTIN 300 MG CAP PO SCH ×4 (09:49→22:56)
[2019-10-07] MEDS: LORazepam 1 MG TAB PO PRN ×2 (09:49→22:56)
[2019-10-07] MEDS: ACETAMINOPHEN TAB 325 MG TAB PO PRN ×2 (09:49→18:09)
--- NOTE | 2019-10-07 10:06 | P.HP ---
Psychiatric H&P - . H&P Date: 10/07/19 History & Physical: Allergies Allergy/AdvReac Type Severity Reaction Status Date / Time No Known Allergies Allergy Verified 10/06/19 18:08 Vital Signs Temp 97.8 F 10/07/19 06:29 Pulse 62 10/07/19 06:29 Resp 16 10/07/19 06:29 BP 108/68 10/07/19 06:29 Pulse Ox 99 10/06/19 18:58 Intake & Output 10/06/19 10/07/19 10/07/19 18:59 06:59 18:59 Weight 68.039 kg 63.9 kg Laboratory Last Values WBC 10.4 k/uL (3.8-10.6) 10/07/19 08:02 RBC 4.94 m/uL (4.30-5.90) 10/07/19 08:02 Hgb 15.3 gm/dL (13.0-17.5) 10/07/19 08:02 Hct 48.1 % (39.0-53.0) 10/07/19 08:02 MCV 97.4 fL (80.0-100.0) 10/07/19 08:02 MCH 31.0 pg (25.0-35.0) 10/07/19 08:02 MCHC 31.9 g/dL (31.0-37.0) 10/07/19 08:02 RDW 12.5 % (11.5-15.5) 10/07/19 08:02 Plt Count 376 k/uL (150-450) 10/07/19 08:02 Neutrophils % 54 % 10/07/19 08:02 Lymphocytes % 35 % 10/07/19 08:02 Monocytes % 4 % 10/07/19 08:02 Eosinophils % 3 % 10/07/19 08:02 Basophils % 1 % 10/07/19 08:02 Neutrophils # 5.7 k/uL (1.3-7.7) 10/07/19 08:02 Lymphocytes # 3.7 k/uL (1.0-4.8) 10/07/19 08:02 Monocytes # 0.5 k/uL (0-1.0) 10/07/19 08:02 Eosinophils # 0.3 k/uL (0-0.7) 10/07/19 08:02 Basophils # 0.1 k/uL (0-0.2) 10/07/19 08:02 Sodium 137 mmol/L (137-145) 10/07/19 08:02 Potassium 4.5 mmol/L (3.5-5.1) 10/07/19 08:02 Chloride 105 mmol/L (98-107) 10/07/19 08:02 Carbon Dioxide 28 mmol/L (22-30) 10/07/19 08:02 Anion Gap 4 mmol/L 10/07/19 08:02 BUN 18 mg/dL (9-20) 10/07/19 08:02 Creatinine 0.97 mg/dL (0.66-1.25) 10/07/19 08:02 Est GFR (CKD-EPI)AfAm >90 (>60 ml/min/1.73 sqM) 10/07/19 08:02 Est GFR (CKD-EPI)NonAf >90 (>60 ml/min/1.73 sqM) 10/07/19 08:02 Glucose 88 mg/dL (74-99) 10/07/19 08:02 Calcium 9.3 mg/dL (8.4-10.2) 10/07/19 08:02 Total Bilirubin 0.4 mg/dL (0.2-1.3) 10/07/19 08:02 AST 37 U/L (17-59) 10/07/19 08:02 ALT 38 U/L (4-49) 10/07/19 08:02 Alkaline Phosphatase 47 U/L (38-126) 10/07/19 08:02 Total Protein 6.2 g/dL (6.3-8.2) L 10/07/19 08:02 Albumin 4.0 g/dL (3.5-5.0) 10/07/19 08:02 Triglycerides 47 mg/dL (<150) 10/07/19 08:02 Cholesterol 133 mg/dL (<200) 10/07/19 08:02 LDL Cholesterol, Calc 74 mg/dL (0-99) 10/07/19 08:02 HDL Cholesterol 50 mg/dL (40-60) 10/07/19 08:02 TSH 1.540 mIU/L (0.465-4.680) 10/07/19 08:02 Urine Color Yellow 10/06/19 16:33 Urine Appearance Turbid (Clear) 10/06/19 16:33 Urine pH 6.0 (5.0-8.0) 10/06/19 16:33 Ur Specific [place] 1.037 (1.001-1.035) H 10/06/19 16:33 Urine Protein Trace (Negative) H 10/06/19 16:33 Urine Glucose (UA) Negative (Negative) 10/06/19 16:33 Urine Ketones Trace (Negative) H 10/06/19 16:33 Urine Blood Negative (Negative) 10/06/19 16:33 Urine Nitrite Negative (Negative) 10/06/19 16:33 Urine Bilirubin Negative (Negative) 10/06/19 16:33 Urine Urobilinogen 6.0 mg/dL (<2.0) 10/06/19 16:33 Ur Leukocyte Esterase Negative (Negative) 10/06/19 16:33 Calcium Oxalate Crystal Few /hpf (None) H 10/06/19 16:33 Hyaline Casts 4 /lpf (0-2) H 10/06/19 16:33 Urine Mucus Many /hpf (None) H 10/06/19 16:33 Urine Opiates Screen Not Detected (NotDetected) 10/06/19 16:33 Ur Oxycodone Screen Not Detected (NotDetected) 10/06/19 16:33 Urine Methadone Screen Not Detected (NotDetected) 10/06/19 16:33 Ur Propoxyphene Screen Not Detected (NotDetected) 10/06/19 16:33 Ur Barbiturates Screen Not Detected (NotDetected) 10/06/19 16:33 U Tricyclic Antidepress Not Detected (NotDetected) 10/06/19 16:33 Ur Phencyclidine Scrn Not Detected (NotDetected) 10/06/19 16:33 Ur Amphetamines Screen Detected (NotDetected) H 10/06/19 16:33 U Methamphetamines Scrn Detected (NotDetected) H 10/06/19 16:33 U Benzodiazepines Scrn Not Detected (NotDetected) 10/06/19 16:33 Urine Cocaine Screen Not Detected (NotDetected) 10/06/19 16:33 U Marijuana (THC) Screen Detected (NotDetected) H 10/06/19 16:33 10/07/19 09:47 History & Physical: IDENTIFYING DATA: The patient is a 38-year-old single -[place] male who is well known to this unit from prior admissions. Patient came in seeking help he admits to polysubstance abuse however he has been having hallucinations and having trouble telling reality from delusions. He feels that his mind is, " all messed up" and he is feeling very paranoid. He denied any suicidal or homicidal ideation at this time. Current symptomatology: The patient says that he hears voices all kinds of fucking voices that tell him he is worthless or just talking gibberish. He also is always afraid that his food might be poisoned. He feels that people talk about him and stirred him everywhere he goes. People on the TV try to communicate with him. Sometimes he feels someone touch him and he looks around and no one is there. This is different from the last time he was in the hospital where he was trying to prove that he did not have delusions or hallucinations. The patient was recently discharged from our unit on 05/02/19. He went home on Abilify 1 mg a day Neurontin 200 3 times a day for aches and pains ibuprofen 400 every 6 Tylenol 650 every 6. The patient was somewhat unclear but evidently has not been taking the Abilify Otherwise he denies any chest pain or trouble breathing denies any nausea vomiting fevers chills or abdominal pain He reported some discomfort in his left knee and stiffness, he wears left leg prosthetic for a below-knee amputation He complained that his girlfriend "kicked me out" of their home just prior to his previous admission and he is in an [facility] but says he does not want to go back there. He admitted to smoking and insufflating methamphetamine for the last 6 months. During this time, he has lost approximately 15 pounds. He alleged that family and friends would give him methamphetamine. Current stresses that his brother is currently in the hospital and is dying they're going to be pulling life-support. When I talked to the patient about that he wasn't sure if it could be real or if it was part of his illness and did not seem to be as upset as I would've thought. Labs: His UDS was positive for amphetamines, methamphetamines, and marijuana. Hematology was normal and general chemistry was normal except for a slight decrease in urine protein He denied feeling depressed or having thoughts of and suicide. He denies any homicidal thoughts. He says I'm here to clear my head. PAST PSYCHIATRIC HISTORY: This is his 11th hospitalization to this unit. Past diagnoses are bipolar 1 disorder, depressed, cocaine use disorder, cannabis use disorder, opiate use disorder and alcohol use disorder. Past medications: Invega, trazodone and Effexor. 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 He alleged that he has used most drugs including or opiate medications, marijuana, cocaine, crack cocaine, heroin and most recently methamphetamine. He has a high history of IV drug use. He attended "a couple" residential treatment programs and completed one at [place]. He is currently positive for amphetamines methamphetamines and marijuana FAMILY PSYCHIATRIC/SUBSTANCE USE HISTORY: His brother and father have history of alcohol use disorder. He alleged his sister has a cocaine 1 use disorder. LEGAL HISTORY: According to the [facility] court doctor that he has had multiple legal charges including DUI, domestic violence and possession of controlled substance. He is currently court ordered for care. SOCIAL HISTORY: He was born in intact family and raised in [facility]. He has 1 brother and 1 sister. He is unemployed and receives Social Security disability. He is single and has 2 children out of blood clot with whom he has no contact. He has no stable residence. He had an eighth grade education but earned his GED. He was not into . He denied history of physical, sexual or emotional abuse. MENTAL STATUS EXAM: He presented as cooperative but vague and guarded 38-year-old -[place] male who was sitting comfortably. He was able to walk to the interview to the use of a prosthetic. He was wearing the lower leg orthotic. He made eye contact and appeared to attend to the interview. He showed no abnormality of psychomotor activity. He is not restless, agitated or slowed. His speech was spontaneous with normal rate, rhythm and volume. His affect was flat. He denied suicidal ideation and wishes. He denied homicidal ideation. He did not seem to be responding to voices and I couldn't tell if he was agreeing to all my questions about psychotic symptoms because he actually experienced them he did seem to positive thinking as to whether it was so. His thinking was concrete and associations were coherent and logical. Global impression of intellect is average. He has insight or understanding on his substance use and the relationship between his methamphetamine use and his psychological distress. STRENGTHS: Stable income, relatively good health WEAKNESSES/stress: Chronic substance use, lack of stable housing, recurrent interpersonal conflict, brother is dying IMPRESSION: Is a 38-year-old -[place] male who has a history of substance use disorders. [facility]ia and paranoid delusion complicated by the use of methamphetamine. As a result of his methamphetamine use he lost his housing and distanced himself from friends and family. He should be treated inpatient basis with combination of psychopharmacology and multimodal therapy. PRINCIPLE DIAGNOSIS: Methamphetamine use disorder severe, methamphetamine induced psychotic disorder, opiate use disorder severe, alcohol use disorder severe cocaine use disorder severe, cannabis use disorder RECOMMENDATION: Admit the psychiatric unit. Safety precautions. Consult medicine service to his physical exam and medical history. 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 He declined treatment with an antipsychotic I'm going to suggest inVega again and he probably needs a shot after discharge. Discuss referral for residential substance abuse treatment. Encourage participation in therapeutic groups and activities. Evaluate clinical status response to treatment daily basis.
[2019-10-07 19:11] LABS: Hemoglobin A1C 5.9 % (4.0-6.0)
[2019-10-07] MEDS ORDERED: PALIPERIDONE 3 MG TAB.ER.24 PO SCH (21:00)
[2019-10-08] MEDS: GABAPENTIN 300 MG CAP PO SCH ×4 (09:52→21:45)
[2019-10-08] MEDS: ACETAMINOPHEN TAB 325 MG TAB PO PRN ×2 (09:52→17:48)
[2019-10-08] MEDS: NICOTINE 21MG/24HR PATCH TRANSDERM SCH (09:52)
[2019-10-08] MEDS: LORazepam 1 MG TAB PO PRN ×2 (09:52→17:48)
--- NOTE | 2019-10-08 15:42 | P.PN ---
Subjective Progress Note Date: 10/08/19 Principal diagnosis: Diagnosis schizoaffective disorder depressive type: Subjective: The patient tolerated the 3 mg of paliperidone but feels like he needs a little bit more he also wants something for depression I explained to him that the serotonin reuptake inhibitors are liable to make his voice is worse but there are a couple medicines that might be worth trying. He says he does have a little trouble with sleep and little trouble with appetite. Objective vital signs temperature 98.3 heart rate 73 respirations 16 blood pressure 123/58 Labs: Hematology is fine general chemistry is fine urinalysis is okay and of course his toxicology showed amphetamines and marijuana Patient has not been attending groups where he feels he is not getting benefit and get himself worked up I strongly encouraged him to go to groups Staff report patient is anxious withdrawn minimal self-care vague he is oriented to person place time and said situation alert denies any suicidal or homicidal features. Objective reasonable eye contact reasonable self-care became quickly when called able to understand abstract ideas and asked questions and ask for his needs no signs of tardive dyskinesia no appearing to be responding to voices during our session he denies suicidality Assessment: Patient is slightly better but need some more help with both depression and psychosis is a seem to have a life of their own. (Typical of schizoaffective disorder) Plan: Increase paliperidone to 6 mg at night and add in 15 mg of mirtazapine if he tolerates that we'll try to get that up to 30 Objective - Vital Signs Vital signs: Vital Signs Temp 98.3 F 10/08/19 06:08 Pulse 73 10/08/19 06:08 Resp 16 10/08/19 06:08 BP 123/58 10/08/19 06:08 Pulse Ox 99 10/06/19 18:58 Intake & Output 10/07/19 10/08/19 10/08/19 18:59 06:59 18:59 Weight 63.9 kg 64.8 kg - Labs CBC & Chem 7: 10/07/19 08:02 10/07/19 08:02
[2019-10-08] MEDS: PALIPERIDONE 6 MG TAB.ER.24 PO SCH (21:45)
[2019-10-08] MEDS: MIRTAZAPINE 15 MG TAB PO SCH (21:45)
[2019-10-09] MEDS: NICOTINE 21MG/24HR PATCH TRANSDERM SCH (10:39)
[2019-10-09] MEDS: GABAPENTIN 300 MG CAP PO SCH ×4 (10:39→21:23)
[2019-10-09] MEDS: LORazepam 1 MG TAB PO PRN ×2 (11:06→21:23)
[2019-10-09] MEDS: ACETAMINOPHEN TAB 325 MG TAB PO PRN (11:07)
[2019-10-09] MEDS: PALIPERIDONE 6 MG TAB.ER.24 PO SCH (21:23)
[2019-10-09] MEDS: MIRTAZAPINE 15 MG TAB PO SCH (21:23)
[2019-10-10 06:43] VITALS: RESP 16; TEMP 97.9
[2019-10-10] MEDS: NICOTINE 21MG/24HR PATCH TRANSDERM SCH (08:04)
[2019-10-10] MEDS: GABAPENTIN 300 MG CAP PO SCH ×4 (08:04→21:12)
--- NOTE | 2019-10-10 11:21 | P.PN ---
Subjective Progress Note Date: 10/10/19 Principal diagnosis: Diagnosis schizoaffective disorder depressive type: Subjective: Patient says he slept fairly well has some discomfort in his limb from chafing is frustrated that he has not been able to get hold of any family members or friends in terms of does he have a place to stay after he leaves. He did see all of them when they came to the hospital when his brother was dying today the patient was admitted and all assured him that he had a place with them. Objective: Vital signs: Temperature 97.9 heart rate is 66 respiration 16 blood pressure 122/67 and saturation is 97 Labs nothing new Groups patient has not been attending. Staff report that he came looked at the group was thinking of coming in but was unable to do so they were unable to find out what his concern was. Staff report patient seems depressed even tearful withdrawn disheveled anxious but cooperative vague he is oriented rather drowsy denying suicidality or homicidality. He did require some Ativan last night about 9 PM he was able to sleep about 6 hours last night Mental status exam: The patient is alert good eye contact cooperative asked for his needs to be met him, he walks a little uncomfortably because his prosthesis was chafing on him he continues with some mild psychotic experiences he noticed that many of our staff members are new and thinks that they replaced the old ones in order to plot and spy on him however parted him last when he says that he realizes pride doesn't make a lot of sense. Assessment and plan patient is still quite anxious and moderately psychotic. I needed him to be going to groups and participate to assess the control he has over his symptoms, however he finds going to groups makes him feel overwhelmed like care one is staring at him or plotting against him. We are going to increase the mirtazapine to 15 and continue the paliperidone 6 mg Objective - Vital Signs Vital signs: Vital Signs Temp 97.9 F 10/10/19 06:43 Pulse 66 10/09/19 06:14 Resp 16 10/10/19 06:43 BP 122/67 10/10/19 06:43 Pulse Ox 97 10/10/19 06:43 - Labs CBC & Chem 7: 10/07/19 08:02 10/07/19 08:02
[2019-10-10] MEDS: LORazepam 1 MG TAB PO PRN ×2 (12:26→17:12)
[2019-10-10] MEDS: ACETAMINOPHEN TAB 325 MG TAB PO PRN (17:12)
[2019-10-10] MEDS ORDERED: MIRTAZAPINE 15 MG TAB PO SCH (21:00)
[2019-10-10] MEDS: PALIPERIDONE 6 MG TAB.ER.24 PO SCH (21:12)
[2019-10-11 07:03] VITALS: BP 127/70; PULSE 72
[2019-10-11] MEDS: GABAPENTIN 300 MG CAP PO SCH ×2 (08:48→13:43)
[2019-10-11] MEDS: NICOTINE 21MG/24HR PATCH TRANSDERM SCH (08:48)
[2019-10-11] MEDS: LORazepam 1 MG TAB PO PRN (11:04)
--- NOTE | 2019-10-11 11:40 | P.DS ---
Providers Date of admission: 10/06/19 18:01 Expected date of discharge: 10/11/19 Attending physician: Hazel Lowe MD Consults: 10/06/19 18:06 Consult Physician Routine Consulting Provider: Camron Physician Consult Reason/Comments: medical management Do you want consulting provider notified?: Yes Primary care physician: Stated None Hospital Course: The patient was admitted to the psychiatric unit on 10/05 and is being discharged on 10/10 He was started on haloperidol 6 mg has taken that faithfully and has responded rapidly with a elimination of psychotic symptoms He was also started on mirtazapine to help with sleep and energy focus and calmness. It is one of the antidepressants least likely to agitate psychosis and he seems to be tolerating it well and is sleeping better and also helps in the ignoring chronic pain due to its effect on norepinephrine The patient attended groups and was alert cooperative somewhat restless he says I'm always that way. He would initiate interaction with peers and staff and followed directions well. Staff assessment of time of discharge that he was well groomed somewhat guarded and withdrawn logical low energy denies hallucinations delusions suicidality or homicidality and was oriented to person place time and circumstances Mental status exam: Patient was alert good eye contact reasonable response times psychomotor activity is normal oriented to person place time and circumstance did not seem to be responding to any voices did not act paranoid and denied having any did not look sad just a little slowed down and said that his appetite and sleep are fine without being excessive Plan he has follow-up for medications and counseling and I reviewed with him some things he might want to work on in counseling and how to maximize the benefit. He seems to have had a good attitude and at least for a while prognosis is fair Assessment: Patient is doing much better his psychosis is almost cleared and he is feeling hopeful and is handling stress well Health Concerns: The patient was physically stable he did have a little bit a chafing at the end of his leg where it rubs on the prosthesis and has a history of deep vein thrombosis and he smokes on a regular basis but no acute issues Pertinent Studies: He had routine labs drawn including a hematology which was normal general chemistry was normal For a slight decrease in protein and was advised to eat more protein and urinalysis showed some trace elements but no white cells or evidence or symptoms of infection. Of course his toxicology showed his methamphetamines amphetamines and marijuana Procedures: None Patient Condition at Discharge: Fair Plan - Discharge Summary New Discharge Prescriptions: New Paliperidone [Invega] 6 mg PO HS 30 Days #30 tab.[email or web address] Gabapentin [Neurontin] 300 mg PO QID 30 Days #120 cap Mirtazapine [Remeron] 30 mg PO HS 30 Days #60 tab Discontinued Ibuprofen [Motrin Ib] 800 mg PO DAILY PRN PRN Reason: Pain Discharge Medication List Gabapentin [Neurontin] 300 mg PO QID 30 Days #120 cap 10/11/19 [Rx] Mirtazapine [Remeron] 30 mg PO HS 30 Days #60 tab 10/11/19 [Rx] Paliperidone [Invega] 6 mg PO HS 30 Days #30 tab.er.[email or web address] 10/11/19 [Rx] Follow up Appointment(s)/Referral(s): [facility] [Outside] - 10/12/19 10:00 am (Phone intake laurent Nascimento 10/12/19 at 10:00 am.) None,Stated [Primary Care Provider] - 1-2 days Activity/Diet/Wound Care/Special Instructions: Activity and diet as tolerated. Avoid the use of street drugs and alcohol. Take all medications as prescribed. When you are in need of refills on your medications please contact your medical provider and/or outpatient psychiatrist to have this done. Please go to scheduled outpatient appointment for aftercare treatment. If symptoms return or become worse, call the crisis line at and/or go to the nearest emergency room for evaluation.
[2019-10-11 11:48] VITALS: BMI 19.9
== END 2019-10-11 13:35 | disposition home or self-care (01) | DRG 885 ==
LOC: EC 15:26 → 3MHU 18:01
PROVIDERS: ADMIT Psychiatry & Neurology Psychiatry; ATTEND Psychiatry & Neurology Psychiatry
DX: F25.1 Schizoaffective disorder, depressive type (principal); R45.851 Suicidal ideations; F11.20 Opioid dependence, uncomplicated; F14.20 Cocaine dependence, uncomplicated; Z59.0 Homelessness; F10.20 Alcohol dependence, uncomplicated; F60.2 Antisocial personality disorder; Z89.512 Acquired absence of left leg below knee; F12.10 Cannabis abuse, uncomplicated; G89.29 Other chronic pain; M17.11 Unilateral primary osteoarthritis, right knee; L30.4 Erythema intertrigo; F17.210 Nicotine dependence, cigarettes, uncomplicated; Z71.6 Tobacco abuse counseling; Z86.718 Personal history of other venous thrombosis and embolism; Z97.14 Presence of artificial left leg (complete) (partial); Z87.81 Personal history of (healed) traumatic fracture; Z86.14 Personal history of Methicillin resistant Staphylococcus aureus infection; Z87.19 Personal history of other diseases of the digestive system; Z86.19 Personal history of other infectious and parasitic diseases; Z98.890 Other specified postprocedural states; Z65.3 Problems related to other legal circumstances; Z80.1 Family history of malignant neoplasm of trachea, bronchus and lung; Z80.8 Family history of malignant neoplasm of other organs or systems; Z81.8 Family history of other mental and behavioral disorders; Z81.4 Family history of other substance abuse and dependence
CPT/HCPCS: 80053; 80061; 80306; 81001; 82075; 83036; 84443; 85025; 99285

== ENCOUNTER 2021-11-09 12:29 | Emergency (ER) | payer OTHER ==
[2021-11-09 12:40] VITALS: RESP 18
--- NOTE | 2021-11-09 12:56 | ED ---
General Adult HPI - General Chief complaint: Chest Pain Stated complaint: Chest Pain Time Seen by Provider: 11/09/21 12:31 Source: patient, EMS, RN notes reviewed, old records reviewed Mode of arrival: EMS Limitations: no limitations - History of Present Illness Initial comments: 41-year-old male presenting for evaluation of right upper chest pain and no prior history of CAD. Patient does have previous history of arterial clot in the left leg resulting in amputation. Patient is uncertain of the exact details surrounding this. No prior history of PE. Patient denies associated dyspnea. No diaphoresis or vomiting. - Related Data Previous Rx's Medication Instructions Recorded Gabapentin [Neurontin] 300 mg PO QID 30 Days #120 cap 10/11/19 Mirtazapine [Remeron] 30 mg PO HS 30 Days #60 tab 10/11/19 Paliperidone [Invega] 6 mg PO HS 30 Days #30 tab.er.24 10/11/19 Allergies Allergy/AdvReac Type Severity Reaction Status Date / Time No Known Allergies Allergy Verified 11/09/21 12:36 Review of Systems ROS Statement: Those systems with pertinent positive or pertinent negative responses have been documented in the HPI. ROS Other: All systems not noted in ROS Statement are negative. Past Medical History Past Medical History: Deep Vein Thrombosis (DVT) Additional Past Medical History / Comment(s): Sepsis secondary to a left foot infection from stepping on a nail that developed into gangrene of the second, third and fourth toes status post [id number] amputation, R elbow fracture. History of Any Multi-Drug Resistant Organisms: MRSA Date of last positivie culture/infection: 03/20/15 MDRO Source:: Left fourth finger Past Surgical History: Hernia Repair Additional Past Surgical History / Comment(s): Inguinal hernia repair as child (does not recall laterallity). 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 He was a smoker. Mother Family Medical History: Cancer Additional Family Medical History / Comment(s): Mother had lung cancer. She of this at the age of 50yrs. She was a smoker. Brother(s) Family Medical History: No Reported History Additional Family Medical History / Comment(s): He has one brother that is 40 years of age with no major medical problems. Sister(s) Family Medical History: No Reported History Additional Family Medical History / Comment(s): He has one sister that is 39 years of age and does not have any major medical problems. Patient has 2 sons that are currently living with their mother. General Exam Limitations: no limitations General appearance: alert, in no apparent distress Head exam: Present: atraumatic, normocephalic Eye exam: Present: normal appearance, PERRL ENT exam: Present: normal exam Neck exam: Present: normal inspection. Absent: tenderness Respiratory exam: Present: normal lung sounds bilaterally, chest wall tenderness. Absent: respiratory distress Cardiovascular Exam: Present: regular rate, normal rhythm GI/Abdominal exam: Present: soft. Absent: distended, tenderness Extremities exam: Present: normal inspection, normal capillary refill Back exam: Present: normal inspection Neurological exam: Present: alert, oriented X3, CN II-XII intact. Absent: motor sensory deficit Psychiatric exam: Present: normal affect, normal mood Skin exam: Present: warm, dry, intact. Absent: cyanosis, diaphoretic Course Vital Signs 11/09/21 12:32 Temperature 98.6 F Pulse Rate 78 Respiratory 18 Rate Blood Pressure 125/91 O2 Sat by Pulse 98 Oximetry EKG Findings - EKG Comments: EKG Findings:: EKG: Sinus rhythm no ST segment elevation, suspect this OH depression in the inferior leads rate of 85, OH interval 138, QRS duration 90, QTC 410 Medical Decision Making - Medical Decision Making 41-year-old male presenting with upper chest pain right sided. Reproducible on exam. Patient did report a respiratory component to this pain. I did perform an EKG, chest x-ray and laboratory testing. Chest x-ray is clear, EKG is sinus without definitive signs of ischemia. He has a normal CBC, normal CMP, negative d-dimer, negative troponin. Patient is given return parameters he will take Motrin for pain. He will return with worsening or changing symptoms. - Lab Data Result diagrams: 11/09/21 12:49 11/09/21 12:49 Lab Results 11/09/21 11/09/21 11/09/21 Range/Units 12:49 12:49 12:49 WBC 7.5 (3.8-10.6) k/uL RBC 4.66 (4.30-5.90) m/uL Hgb 13.9 (13.0-17.5) gm/dL Hct 44.2 (39.0-53.0) % MCV 94.8 (80.0-100.0) fL MCH 29.9 (25.0-35.0) pg MCHC 31.5 (31.0-37.0) g/dL RDW 13.0 (11.5-15.5) % Plt Count 358 (150-450) k/uL MPV 7.3 Neutrophils % 62 % Lymphocytes % 30 % Monocytes % 4 % Eosinophils % 1 % Basophils % 1 % Neutrophils # 4.7 (1.3-7.7) k/uL Lymphocytes # 2.2 (1.0-4.8) k/uL Monocytes # 0.3 (0-1.0) k/uL Eosinophils # 0.1 (0-0.7) k/uL Basophils # 0.1 (0-0.2) k/uL PT 10.2 (9.0-12.0) sec INR 0.9 (<1.2) APTT 24.9 (22.0-30.0) sec D-Dimer 0.26 (<0.60) mg/L FEU Sodium 141 (137-145) mmol/L Potassium 4.0 (3.5-5.1) mmol/L Chloride 108 H (98-107) mmol/L Carbon Dioxide 25 (22-30) mmol/L Anion Gap 8 mmol/L BUN 9 (9-20) mg/dL Creatinine 0.76 (0.66-1.25) mg/dL Est GFR (CKD-EPI)AfAm >90 (>60 ml/min/1.73 sqM) Est GFR (CKD-EPI)NonAf >90 (>60 ml/min/1.73 sqM) Glucose 114 H (74-99) mg/dL Calcium 8.7 (8.4-10.2) mg/dL Magnesium 1.9 (1.6-2.3) mg/dL Total Bilirubin 0.4 (0.2-1.3) mg/dL AST 26 (17-59) U/L ALT 29 (4-49) U/L Alkaline Phosphatase 50 (38-126) U/L Troponin I (0.000-0.034) ng/mL NT-Pro-B Natriuret Pep pg/mL Total Protein 6.2 L (6.3-8.2) g/dL Albumin 3.9 (3.5-5.0) g/dL Lipase 66 (23-300) U/L 11/09/21 11/09/21 Range/Units 12:49 12:49 WBC (3.8-10.6) k/uL RBC (4.30-5.90) m/uL Hgb (13.0-17.5) gm/dL Hct (39.0-53.0) % MCV (80.0-100.0) fL MCH (25.0-35.0) pg MCHC (31.0-37.0) g/dL RDW (11.5-15.5) % Plt Count (150-450) k/uL MPV Neutrophils % % Lymphocytes % % Monocytes % % Eosinophils % % Basophils % % Neutrophils # (1.3-7.7) k/uL Lymphocytes # (1.0-4.8) k/uL Monocytes # (0-1.0) k/uL Eosinophils # (0-0.7) k/uL Basophils # (0-0.2) k/uL PT (9.0-12.0) sec INR (<1.2) APTT (22.0-30.0) sec D-Dimer (<0.60) mg/L FEU Sodium (137-145) mmol/L Potassium (3.5-5.1) mmol/L Chloride (98-107) mmol/L Carbon Dioxide (22-30) mmol/L Anion Gap mmol/L BUN (9-20) mg/dL Creatinine (0.66-1.25) mg/dL Est GFR (CKD-EPI)AfAm (>60 ml/min/1.73 sqM) Est GFR (CKD-EPI)NonAf (>60 ml/min/1.73 sqM) Glucose (74-99) mg/dL Calcium (8.4-10.2) mg/dL Magnesium (1.6-2.3) mg/dL Total Bilirubin (0.2-1.3) mg/dL AST (17-59) U/L ALT (4-49) U/L Alkaline Phosphatase (38-126) U/L Troponin I <0.012 (0.000-0.034) ng/mL NT-Pro-B Natriuret Pep 172 pg/mL Total Protein (6.3-8.2) g/dL Albumin (3.5-5.0) g/dL Lipase (23-300) U/L Disposition Clinical Impression: Chest wall pain, Atypical chest pain Disposition: HOME SELF-CARE Condition: Good Instructions (If sedation given, give patient instructions): Chest Pain (ED) Additional Instructions: Please take Motrin for pain. Please return for worsening or changing symptoms. Is patient prescribed a controlled substance at d/c from ED?: No Referrals: [facility] [Primary Care Provider] - 1-2 days Time of Disposition: 13:40
[2021-11-09 12:57] LABS: Basophils # (A) 0.1 k/uL (0-0.2); Basophils % (A) 1 %; Eosinophils # (A) 0.1 k/uL (0-0.7); Eosinophils % (A) 1 %; HCT 44.2 % (39.0-53.0); HGB 13.9 gm/dL (13.0-17.5); Lymphocytes # (A) 2.2 k/uL (1.0-4.8); Lymphocytes % (A) 30 %; MCH 29.9 pg (25.0-35.0); MCHC 31.5 g/dL (31.0-37.0); MCV 94.8 fL (80.0-100.0); Mean Platelet Volume 7.3; Monocytes # (A) 0.3 k/uL (0-1.0); Monocytes % (A) 4 %; Neutrophils # (A) 4.7 k/uL (1.3-7.7); Neutrophils % (A) 62 %; Platelet Count 358 k/uL (150-450); RBC 4.66 m/uL (4.30-5.90); WBC 7.5 k/uL (3.8-10.6)
--- NOTE | 2021-11-09 13:02 | XR ---
EXAMINATION TYPE: XR chest 2V DATE OF EXAM: 11/09/2021 COMPARISON: 05/21/2015 HISTORY: Chest pain TECHNIQUE: Frontal and lateral views of the chest are obtained. FINDINGS: There is no focal air space opacity. No evidence for pneumothorax. No pleural effusion. The cardiac silhouette size is within normal limits. The osseous structures are grossly intact. IMPRESSION: 1. No acute cardiopulmonary process.
[2021-11-09 13:12] LABS: INR 0.9 (<1.2); Partial Thromboplastin Time 24.9 sec (22.0-30.0); Prothrombin Time 10.2 sec (9.0-12.0)
[2021-11-09 13:21] LABS: ALT 29 U/L (4-49); AST 26 U/L (17-59); African American GFR (CKD) >90 (>60 ml/min/1.73 sqM); Albumin 3.9 g/dL (3.5-5.0); Alkaline Phosphatase 50 U/L (38-126); Anion Gap 8 mmol/L; Blood Urea Nitrogen 9 mg/dL (9-20); Calcium 8.7 mg/dL (8.4-10.2); Carbon Dioxide 25 mmol/L (22-30); Chloride 108 mmol/L (98-107); Glucose 114 mg/dL (74-99); Lipase 66 U/L (23-300); Magnesium 1.9 mg/dL (1.6-2.3); Non-African American GFR(CKD) >90 (>60 ml/min/1.73 sqM); Sodium 141 mmol/L (137-145); Total Bilirubin 0.4 mg/dL (0.2-1.3); Total Protein 6.2 g/dL (6.3-8.2)
[2021-11-09] MEDS ORDERED: KETOROLAC 15 MG/ML 1 ML VIAL IVP STA (13:42)
[2021-11-09 13:59] VITALS: BP 131/93; PULSE 71; TEMP 98.2
== END 2021-11-09 13:59 | disposition home or self-care (01) ==
LOC: EC 12:29
DX: R07.89 Other chest pain (principal); Z86.718 Personal history of other venous thrombosis and embolism; F41.9 Anxiety disorder, unspecified; F31.9 Bipolar disorder, unspecified; F17.200 Nicotine dependence, unspecified, uncomplicated; F12.90 Cannabis use, unspecified, uncomplicated; Z79.899 Other long term (current) drug therapy
CPT/HCPCS: 36415; 93005; 85379; 83880; 80053; 83690; 83735; 84484; 85025; 85610; 85730; 71046; 99285; 96374; J1885

== ENCOUNTER 2021-11-12 00:48 | Emergency (ER) | payer OTHER ==
[2021-11-12 00:56] VITALS: BP 117/74; RESP 14; TEMP 98
--- NOTE | 2021-11-12 03:35 | ED ---
Overdose HPI - General Chief Complaint: Overdose Stated Complaint: overdose Time Seen by Provider: 11/12/21 00:55 Source: EMS Mode of arrival: EMS Limitations: no limitations - History of Present Illness Initial Comments: 41-year-old male presents to emergency room after he overdosed at home. He lives with his sister. Apparently she found him unresponsive. EMS was called and administered 2 mg of IM Narcan. Patient became arousable. Upon my exam is awake, alert and very tearful. States that he is overdosed 3 times the past 2 weeks. States that he "wants to go to sleep and not wake up". Admits to being very depressed and suicidal. Denies any additional ways to harm himself. Denies alcohol use. - Related Data Previous Rx's Medication Instructions Recorded Gabapentin [Neurontin] 300 mg PO QID 30 Days #120 cap 10/11/19 Mirtazapine [Remeron] 30 mg PO HS 30 Days #60 tab 10/11/19 Paliperidone [Invega] 6 mg PO HS 30 Days #30 tab.er.24 10/11/19 Allergies Allergy/AdvReac Type Severity Reaction Status Date / Time No Known Allergies Allergy Verified 11/09/21 12:36 Review of Systems ROS Statement: Those systems with pertinent positive or pertinent negative responses have been documented in the HPI. ROS Other: All systems not noted in ROS Statement are negative. Past Medical History Past Medical History: Deep Vein Thrombosis (DVT) Additional Past Medical History / Comment(s): Sepsis secondary to a left foot infection from stepping on a nail that developed into gangrene of the second, third and fourth toes status post [id number] amputation, R elbow fracture. History of Any Multi-Drug Resistant Organisms: MRSA Date of last positivie culture/infection: 03/20/15 MDRO Source:: Left fourth finger Past Surgical History: Hernia Repair Additional Past Surgical History / Comment(s): Inguinal hernia repair as child (does not recall laterallity). 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 He was a smoker. Mother Family Medical History: Cancer Additional Family Medical History / Comment(s): Mother had lung cancer. She of this at the age of 50yrs. She was a smoker. Brother(s) Family Medical History: No Reported History Additional Family Medical History / Comment(s): He has one brother that is 40 years of age with no major medical problems. Sister(s) Family Medical History: No Reported History Additional Family Medical History / Comment(s): He has one sister that is 39 years of age and does not have any major medical problems. Patient has 2 sons that are currently living with their mother. General Exam Limitations: no limitations General appearance: alert, in no apparent distress Head exam: Present: atraumatic, normocephalic, normal inspection Eye exam: Present: normal appearance, PERRL, EOMI. Absent: scleral icterus, conjunctival injection, periorbital swelling ENT exam: Present: normal exam, mucous membranes moist Neck exam: Present: normal inspection. Absent: tenderness, meningismus, lymphadenopathy Respiratory exam: Present: normal lung sounds bilaterally. Absent: respiratory distress, wheezes, rales, rhonchi, stridor Cardiovascular Exam: Present: regular rate, normal rhythm, normal heart sounds. Absent: systolic murmur, diastolic murmur, rubs, gallop, clicks GI/Abdominal exam: Present: soft, normal bowel sounds. Absent: distended, tenderness, guarding, rebound, rigid Extremities exam: Present: normal capillary refill, other (lle bka). Absent: tenderness, pedal edema, joint swelling, calf tenderness Back exam: Present: normal inspection Neurological exam: Present: alert, oriented X3, CN II-XII intact Psychiatric exam: Present: depressed Skin exam: Present: warm, dry, intact, normal color. Absent: rash Course Vital Signs 11/12/21 11/12/21 00:50 01:05 Temperature 98.0 F Pulse Rate 85 Pulse Rate [ 98 Apical] Respiratory 14 Rate Blood Pressure 117/74 O2 Sat by Pulse 100 Oximetry Medical Decision Making - Medical Decision Making Upon arrival patient is placed into room 22. He is awake, alert. Patient is not intoxicated. Extremely tearful and stating that he is suicidal. States that his overdoses and attempts to harm him. Patient will be evaluated by EPS. We are currently awaiting the recommendations EPS evaluated the patient - patient denies depression or suicidal ideations to them - states he made those statements because he did not want police to take him to [facility]. Patient will be discharged at this time Disposition Clinical Impression: Narcotic abuse, Accidental drug overdose Disposition: HOME SELF-CARE Condition: Stable Instructions (If sedation given, give patient instructions): Adult Overdose (ED) Is patient prescribed a controlled substance at d/c from ED?: No Referrals: [facility] [Primary Care Provider] - 1-2 days Time of Disposition: 05:03
[2021-11-12 04:01] VITALS: PULSE 98
== END 2021-11-12 05:34 | disposition home or self-care (01) ==
LOC: EC 00:48
DX: T50.7X1A Poisoning by analeptics and opioid receptor antagonists, accidental (unintentional), initial encounter (principal); F11.10 Opioid abuse, uncomplicated; Z86.718 Personal history of other venous thrombosis and embolism; F17.200 Nicotine dependence, unspecified, uncomplicated
CPT/HCPCS: 82075; 99284

== ENCOUNTER 2022-06-01 22:44 | Inpatient (IN) | payer MEDICAID, OTHER ==
[2022-06-02] MEDS ORDERED: LORazepam 1 MG TAB PO STA (00:29)
--- NOTE | 2022-06-02 00:46 | ED ---
Psych HPI - General Chief Complaint: Psychiatric Symptoms Stated Complaint: Mental health Time Seen by Provider: 06/01/22 23:39 Source: patient Mode of arrival: ambulatory - History of Present Illness Initial Comments: This patient is a 41-year-old man who presents with complaint that he's had worsening of his usual psychiatric symptoms. He states that he is hearing voices and he is having some suicidal ideation. The patient notes that his treatment is usually through [facility], but he has missed the last few appointments. He is now out of his medications including in vague and Remeron. MD Complaint: suicidal ideation, feels depressed, other -: days(s) Associated Psychiatric Symptoms: depression, suicidal ideation, racing thoughts, auditory hallucinations Quality: constant Improves With: none Worsens With: none - Related Data Previous Rx's Medication Instructions Recorded Acetaminophen Tab [Tylenol] 650 mg PO Q4HR PRN tab 06/09/22 Gabapentin [Neurontin] 300 mg PO TID 30 Days #90 cap 06/09/22 Ibuprofen [Motrin] 400 mg PO Q6HR PRN tab 06/09/22 Nicotine 14Mg/24Hr Patch [Habitrol] 1 patch TRANSDERM DAILY 14 Days 06/09/22 #14 patch Tamsulosin [Flomax] 0.4 mg PO PC-SUPPER 30 Days #30 cap 06/09/22 Vortioxetine Hydrobromide 20 mg PO DAILY 30 Days #30 tab 06/09/22 [Trintellix] risperiDONE ER inj [Perseris] 120 mg SQ QMONTHLY #1 each 06/09/22 traZODone HCL [Desyrel] 50 mg PO HS PRN 30 Days #30 tab 06/09/22 Allergies Allergy/AdvReac Type Severity Reaction Status Date / Time No Known Allergies Allergy Verified 06/01/22 23:06 Review of Systems ROS Statement: Those systems with pertinent positive or pertinent negative responses have been documented in the HPI. ROS Other: All systems not noted in ROS Statement are negative. Constitutional: Denies: fever, weakness Eyes: Denies: vision change Respiratory: Denies: cough, dyspnea Cardiovascular: Denies: chest pain, palpitations, edema, syncope Gastrointestinal: Denies: abdominal pain, vomiting, diarrhea Genitourinary: Denies: dysuria, hematuria Skin: Denies: rash Neurological: Denies: headache, weakness Psychiatric: Reports: depression, auditory hallucinations, suicidal thoughts. Denies: visual hallucinations, homicidal thoughts Past Medical History Past Medical History: Deep Vein Thrombosis (DVT) Additional Past Medical History / Comment(s): Sepsis secondary to a left foot infection from stepping on a nail that developed into gangrene of the second, third and fourth toes status post [id number] amputation, R elbow fracture. History of Any Multi-Drug Resistant Organisms: MRSA Date of last positivie culture/infection: 03/20/15 MDRO Source:: Left fourth finger Past Surgical History: Hernia Repair Additional Past Surgical History / Comment(s): Inguinal hernia repair as child (does not recall laterallity). 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 He was a smoker. Mother Family Medical History: Cancer Additional Family Medical History / Comment(s): Mother had lung cancer. She of this at the age of 50yrs. She was a smoker. Brother(s) Family Medical History: No Reported History Additional Family Medical History / Comment(s): He has one brother that is 40 years of age with no major medical problems. Sister(s) Family Medical History: No Reported History Additional Family Medical History / Comment(s): He has one sister that is 39 years of age and does not have any major medical problems. Patient has 2 sons that are currently living with their mother. General Exam Limitations: no limitations General appearance: alert, in no apparent distress Eye exam: Present: normal appearance. Absent: scleral icterus, conjunctival injection Neck exam: Present: normal inspection, full ROM Respiratory exam: Present: normal lung sounds bilaterally. Absent: respiratory distress, wheezes, rales, rhonchi, stridor Cardiovascular Exam: Present: regular rate, normal rhythm, normal heart sounds. Absent: systolic murmur, diastolic murmur, rubs, gallop GI/Abdominal exam: Present: soft. Absent: distended, tenderness, guarding, rebound, mass Extremities exam: Present: normal capillary refill. Absent: normal inspection (Left leg BKA), pedal edema, calf tenderness Back exam: Present: normal inspection. Absent: CVA tenderness (R), CVA tenderness (L) Neurological exam: Present: alert Psychiatric exam: Present: depressed, suicidal ideation. Absent: anxious, flat affect, manic, homicidal ideation Skin exam: Present: warm, dry, intact, normal color. Absent: rash Course Vital Signs 06/01/22 23:00 Temperature 97.7 F Pulse Rate 80 Respiratory 20 Rate Blood Pressure 125/74 O2 Sat by Pulse 98 Oximetry Medical Decision Making - Medical Decision Making The patient is 41-year-old man with worsening of his psychiatric symptoms. The patient is seen by EPS and will be admitted for further psychiatric care. Was pt. sent in by a medical professional or institution (, [facility], ADVERTISING SUPERVISOR, urgent care, hospital, or retirement...) When possible be specific @ -[No] Did you speak to anyone other than the patient for history (EMS, parent, family, police, friend...)? What history was obtained from this source @ -[No] Did you review nursing and triage notes (agree or disagree)? Why? @ -[I reviewed and agree with nursing and triage notes] Were old charts reviewed (outside hosp., previous admission, EMS record, old EKG, old radiological studies, urgent care reports/EKG's, retirement records)? Report findings @ -[No old charts were reviewed] Differential Diagnosis (chest pain, altered mental status, abdominal pain women, abdominal pain men, vaginal bleeding, weakness, fever, dyspnea, syncope, headache, dizziness, GI bleed, back pain, seizure, CVA, palpatations, mental health, musculoskeletal)? @ -[Differential Mental Health Depression, anxiety, bipolar, psychosis, schizophrenia, borderline personality, situational depression, adjustment disorder, behavioral disorder, brain tumor, malingering, substance abuse, encephalopathy, medication reaction, dementia, hypothyroidism, degenerative neurologic disorder, lupus.... This is not meant to be all-inclusive list EKG interpreted by me (3pts min.). @ -[As above] X-rays interpreted by me (1pt min.). @ -[None done] CT interpreted by me (1pt min.). @ -[None done] U/S interpreted by me (1pt. min.). @ -[None done] What testing was considered but not performed or refused? (CT, X-rays, U/S, labs)? Why? @ -[None] What meds were considered but not given or refused? Why? @ -[None] Did you discuss the management of the patient with other professionals (professionals i.e. Dr., PA, ADVERTISING SUPERVISOR, lab, RT, psych nurse, nursing home social worker, esthetician and manager medical spa, teacher, parking officer, porter sample case)? Give summary @ -[EPS personnel Was smoking cessation discussed for >3mins.? @ -[No] Was critical care preformed (if so, how long)? @ -[No] Were there social determinants of health that impacted care today? How? (Homelessness, low income, unemployed, alcoholism, drug addiction, transportation, low edu. Level, literacy, decrease access to med. care, [place] [facility], rehab)? @ -[No] Was there de-escalation of care discussed even if they declined (Discuss DNR or withdrawal of care, Hospice)? DNR status @ -[No] What co-morbidities impacted this encounter? (DM, HTN, Smoking, COPD, CAD, Cancer, CVA, ARF, Chemo, Hep., AIDS, mental health diagnosis, sleep apnea, morbid obesity)? @ -[Chronic mental health conditions Was patient admitted / discharged? Hospital course, mention meds given and route, prescriptions, significant lab abnormalities, going to OR and other pertinent info. @ -[Patient is admitted for further mental health treatment Undiagnosed new problem with uncertain prognosis? @ -[No] Drug Therapy requiring intensive monitoring for toxicity (Heparin, Nitro, Insulin, Cardizem)? @ -[No] Were any procedures done? @ -[No] Diagnosis/symptom? @ -[Acute exacerbation of chronic mood disorder Suicidal ideation, acute Acute, or Chronic, or Acute on Chronic? @ -[default] Uncomplicated (without systemic symptoms) or Complicated (systemic symptoms)? @ -[Uncomplicated Side effects of treatment? @ -[No] Exacerbation, Progression, or Severe Exacerbation? @ -[No] Poses a threat to life or bodily function? How? (Chest pain, USA, IA, pneumonia, PE, COPD, DKA, ARF, appy, cholecystitis, CVA, Diverticulitis, Homicidal, Suicidal, threat to staff... and all critical care pts) @ -[Yes untreated mental illness may progress to suicide attempt - Lab Data Result diagrams: 06/02/22 09:23 06/02/22 09:23 Lab Results 06/02/22 Range/Units 01:31 Coronavirus (PCR) Not Detected (Not Detectd) Disposition Clinical Impression: Suicidal ideation, Schizoaffective disorder, depressive type Disposition: ADMITTED IP TO THIS HOSP Condition: Stable
[2022-06-02] MEDS ORDERED: MAG HYDROX/AL HYDROX/SIMETH 30 ML CUP PO PRN (02:22)
[2022-06-02] MEDS ORDERED: MAGNESIUM HYDROXIDE 2,400 MG/10 ML CUP PO PRN (02:22)
[2022-06-02] MEDS ORDERED: LORazepam 2 MG/ML INJ IM PRN (02:27)
[2022-06-02] MEDS ORDERED: haloperidoL 5 MG TAB PO PRN (02:29)
[2022-06-02] MEDS ORDERED: HALOPERIDOL LACTATE 5 MG/ML 1 ML VIAL IM PRN (02:29)
[2022-06-02] MEDS: ACETAMINOPHEN TAB 325 MG TAB PO PRN ×3 (04:29→13:16)
[2022-06-02] MEDS: LORazepam 1 MG TAB PO PRN ×3 (04:30→20:31)
[2022-06-02] MEDS: NICOTINE 14MG/24HR PATCH TRANSDERM SCH (08:37)
[2022-06-02 09:05] LABS: Appearance,Urine Clear (Clear); Bilirubin,Urine Negative (Negative); Blood,Urine Negative (Negative); Color,Urine Yellow; Glucose,Urine (UA) Negative (Negative); Ketones,Urine Negative (Negative); Leukocyte Esterase,Urine Negative (Negative); Nitrite,Urine Negative (Negative); Protein,Urine Trace (Negative); Specific Gravity,Urine 1.027 (1.001-1.035)
[2022-06-02 10:22] LABS: ALT 31 U/L (4-49); AST 24 U/L (17-59); African American GFR (CKD) >90 (>60 ml/min/1.73 sqM); Albumin 3.8 g/dL (3.5-5.0); Alkaline Phosphatase 52 U/L (38-126); Anion Gap 7 mmol/L; Bilirubin, Delta 0.1 mg/dL (0.0-0.2); Bilirubin,Unconjugated 0.3 mg/dL (0.0-1.1); Blood Urea Nitrogen 15 mg/dL (9-20); Calcium 9.2 mg/dL (8.4-10.2); Carbon Dioxide 28 mmol/L (22-30); Chloride 104 mmol/L (98-107); Glucose 55 mg/dL (74-99); Non-African American GFR(CKD) >90 (>60 ml/min/1.73 sqM); Potassium 4.7 mmol/L (3.5-5.1); Sodium 139 mmol/L (137-145); Total Bilirubin 0.4 mg/dL (0.2-1.3); Total Protein 6.3 g/dL (6.3-8.2)
[2022-06-02 10:27] LABS: Basophils # (A) 0.1 k/uL (0-0.2); Basophils % (A) 1 %; Eosinophils # (A) 0.1 k/uL (0-0.7); Eosinophils % (A) 2 %; HCT 43.6 % (39.0-53.0); HGB 14.2 gm/dL (13.0-17.5); Lymphocytes # (A) 3.5 k/uL (1.0-4.8); Lymphocytes % (A) 40 %; MCH 30.6 pg (25.0-35.0); MCHC 32.4 g/dL (31.0-37.0); MCV 94.4 fL (80.0-100.0); Mean Platelet Volume 7.5; Monocytes # (A) 0.4 k/uL (0-1.0); Monocytes % (A) 5 %; Neutrophils # (A) 4.5 k/uL (1.3-7.7); Neutrophils % (A) 51 %; Platelet Count 384 k/uL (150-450); RBC 4.62 m/uL (4.30-5.90); RDW 12.8 % (11.5-15.5); WBC 8.7 k/uL (3.8-10.6)
[2022-06-02 11:23] LABS: Glucose,Whole Blood 98 mg/dL (70-110)
[2022-06-02] MEDS: VORTIOXETINE HYDROBROMIDE 20 MG TABLET PO SCH (15:13)
[2022-06-02] MEDS: GABAPENTIN 300 MG CAP PO SCH ×2 (15:14→20:30)
[2022-06-02 16:18] LABS: Chol/HDL Ratio 4.19 Ratio; LDL Cholesterol,Calculated 72.6 mg/dL (0.0-131.0)
[2022-06-02] MEDS: PALIPERIDONE 3 MG TAB.ER.24 PO SCH (20:30)
[2022-06-02 20:36] LABS: Urine Alcohol Negative (Negative); Urine Barbiturate Negative (Negative); Urine Cocaine Positive (Negative); Urine Methadone Negative (Negative); Urine Opiates Negative (Negative); Urine Phencyclidine Negative (Negative)
--- NOTE | 2022-06-02 21:19 | P.HP ---
Psychiatric H&P - . H&P Date: 06/02/22 History & Physical: Allergies Allergy/AdvReac Type Severity Reaction Status Date / Time No Known Allergies Allergy Verified 06/01/22 23:06 Vital Signs Temp 97.2 F L 06/02/22 04:00 Pulse 76 06/02/22 04:00 Resp 18 06/02/22 04:00 BP 111/62 06/02/22 04:00 Pulse Ox 94 L 06/02/22 04:00 FiO2 Intake & Output 06/01/22 06/02/22 06/02/22 18:59 06:59 18:59 Weight 70.307 kg Laboratory Last Values WBC 8.7 k/uL (3.8-10.6) 06/02/22: RBC 4.62 m/uL (4.30-5.90) 06/02/22 09: Hgb 14.2 gm/dL (13.0-17.5) 06/02/22 09: Hct 43.6 % (39.0-53.0) 06/02/22: MCV 94.4 fL (80.0-100.0) 06/02/22 09: MCH 30.6 pg (25.0-35.0) 06/02/22: MCHC 32.4 g/dL (31.0-37.0) 06/02/22: RDW 12.8 % (11.5-15.5) 06/02/22 09:23 Plt Count 384 k/uL (150-450) 06/02/22: MPV 7.5 06/02/22 09: Neutrophils % 51 % 06/02/22 09: Lymphocytes % 40 % 06/02/22: Monocytes % 5 % 06/02/22 09:23 Eosinophils % 2 % 06/02/22: Basophils % 1 % 06/02/22: Neutrophils # 4.5 k/uL (1.3-7.7) 06/02/22 09: Lymphocytes # 3.5 k/uL (1.0-4.8) 06/02/22 09: Monocytes # 0.4 k/uL (0-1.0) 06/02/22 09: Eosinophils # 0.1 k/uL (0-0.7) 06/02/22 09:23 Basophils # 0.1 k/uL (0-0.2) 06/02/22 09:23 Sodium 139 mmol/L (137-145) 06/02/22 09:23 Potassium 4.7 mmol/L (3.5-5.1) 06/02/22 09:23 Chloride 104 mmol/L (98-107) 06/02/22 09:23 Carbon Dioxide 28 mmol/L (22-30) 06/02/22 09:23 Anion Gap 7 mmol/L 06/02/22 09:23 BUN 15 mg/dL (9-20) 06/02/22 09:23 Creatinine 0.94 mg/dL (0.66-1.25) 06/02/22 09:23 Est GFR (CKD-EPI)AfAm >90 (>60 ml/min/1.73 sqM) 06/02/22 09:23 Est GFR (CKD-EPI)NonAf >90 (>60 ml/min/1.73 sqM) 06/02/22 09:23 Glucose 55 mg/dL (74-99) L 06/02/22 09:23 POC Glucose (mg/dL) 98 mg/dL (70-110) 06/02/22 11:21 POC Glu Air Conditioning Insulation Installer Arlen Goodwin 06/02/22 11:21 Calcium 9.2 mg/dL (8.4-10.2) 06/02/22 09:23 Total Bilirubin 0.4 mg/dL (0.2-1.3) 06/02/22 09:23 Conjugated Bilirubin 0.0 mg/dL (0.0-0.3) 06/02/22 09:23 Unconjugated Bilirubin 0.3 mg/dL (0.0-1.1) 06/02/22 09:23 Delta Bilirubin 0.1 mg/dL (0.0-0.2) 06/02/22 09:23 AST 24 U/L (17-59) 06/02/22 09:23 ALT 31 U/L (4-49) 06/02/22 09:23 Alkaline Phosphatase 52 U/L (38-126) 06/02/22 09:23 Total Protein 6.3 g/dL (6.3-8.2) 06/02/22 09:23 Albumin 3.8 g/dL (3.5-5.0) 06/02/22 09:23 TSH 0.677 mIU/L (0.465-4.680) 06/02/22 09:23 Urine Color Yellow 06/02/22 08:32 Urine Appearance Clear (Clear) 06/02/22 08:32 Urine pH 6.0 (5.0-8.0) 06/02/22 08:32 Ur Specific Bruin 1.027 (1.001-1.035) 06/02/22 08:32 Urine Protein Trace (Negative) H 06/02/22 08:32 Urine Glucose (UA) Negative (Negative) 06/02/22 08:32 Urine Ketones Negative (Negative) 06/02/22 08:32 Urine Blood Negative (Negative) 06/02/22 08:32 Urine Nitrite Negative (Negative) 06/02/22 08:32 Urine Bilirubin Negative (Negative) 06/02/22 08:32 Urine Urobilinogen 3.0 mg/dL (<2.0) 06/02/22 08:32 Ur Leukocyte Esterase Negative (Negative) 06/02/22 08:32 Coronavirus (PCR) Not Detected (Not Detectd) 06/02/22 01:31 06/02/22 14:30 IDENTIFYING DATA: Patient is a []41-year-old -[place]ian male, currently lives with his friend in her apartment, has 2 kids, collects SSI. HPI: Patient presented to the hospital yesterday through the ER. patient was claimign at that time that he was experiencing AH and SI. patient apparently has missed and had his [facility] case closed. patient was complianing of not beeing on meds at this time. he was agreeable to speak with contract writer today. he appeared to have a depressed affect, tearful and frustrated. he endorsed hopelessness, worthlessness. he endorsed depression and anxiety. he states that he has been trying to get back into his kids lives but has not been able to due to his drug use and being unstable. he claims that he has also been still greiving his brothers and states that he may beleive that he is not actually as he has not seen his body. he claims that he was feeling more suicidal, cliams that he if he found a gun he would shoot himself. he denies any HI. At this time patient denies any visual hallucinations but does claim that he hears voices arguing with him and as negative in nature. Patient denies any flight of ideas racing thoughts and increased in goal directed behavior. Patient admits to using cannabis, methamphetamine, cigarettes daily. PAST PSYCHIATRIC HISTORY: Patient states that [he has a hx of schizoaffective disorder, polysubstance bause]. [Patient denies being on any psychiatric medications but used to be on several different meds.] [Patients last hospitalization was in 09/2019 on the [facility].] [Patient denies any psychiatric outpatient follow-up but used to f/u with [facility].] claims that he attempted suicide 2 yrs ago by ODing and cutting self. Past Medical History: Deep Vein Thrombosis (DVT) Additional Past Medical History / Comment(s): Sepsis secondary to a left foot infection from stepping on a nail that developed into gangrene of the second, third and fourth toes status post [id number] amputation, R elbow fracture. History of Any Multi-Drug Resistant Organisms: MRSA Date of last positivie culture/infection: 03/20/15 MDRO Source:: Left fourth finger Past Surgical History: Hernia Repair Additional Past Surgical History / Comment(s): Inguinal hernia repair as child (does not recall laterallity). 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 he states that he completed his GED, did some college. he is currently on SSI. he has 2 kids, lives with a friend in an apt. he states that he was in [facility] ago for B and E MENTAL STATUS EXAM: General Appearance: Patient appears to be [clean shaven, artificial leg,] stated age is alert, [directable, and attempts to cooperate]. frustrated and tearful at times. Patient appears to have [poor] hygiene and grooming. Behavior: Patient is seated without any agitated behavior. poor eye contact, tearful Speech: Patient's speech is [fluent and nonpressured.] concrete. Mood/Affect: Patient reports their mood is [depressed], affect is congruent and constricted. Suicidality/Homicidality: Patient denies having any homicidal ideation intent or plan. [Denies any suicidal ideations intent or plan] Perceptions: Patient denies any visual hallucinations [and denies any auditory hallucinations] Though content/process: [There is no evidence of any delusional thought content and thought process is linear and goal-directed.] focused on his sx. Memory and concentration: AOX3, grossly intact for the purposes of this session. Can spell "WORLD" backwards Judgment and insight: [poor] STRENGTHS/WEAKNESSES: strength is that patient is [resilient]. Weakness is that patient [has poor judgment and is impulsive] INTELLECT: [average] IMPRESSIONS: []Schizoaffective disorder depressive type Methamphetamine abuse Cannabis use disorder Nicotine dependence PLAN: -Patient is admitted under [voluntary] status to [facility] for stabilization of psychiatric symptoms and safety. Patient has signed [adult voluntary form and] [medication consent] and is placed in patient's chart. [A second certification was completed and along with petition will be filed for court.] -Medications : Will start patient on []paliperidone by mouth 3 mg daily at bedtime for psychosis/mood stabilization, trintellix 20 mg daily for mood. Neurontin 3 times a day for neuropathic pain. -Ativan [and Haldol] PRN for agitation/aggression [-Patient was counselled on substance abuse and desired to cut back on use] -Patient was informed of the risks, benefits and side effects of the medication and patient verbally consented to taking the medications. Patient signed med consent form and was placed in chart. -Internal Medicine consult to perform medical evaluation and physical. -NRT - [nicotine patch] -SW on board for discharge planning. Encourage patient to participate in groups to work on coping skills. will speak with patient about rehab. 06/02/22 21:11
--- NOTE | 2022-06-03 02:03 | P.PN ---
Progress Note - Text Progress Note Date: 06/02/22 patient continued to sleep ,did not answer any questions, or acknowledge the curriculum writer.
[2022-06-03] MEDS: LORazepam 1 MG TAB PO PRN ×2 (08:27→18:23)
[2022-06-03] MEDS: VORTIOXETINE HYDROBROMIDE 20 MG TABLET PO SCH (08:27)
[2022-06-03] MEDS: NICOTINE 14MG/24HR PATCH TRANSDERM SCH (08:27)
[2022-06-03] MEDS: GABAPENTIN 300 MG CAP PO SCH ×3 (08:27→20:45)
--- NOTE | 2022-06-03 10:29 | P.PN ---
Progress Note - Text Progress Note Date: 06/03/22 Interval History: Patient was seen lying in his bed this morning and was directable and agreeable to speak with commercial loan underwriter in the office. Patient continues to be fairly isolative and states that he has not been going to many groups. He claims that he does feel "a little bit better" today. He states that he is still having depression and does not trust himself. He states that he has been taking his medications and wants to remain at the same dose. He states that he did talk with his sister over the phone yesterday. He claims that he has been up for meals. At this time patient denies any homical ideations, intent or plan. He still claims that he has suicidal thoughts, no intent or plan today. Patient denies any visual hallucinations and denies any paranoia or delusions. He claims that his auditory hallucinations are mildly improving since yesterday. Patient denies any side effects from the medications and has been compliant with meds. Mental Status Exam: General Appearance: Patient appears to be clean shaven, artificial leg, stated age is alert, directable, and attempts to cooperate. Patient appears to have improving hygiene and grooming. Behavior: Patient is seated without any agitated behavior. Improving eye contact, not tearful today Speech: Patient's speech is fluent and nonpressured. concrete. Mood/Affect: Patient reports their mood is depressed, improving mildly, affect is congruent and constricted. Suicidality/Homicidality: Patient denies having any homicidal ideation intent or plan. Denies any suicidal ideations intent or plan Perceptions: Patient denies any visual hallucinations and denies any auditory hallucinations Though content/process: There is no evidence of any delusional thought content and thought process is linear and goal-directed. focused on his sx. Memory and concentration: AOX3, grossly intact for the purposes of this session Judgment and insight: Improving mildly IMPRESSIONS: Schizoaffective disorder depressive type Methamphetamine abuse Cannabis use disorder Nicotine dependence Plan: -Patient continues to meet criteria for inpatient psychiatric admission for symptom stabilization and safety. Patient has signed adult voluntary form and medication consent and was placed in patient's chart. -Medications: paliperidone by mouth 3 mg daily at bedtime for psychosis/mood stabilization, trintellix 20 mg daily for mood. Neurontin 3 times a day for neuropathic pain. -When necessary Ativan and Haldol for agitation/aggression. -NRT - nicotine patch -SW on board for discharge planning. Encouraged the patient to participate in milieu. Likely discharge in 2-3 days, home versus rehab.
[2022-06-03] MEDS: ACETAMINOPHEN TAB 325 MG TAB PO PRN (18:23)
[2022-06-03] MEDS: PALIPERIDONE 3 MG TAB.ER.24 PO SCH (20:45)
--- NOTE | 2022-06-04 00:15 | P.MDCNMH ---
History of Present Illness H&P Date: 06/03/22 Chief Complaint: medical evaluation 41 year old male with history of polysubstance abuse , h/o DVT patient coming in for evaluation of auditory hallucinations, and suicidal i deation, he also admits to using meth about 1 week ago. he also admits to Heroin addiction but has not been using for about 2 months . patient smokes 1 PPD, and rarely drinks a beer. he denies any fever, chills, nausea , vomiting, chest pain , SOB, abd pain. he reports weak urinary stream , hesitancy and nocturia , denies any dysuria or hematuria. he also reports long history of chronic low back pain. Review of Systems Pertinent positives as noted in HPI. All other systems were reviewed and are negative Past Medical History Past Medical History: Deep Vein Thrombosis (DVT) Additional Past Medical History / Comment(s): Sepsis secondary to a left foot infection from stepping on a nail that developed into gangrene of the second, third and fourth toes status post [id number] amputation, R elbow fracture. History of Any Multi-Drug Resistant Organisms: MRSA Date of last positivie culture/infection: 03/20/15 MDRO Source:: Left fourth finger Past Surgical History: Hernia Repair Additional Past Surgical History / Comment(s): Inguinal hernia repair as child (does not recall laterallity). 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 Past Drug Use History: Cocaine, Heroin, IV Drug Use, Marijuana, Methamphetamine, Opiates Additional Drug Use History / Comment(s): Pt states he uses marijuana every day and cocaine twice a month; Pt. states he's been using a lot of Meth lately and occasionally takes Vicodin or [place] off the street for pain in L knee. - Past Family History Father Family Medical History: Cancer Additional Family Medical History / Comment(s): Father of throat cancer at the age of 68yrs. He was a smoker. Mother Family Medical History: Cancer Additional Family Medical History / Comment(s): Mother had lung cancer. She of this at the age of 50yrs. She was a smoker. Brother(s) Family Medical History: No Reported History Additional Family Medical History / Comment(s): He has one brother that is 40 years of age with no major medical problems. Sister(s) Family Medical History: No Reported History Additional Family Medical History / Comment(s): He has one sister that is 39 years of age and does not have any major medical problems. Patient has 2 sons that are currently living with their mother. Medications and Allergies Home Medications Medication Instructions Recorded Confirmed Type Gabapentin [Neurontin] 300 mg PO QID 30 Days #120 cap 10/11/19 06/02/22 Rx Mirtazapine [Remeron] 30 mg PO HS 30 Days #60 tab 10/11/19 06/02/22 Rx Paliperidone [Invega] 6 mg PO HS 30 Days #30 tab.er.24 10/11/19 06/02/22 Rx Allergies Allergy/AdvReac Type Severity Reaction Status Date / Time No Known Allergies Allergy Verified 06/01/22 23:06 Physical Exam Vitals: Vital Signs Temp Pulse Resp BP 06/03/22 06:49 98 F 67 14 118/74 Constitutional: No acute distress, conversant, pleasant Eyes: Anicteric sclerae, moist conjunctiva, Pupils equal round reactive to light ENMT: NC/AT Oropharynx clear, no erythema, or exudates Neck: Supple, no masses, or JVD No carotid bruits No thyromegaly Lungs: Clear to auscultation Clear to percussion Normal respiratory effort, no accessory muscle use Cardiovascular: Heart regular in rate and rhythm, No murmurs, gallops, or rubs No peripheral edema Abdominal: Soft Nontender, no guarding, rebound or rigidity Abdomen moving with respiration Normoactive bowel sounds No hepatomegaly, No splenomegaly No palpable mass No abdominal wall hernia noted Skin: Normal temperature, tone, texture, turgor No induration No subcutaneous nodules No rash, lesions No ulcers Extremities: left BKA No digital cyanosis No clubbing Radial pulses intact and symmetrical No calf tenderness Psychiatric: Alert and oriented to person, place and time Appropriate affect fair judgment Neuro Muscles Strength 5/5 in all 4 extremities Sensation to light touch grossly present throughout Cranial nerves II-XII grossly intact Lymphatics: no palpable cervical or supraclavicular lymph nodes Cranial Nerve Examination - Cranial Nerves Cranial Nerve II- Optic: Intact Cranial Nerve III- Oculomotor: Intact Cranial Nerve IV- Trochlear: Intact Cranial Nerve V- Trigeminal: Intact Cranial Nerve - Abducens: Intact Cranial Nerve VII- Facial: Intact Cranial Nerve VIII- Auditory: Intact Cranial Nerve IX- Glossopharyngeal: Intact Cranial Nerve X- Vagus: Intact Cranial Nerve XI- Accessory: Intact Cranial Nerve XII- Hypoglossal: Intact Results CBC & Chem 7: 06/02/22 09:23 06/02/22 09:23 Assessment and Plan Assessment: auditory hallucination, suicidal ideation management per psych BPH initiate on flomax 0.4 mg once qhs consider age appropriate cancer screening , colonoscopy and low dose chest CT as discussed with the patient , this should be arranged with his PCP as OP blood work reviewed overall unremarkable , UA unremarkable thank you for this consultation
[2022-06-04] MEDS: TAMSULOSIN 0.4 MG CAP.ER.24H PO SCH ×2 (01:06→18:33)
[2022-06-04] MEDS: VORTIOXETINE HYDROBROMIDE 20 MG TABLET PO SCH (07:49)
[2022-06-04] MEDS: NICOTINE 14MG/24HR PATCH TRANSDERM SCH (07:49)
[2022-06-04] MEDS: GABAPENTIN 300 MG CAP PO SCH ×3 (07:49→20:40)
--- NOTE | 2022-06-04 11:27 | P.PN ---
Progress Note - Text Progress Note Date: 06/04/22 Interval History: Patient was seen lying in his bed this morning and was directable and agreeable to speak with typewriter aligner in the office. Patient claims that he is still not been going to groups however we'll try to go to some today. He states that he did sleep a little bit better last night however did take Ativan. We spoke about other options and he was agreeable to try trazodone tonight. He states that the medications have been slowly helping him and he feels a little bit less depressed today. He claims that his anxiety is also improving. He states that his appetite is also improving. Claims that he is sleeping. We spoke about rehab and he states that he will call the access line today. Patient denies any auditory or visual hallucinations and denies any paranoia or delusions. At this time patient is denying any suicidal or homicidal ideations intent or plan Patient denies any side effects from the medications and has been compliant with meds. Mental Status Exam: General Appearance: Patient appears to be clean shaven, artificial leg, stated age is alert, directable, and attempts to cooperate. Patient appears to have improving hygiene and grooming. Behavior: Patient is seated without any agitated behavior. Improving eye contact, not tearful today Speech: Patient's speech is fluent and nonpressured. concrete, improving mildly Mood/Affect: Patient reports their mood is improving mildly, affect is congruent Suicidality/Homicidality: Patient denies having any homicidal ideation intent or plan. Denies any suicidal ideations intent or plan Perceptions: Patient denies any visual hallucinations and denies any auditory hallucinations Though content/process: There is no evidence of any delusional thought content and thought process is linear and goal-directed. less focused on his sx. Memory and concentration: AOX3, grossly intact for the purposes of this session Judgment and insight: Improving mildly IMPRESSIONS: Schizoaffective disorder depressive type Methamphetamine abuse Cannabis use disorder Nicotine dependence Plan: -Patient continues to meet criteria for inpatient psychiatric admission for symptom stabilization and safety. Patient has signed adult voluntary form and medication consent and was placed in patient's chart. -Medications: increase paliperidone by mouth 6 mg daily at bedtime for psychosis/mood stabilization, trintellix 20 mg daily for mood. Neurontin 3 times a day for neuropathic pain. added trazodone 50 mg prn qhs for sleep/mood. -When necessary Ativan and Haldol for agitation/aggression. -NRT - nicotine patch -SW on board for discharge planning. Encouraged the patient to participate in milieu. Likely discharge in 1-2 days. patient will call access line today for rehab.
[2022-06-04] MEDS: IBUPROFEN 400 MG TAB PO PRN (11:46)
[2022-06-04] MEDS: LORazepam 1 MG TAB PO PRN ×3 (11:46→23:31)
[2022-06-04] MEDS: ACETAMINOPHEN TAB 325 MG TAB PO PRN (11:47)
[2022-06-04] MEDS: PALIPERIDONE 6 MG TAB.ER.24 PO SCH (20:40)
[2022-06-04] MEDS: traZODone HCL 50 MG TAB PO PRN (21:03)
[2022-06-05] MEDS: NICOTINE 14MG/24HR PATCH TRANSDERM SCH (08:41)
[2022-06-05] MEDS: GABAPENTIN 300 MG CAP PO SCH ×3 (08:41→20:32)
[2022-06-05] MEDS: VORTIOXETINE HYDROBROMIDE 20 MG TABLET PO SCH (08:41)
--- NOTE | 2022-06-05 10:19 | P.PN ---
Progress Note - Text Progress Note Date: 06/05/22 Interval History: Patient was seen lying in his bed this morning and was directable and agreeable to speak with advertising copywriter in the office. Patient claims that he has been going to some groups however was fairly vague about it. He states that overall he is doing a bit better since yesterday. States that he is able to sleep better last night with the increased dose of paliperidone. He states that his depression and anxiety of the mildly improving. He claims that he has been having an increase in his appetite. He claims that he has not spoken with the access line yet but continues to want to go to rehab. Patient denies any auditory or visual hallucinations and denies any paranoia or delusions. At this time patient is denying any suicidal or homicidal ideations intent or plan Patient denies any side effects from the medications and has been compliant with meds. Mental Status Exam: General Appearance: Patient appears to be clean shaven, artificial leg, stated age is alert, directable, and attempts to cooperate. Patient appears to have improving hygiene and grooming. Behavior: Patient is seated without any agitated behavior. Improving eye contact Speech: Patient's speech is fluent and nonpressured. concrete, improving mildly Mood/Affect: Patient reports their mood is improving mildly, affect is congruent Suicidality/Homicidality: Patient denies having any homicidal ideation intent or plan. Denies any suicidal ideations intent or plan Perceptions: Patient denies any visual hallucinations and denies any auditory hallucinations Though content/process: There is no evidence of any delusional thought content and thought process is linear and goal-directed. less focused on his sx. Memory and concentration: AOX3, grossly intact for the purposes of this session Judgment and insight: Improving mildly IMPRESSIONS: Schizoaffective disorder depressive type Methamphetamine abuse Cannabis use disorder Nicotine dependence Plan: -Patient continues to meet criteria for inpatient psychiatric admission for symptom stabilization and safety. Patient has signed adult voluntary form and medication consent and was placed in patient's chart. -Medications: paliperidone by mouth 6 mg daily at bedtime for psychosis/mood stabilization, trintellix 20 mg daily for mood. Neurontin 3 times a day for neuropathic pain. trazodone 50 mg prn qhs for sleep/mood. -When necessary Ativan and Haldol for agitation/aggression. -NRT - nicotine patch -SW on board for discharge planning. Encouraged the patient to participate in milieu. Likely discharge Wednesday if patient continues to improve. patient will call access line today for rehab.
[2022-06-05] MEDS: ACETAMINOPHEN TAB 325 MG TAB PO PRN (13:47)
[2022-06-05] MEDS: LORazepam 1 MG TAB PO PRN ×2 (13:47→21:48)
[2022-06-05] MEDS: IBUPROFEN 400 MG TAB PO PRN (13:47)
[2022-06-05] MEDS: TAMSULOSIN 0.4 MG CAP.ER.24H PO SCH (17:44)
[2022-06-05] MEDS: traZODone HCL 50 MG TAB PO PRN (20:32)
[2022-06-05] MEDS: PALIPERIDONE 6 MG TAB.ER.24 PO SCH (20:32)
[2022-06-06] MEDS: VORTIOXETINE HYDROBROMIDE 20 MG TABLET PO SCH (08:38)
[2022-06-06] MEDS: NICOTINE 14MG/24HR PATCH TRANSDERM SCH (08:39)
[2022-06-06] MEDS: GABAPENTIN 300 MG CAP PO SCH ×3 (08:39→20:40)
[2022-06-06] MEDS: LORazepam 1 MG TAB PO PRN ×3 (08:40→20:41)
[2022-06-06] MEDS: IBUPROFEN 400 MG TAB PO PRN (12:07)
[2022-06-06] MEDS: ACETAMINOPHEN TAB 325 MG TAB PO PRN (16:01)
--- NOTE | 2022-06-06 17:22 | P.PN ---
Progress Note - Text Progress Note Date: 06/06/22 Interval History: Patient was seen lying in his bed this morning and was directable and agreeable to speak with commercial loan underwriter. He states that overall he is doing a bit better since yesterday. States that he is able to sleep better last night with paliperidone and trazodone. He states that his depression and anxiety of the mildly improving. He claims that he has been having an increase in his appetite. He demonstrates vague interest in sobriety and says he is considering rehab. He later requests this provider for "something stronger" for LBP and was directed to take Tylenol or ibuprofen PRN. Patient denies any auditory or visual hallucinations and denies any paranoia or delusions. At this time patient is denying any suicidal or homicidal ideation intent or plan Patient denies any side effects from the medications and has been compliant with meds. Mental Status Exam: General Appearance: Patient appears to be clean shaven, artificial leg, stated age is alert, directable, and attempts to cooperate. Patient appears to have improving hygiene and grooming. Behavior: Patient is seated without any agitated behavior. Improving eye contact Speech: Patient's speech is fluent and nonpressured. concrete, improving mildly Mood/Affect: Patient reports their mood is improving mildly, affect is congruent Suicidality/Homicidality: Patient denies having any homicidal ideation intent or plan. Denies any suicidal ideations intent or plan Perceptions: Patient denies any visual hallucinations and denies any auditory hallucinations Though content/process: There is no evidence of any delusional thought content and thought process is linear and goal-directed. Memory and concentration: AOX3, grossly intact for the purposes of this session Judgment and insight: Improving mildly IMPRESSIONS: Schizoaffective disorder depressive type Methamphetamine abuse Cannabis use disorder Nicotine dependence Plan: -Patient continues to meet criteria for inpatient psychiatric admission for symptom stabilization and safety. Patient has signed adult voluntary form and medication consent and was placed in patient's chart. -Medications: paliperidone by mouth 6 mg daily at bedtime for psychosis/mood stabilization, trintellix 20 mg daily for mood. Neurontin 3 times a day for neuropathic pain. trazodone 50 mg prn qhs for sleep/mood. -When necessary Ativan and Haldol for agitation/aggression. -NRT - nicotine patch -SW on board for discharge planning. Encouraged the patient to participate in milieu. Likely discharge Wednesday if patient continues to improve. patient interested in rehab - asked to call access line
[2022-06-06] MEDS: TAMSULOSIN 0.4 MG CAP.ER.24H PO SCH (18:31)
[2022-06-06] MEDS: PALIPERIDONE 6 MG TAB.ER.24 PO SCH (20:40)
[2022-06-06] MEDS: traZODone HCL 50 MG TAB PO PRN (20:40)
[2022-06-07] MEDS: VORTIOXETINE HYDROBROMIDE 20 MG TABLET PO SCH (08:45)
[2022-06-07] MEDS: GABAPENTIN 300 MG CAP PO SCH ×3 (08:45→20:30)
[2022-06-07] MEDS: NICOTINE 14MG/24HR PATCH TRANSDERM SCH (08:45)
[2022-06-07] MEDS: LORazepam 1 MG TAB PO PRN ×2 (08:46→20:29)
[2022-06-07] MEDS: IBUPROFEN 400 MG TAB PO PRN (09:43)
--- NOTE | 2022-06-07 09:59 | P.PN ---
Progress Note - Text Progress Note Date: 06/07/22 Interval History: Patient was seen wandering the halls and was directable and agreeable to speak with headline writer. He states that his mood is "very good" and denies depression. States that he is able to sleep better last night with paliperidone and trazodone. He says that he has been on many medications in the past but that this combination has been working very well for him. Patient continues to have very poor insight into substance use and during motivational interviewing he says that he enjoys the methamphetamine high. However, he does endorse that this has been creating trouble for him including worsening the auditory hallucinations. Patient currently expresses that he is no longer interested in inpatient rehab and would like to do outpatient Narcotics Anonymous meetings. He says that he is never attended outpatient meetings before and feels that might be more helpful in helping him maintain sobriety. Discussed the recommendation of doing inpatient rehab and outpatient Na meetings but patient was not interested in this and said that inpatient rehab has not been helpful for him in the past. Patient denies any auditory or visual hallucinations and denies any paranoia or delusions. At this time patient is denying any suicidal or homicidal ideation intent or plan Patient denies any side effects from the medications and has been compliant with meds. Mental Status Exam: General Appearance: Patient appears to be clean shaven, artificial leg, stated age is alert, directable, and attempts to cooperate. Patient appears to have improving hygiene and grooming. Behavior: Patient is seated without any agitated behavior. Improving eye contact Speech: Patient's speech is fluent and nonpressured. concrete, improving mildly Mood/Affect: Patient reports their mood is improving mildly, affect is congruent Suicidality/Homicidality: Patient denies having any homicidal ideation intent or plan. Denies any suicidal ideations intent or plan Perceptions: Patient denies any visual hallucinations and denies any auditory hallucinations Though content/process: There is no evidence of any delusional thought content and thought process is linear and goal-directed. Memory and concentration: AOX3, grossly intact for the purposes of this session Judgment and insight: Improving mildly IMPRESSIONS: Schizoaffective disorder depressive type Methamphetamine abuse Cannabis use disorder Nicotine dependence Plan: -Patient continues to meet criteria for inpatient psychiatric admission for symptom stabilization and safety. Patient has signed adult voluntary form and medication consent and was placed in patient's chart. -Medications: paliperidone by mouth 6 mg daily at bedtime for psychosis/mood stabilization, trintellix 20 mg daily for mood. Neurontin 3 times a day for neuropathic pain. trazodone 50 mg prn qhs for sleep/mood. -When necessary Ativan and Haldol for agitation/aggression. -NRT - nicotine patch -SW on board for discharge planning. Encouraged the patient to participate in milieu. Likely discharge Wednesday if patient continues to improve. Patient not interested in inpatient rehab and would like to do outpatient substance use programs through [facility] and
[2022-06-07] MEDS: TAMSULOSIN 0.4 MG CAP.ER.24H PO SCH (18:00)
[2022-06-07] MEDS: PALIPERIDONE 6 MG TAB.ER.24 PO SCH (20:30)
[2022-06-07] MEDS: traZODone HCL 50 MG TAB PO PRN (20:30)
[2022-06-08 06:44] VITALS: TEMP 98.2
[2022-06-08] MEDS: GABAPENTIN 300 MG CAP PO SCH ×3 (08:39→20:32)
[2022-06-08] MEDS: VORTIOXETINE HYDROBROMIDE 20 MG TABLET PO SCH (08:40)
[2022-06-08] MEDS: IBUPROFEN 400 MG TAB PO PRN (08:40)
[2022-06-08] MEDS: NICOTINE 14MG/24HR PATCH TRANSDERM SCH (08:41)
[2022-06-08] MEDS: LORazepam 1 MG TAB PO PRN ×2 (08:41→20:32)
--- NOTE | 2022-06-08 10:20 | P.PN ---
Progress Note - Text Progress Note Date: 06/08/22 Interval History: Patient was seen wandering the hallways this morning and was directable and ag reeable to speak with underwriter mortgage loan in the office. Patient claims that he has been going to some groups, states that the weekend went a bit better for him. He states that his mood is gradually improving and claims that he still has some anxiety during the day. He asked about other pain medications. He claims that the paliperidone has been helping significantly in the spoke about the need for compliance and patient was agreeable to try and be transitioned onto long-acting injection perseris today. He claims that he has been sleeping a bit better. He claims that he has been having an increase in his appetite. Patient denies any auditory or visual hallucinations and denies any paranoia or delusions. At this time patient is denying any suicidal or homicidal ideations intent or plan Patient denies any side effects from the medications and has been compliant with meds. Mental Status Exam: General Appearance: Patient appears to be clean shaven, artificial leg, stated age is alert, directable, and attempts to cooperate. Patient appears to have improving hygiene and grooming. Behavior: Patient is seated without any agitated behavior. Improving eye contact Speech: Patient's speech is fluent and nonpressured. concrete, improving mildly Mood/Affect: Patient reports their mood is improving mildly, affect is congruent Suicidality/Homicidality: Patient denies having any homicidal ideation intent or plan. Denies any suicidal ideations intent or plan Perceptions: Patient denies any visual hallucinations and denies any auditory hallucinations Though content/process: There is no evidence of any delusional thought content and thought process is linear and goal-directed. less focused on his sx. Memory and concentration: AOX3, grossly intact for the purposes of this session Judgment and insight: Improving mildly IMPRESSIONS: Schizoaffective disorder depressive type Methamphetamine abuse Cannabis use disorder Nicotine dependence Plan: -Patient continues to meet criteria for inpatient psychiatric admission for symptom stabilization and safety. Patient has signed adult voluntary form and medication consent and was placed in patient's chart. -Medications: d/c oral paliperidone and give PErseris SANTANA 120 mg today to help with compliance. trintellix 20 mg daily for mood. Neurontin 3 times a day for neuropathic pain. trazodone 50 mg prn qhs for sleep/mood. -When necessary Ativan and Haldol for agitation/aggression. -NRT - nicotine patch -SW on board for discharge planning. Encouraged the patient to participate in milieu. Likely discharge tomorrow as patient is being transitioned onto SANTANA.
[2022-06-08] MEDS ORDERED: risperiDONE 120 MG SYR (NO COST) PHARMACY STOCK SQ ONE (11:00)
[2022-06-08] MEDS: TAMSULOSIN 0.4 MG CAP.ER.24H PO SCH (18:06)
[2022-06-08] MEDS: traZODone HCL 50 MG TAB PO PRN (20:32)
[2022-06-09 06:49] VITALS: BP 129/69; PULSE 71; RESP 17
[2022-06-09] MEDS: GABAPENTIN 300 MG CAP PO SCH (08:14)
[2022-06-09] MEDS: VORTIOXETINE HYDROBROMIDE 20 MG TABLET PO SCH (08:14)
[2022-06-09] MEDS: NICOTINE 14MG/24HR PATCH TRANSDERM SCH (08:14)
--- NOTE | 2022-06-09 10:11 | P.DS ---
Providers Date of admission: 06/02/22 02:18 Expected date of discharge: 06/09/22 Attending physician: Oziel Bethea MD Consults: 06/02/22 02:22 Consult Physician Routine Consulting Provider: Camron Physician Consult Reason/Comments: For H & P for Medical Follow Up Do you want consulting provider notified?: Yes Primary care physician: [facility] - Discharge Diagnosis(es) (1) Schizoaffective disorder, depressive type Current Visit: Yes Status: Acute Priority: High (2) Methamphetamine abuse Current Visit: Yes Status: Acute Priority: High (3) Cannabis use disorder Current Visit: Yes Status: Acute Priority: Medium (4) Nicotine dependence Current Visit: Yes Status: Acute Priority: Low Hospital Course: Admission HPI: Admission note was completed by chief underwriter "Patient is a 41-year-old - [place] male, currently lives with his friend in her apartment, has 2 kids, collects SSI. Patient presented to the hospital yesterday through the ER. patient was claimign at that time that he was experiencing AH and SI. patient apparently has missed and had his [facility] case closed. patient was complianing of not beeing on meds at this time. he was agreeable to speak with chief underwriter today. he appeared to have a depressed affect, tearful and frustrated. he endorsed hopelessness, worthlessness. he endorsed depression and anxiety. he states that he has been trying to get back into his kids lives but has not been able to due to his drug use and being unstable. he claims that he has also been still greiving his brothers and states that he may beleive that he is not actually as he has not seen his body. he claims that he was feeling more suicidal, cliams that he if he found a gun he would shoot himself. he denies any HI. At this time patient denies any visual hallucinations but does claim that he hears voices arguing with him and as negative in nature. Patient denies any flight of ideas racing thoughts and increased in goal directed behavior. Pat humberto admits to using cannabis, methamphetamine, cigarettes daily." Hospital course: Upon admission to the unit patient was directable and agreeable to commence treatment and signed adult voluntary form . Patient was initially fairly isolative however with treatment in time he got along well with other patients on the unit and followed unit protocol. Patient was compliant with the medications and denied any side effects throughout hospital course. Patient was started on trazodone when necessary for sleep, paliperidone by mouth 6 mg for psychosis/mood stabilization. Patient was transitioned onto perseris SQ 120 mg given on 06/08 and next dose will be due at [facility] on 07/06/22. trintellix 20 mg daily for mood. Patient spoke of his stressors and engaged in therapy both group and individual. Patient was also seen by medical team for history and physical exam. Throughout the course of the hospitalization patient gradually improved with regards to mood, anxiety, psychosis/hallucinations, sleep and became more future oriented with improved insight and judgment. On the day of discharge patient denied any suicidal or homicidal ideations intent or plan denied any auditory or visual hallucinations. Patient endorsed wanting to live for his health and family. The patient denied any access to guns or weapons. Patient denied any paranoia and did not endorse any delusions. Patient does hav e a significant history of substance abuse and was counseled on abstaining from all substances including alcohol and marijuana. Patient elected to do outpatient substance use treatment program through [facility] and took the number for the access line however has not made the call at this time. Patient was also counseled on the medications and need for regular compliance and was encouraged to follow-up with their outpatient appointment for mental health and also for primary care. Mental status exam: General Appearance: Patient appears to have an artificial leg, be stated age is alert, pleasant, and cooperative. Patient is in no acute distress and has improved hygiene and grooming Behavior: Patient is calmly seated without any agitated behavior. Speech: Patient's speech is fluent and nonpressured. Mood/Affect: Patient reports their mood is "better", affect is congruent and euthymic. Suicidality/Homicidality: Patient denies having any suicidal or homicidal ideation intent or plan. Perceptions: Patient denies any auditory or visual hallucinations. Though content/process: There is no evidence of any delusional thought content and thought process is linear and goal-directed. more future oriented Memory and concentration: AOX3, grossly intact for the purposes of this session. Can spell "WORLD" backwards correctly. Judgment and insight: improved with guarded prognosis Impression: Schizoaffective disorder, depressive type Methamphetamine abuse Cannabis use disorder Nicotine dependence Plan: -Continue with discharge today as patient has improved and stabilized psychiatrically and is not currently an imminent threat to himself and/or others. Patient will remain at chronically elevated risk for harm to self and/or others due to his impulsivity and substance abuse. -Continue medications: Patient was transitioned onto perseris SQ 120 mg given on 06/08 and next dose will be due at [facility] on 07/06/22. d/c oral invega. trazoodne 50 mg qhs prn for insomnia. -Patient was counseled on the need for medication compliance and appropriate follow-up at mental health and also primary care for medical issues. Patient verbalized understanding and agreed. -Social work to arrange for and conduct family meeting to ensure safety upon discharge and answer any questions/concerns. Social work also to arrange for patients follow up appointments with [facility] for psychiatric care along with follow up with primary care provider. -Patient counseled on abstaining from recreational drugs and marijuana and alcohol. Was informed/educated on the adverse effects on their physical and mental health. Patient verbally agreed and understood. -Patient was instructed to return to the hospital or seek immediate medical care if their psychiatric or medical symptoms do worsen or reoccur. Allergies Allergy/AdvReac Type Severity Reaction Status Date / Time No Known Allergies Allergy Verified 06/01/22 23:06 Laboratory Results WBC 8.7 k/uL (3.8-10.6) 06/02/22 09: RBC 4.62 m/uL (4.30-5.90) 06/02/22 09:23 Hgb 14.2 gm/dL (13.0-17.5) 06/02/22: Hct 43.6 % (39.0-53.0) 06/02/22 09:23 MCV 94.4 fL (80.0-100.0) 06/02/22: MCH 30.6 pg (25.0-35.0) 06/02/22: MCHC 32.4 g/dL (31.0-37.0) 06/02/22 09: RDW 12.8 % (11.5-15.5) 06/02/22 09:23 Plt Count 384 k/uL (150-450) 06/02/22 09: MPV 7.5 06/02/22 09:23 Neutrophils % 51 % 06/02/22 09:23 Lymphocytes % 40 % 06/02/22 09:23 Monocytes % 5 % 06/02/22 09:23 Eosinophils % 2 % 06/02/22 09: Basophils % 1 % 06/02/22 09:23 Neutrophils # 4.5 k/uL (1.3-7.7) 06/02/22 09:23 Lymphocytes # 3.5 k/uL (1.0-4.8) 06/02/22 09: Monocytes # 0.4 k/uL (0-1.0) 06/02/22 09:23 Eosinophils # 0.1 k/uL (0-0.7) 06/02/22 09: Basophils # 0.1 k/uL (0-0.2) 06/02/22 09:23 Sodium 139 mmol/L (137-145) 06/02/22 09:23 Potassium 4.7 mmol/L (3.5-5.1) 06/02/22 09:23 Chloride 104 mmol/L (98-107) 06/02/22 09:23 Carbon Dioxide 28 mmol/L (22-30) 06/02/22 09:23 Anion Gap 7 mmol/L 06/02/22 09:23 BUN 15 mg/dL (9-20) 06/02/22 09:23 Creatinine 0.94 mg/dL (0.66-1.25) 06/02/22 09:23 Est GFR (CKD-EPI)AfAm >90 (>60 ml/min/1.73 sqM) 06/02/22 09:23 Est GFR (CKD-EPI)NonAf >90 (>60 ml/min/1.73 sqM) 06/02/22 09:23 Glucose 55 mg/dL (74-99) L 06/02/22 09:23 POC Glucose (mg/dL) 98 mg/dL (70-110) 06/02/22 11:21 POC Glu Billing Department Supervisor WILLIAM Arlen Olivera 06/02/22 11:[address] Glu mg/dL 113 06/02/22 09:23 Hemoglobin A1c 5.6 % (0.0-6.0) 06/02/22 09:23 Calcium 9.2 mg/dL (8.4-10.2) 06/02/22 09:23 Total Bilirubin 0.4 mg/dL (0.2-1.3) 06/02/22: Conjugated Bilirubin 0.0 mg/dL (0.0-0.3) 06/02/22: Unconjugated Bilirubin 0.3 mg/dL (0.0-1.1) 06/02/22: Delta Bilirubin 0.1 mg/dL (0.0-0.2) 06/02/22:23 AST 24 U/L (17-59) 06/02/22: ALT 31 U/L (4-49) 06/02/22: Alkaline Phosphatase 52 U/L (38-126) 06/02/22: Total Protein 6.3 g/dL (6.3-8.2) 06/02/22: Albumin 3.8 g/dL (3.5-5.0) 06/02/22 09: Triglycerides 170.00 mg/dL (0.00-149.00) H 06/02/22: Cholesterol 140.00 mg/dL (0.00-200.00) 06/02/22: LDL Cholesterol, Calc 72.6 mg/dL (0.0-131.0) 06/02/22: VLDL Cholesterol, Calc 34.00 mg/dL (5.00-40.00) 06/02/22: HDL Cholesterol 33.40 mg/dL (40.00-60.00) L 06/02/22: Cholesterol/HDL Ratio 4.19 Ratio 06/02/22: TSH 0.677 mIU/L (0.465-4.680) 06/02/22:23 Urine Color Yellow 06/02/22 08:32 Urine Appearance Clear (Clear) 06/02/22 08:32 Urine pH 6.0 (5.0-8.0) 06/02/22 08:32 Ur Specific [place] 1.027 (1.001-1.035) 06/02/22 08:32 Urine Protein Trace (Negative) H 06/02/22 08:32 Urine Glucose (UA) Negative (Negative) 06/02/22 08:32 Urine Ketones Negative (Negative) 06/02/22 08:32 Urine Blood Negative (Negative) 06/02/22 08:32 Urine Nitrite Negative (Negative) 06/02/22 08:32 Urine Bilirubin Negative (Negative) 06/02/22 08:32 Urine Urobilinogen 3.0 mg/dL (<2.0) 06/02/22 08:32 Ur Leukocyte Esterase Negative (Negative) 06/02/22 08:32 Urine Opiates Screen Negative (Negative) 06/02/22 08:32 Urine Methadone Screen Negative (Negative) 06/02/22 08:32 Ur Propoxyphene Screen Negative (Negative) 06/02/22 08:32 Urine Barbiturates Negative (Negative) 06/02/22 08:32 Ur Phencyclidine Scrn Negative (Negative) 06/02/22 08:32 Ur Amphetamine Screen Positive (Negative) A 06/02/22 08:32 U Benzodiazepines Scrn Negative (Negative) 06/02/22 08:32 Urine Cocaine Screen Positive (Negative) A 06/02/22 08:32 U Cannabinoids Screen Positive (Negative) A 06/02/22 08:32 Urine Alcohol Negative (Negative) 06/02/22 08:32 Coronavirus (PCR) Not Detected (Not Detectd) 06/02/22 01:31 Vital Signs Temp 98.2 F 06/09/22 06:00 Pulse 71 06/09/22 06:00 Resp 17 06/09/22 06:00 BP 129/69 06/09/22 06:00 Pulse Ox 96 06/09/22 06:00 FiO2 Patient Condition at Discharge: Stable Plan - Discharge Summary Discharge Rx Participant: Yes New Discharge Prescriptions: New Tamsulosin [Flomax] 0.4 mg PO PC-SUPPER 30 Days #30 cap Nicotine 14Mg/24Hr Patch [Habitrol] 1 patch TRANSDERM DAILY 14 Days #14 patch Ibuprofen [Motrin] 400 mg PO Q6HR PRN tab PRN Reason: Pain Vortioxetine Hydrobromide [Trintellix] 20 mg PO DAILY 30 Days #30 tab risperiDONE ER inj [Perseris] 120 mg SQ QMONTHLY #1 each traZODone HCL [Desyrel] 50 mg PO HS PRN 30 Days #30 tab PRN Reason: Insomnia Gabapentin [Neurontin] 300 mg PO TID 30 Days #90 cap Acetaminophen Tab [Tylenol] 650 mg PO Q4HR PRN tab PRN Reason: Pain/Discomfort Discontinued Paliperidone [Invega] 6 mg PO HS 30 Days #30 tab.er.24 Gabapentin [Neurontin] 300 mg PO QID 30 Days #120 cap Mirtazapine [Remeron] 30 mg PO HS 30 Days #60 tab Discharge Medication List Acetaminophen Tab [Tylenol] 650 mg PO Q4HR PRN tab 06/09/22 [Rx] Gabapentin [Neurontin] 300 mg PO TID 30 Days #90 cap 06/09/22 [Rx] Ibuprofen [Motrin] 400 mg PO Q6HR PRN tab 06/09/22 [Rx] Nicotine 14Mg/24Hr Patch [Habitrol] 1 patch TRANSDERM DAILY 14 Days #14 patch 06/09/22 [Rx] Tamsulosin [Flomax] 0.4 mg PO PC-SUPPER 30 Days #30 cap 06/09/22 [Rx] Vortioxetine Hydrobromide [Trintellix] 20 mg PO DAILY 30 Days #30 tab 06/09/22 [Rx] risperiDONE ER inj [Perseris] 120 mg SQ QMONTHLY #1 each 06/09/22 [Rx] traZODone HCL [Desyrel] 50 mg PO HS PRN 30 Days #30 tab 06/09/22 [Rx] Follow up Appointment(s)/Referral(s): [facility] [Outside] - 06/15/22 9:00 am (06/15/2022 9:00AM - 10:00AM BALJINDER JENSEN 06/17/2022 9:00AM - 9:30AM JOSUE CHING ) [facility] [Primary Care Provider] - 1-2 days Activity/Diet/Wound Care/Special Instructions: Avoid the use of street drugs and alcohol. Take all medications as prescribed. When you are in need of refills on your medications, please contact your medical provider and/or outpatient psychiatrist to have this done. Please go to scheduled outpatient appointments for aftercare treatment. If symptoms return or become worse, call the crisis line at and/or go to the nearest emergency room for evaluation. Discharge Disposition: HOME SELF-CARE
[2022-06-09] MEDS: LORazepam 1 MG TAB PO PRN (10:41)
== END 2022-06-09 12:15 | disposition home or self-care (01) | DRG 750 ==
LOC: EC 22:44 → 3MHU 06-02 02:18
PROVIDERS: ADMIT Psychiatry & Neurology Psychiatry; ATTEND Psychiatry & Neurology Psychiatry
DX: F25.1 Schizoaffective disorder, depressive type (principal); R45.851 Suicidal ideations; F15.10 Other stimulant abuse, uncomplicated; Z20.822 Contact with and (suspected) exposure to COVID-19; F41.9 Anxiety disorder, unspecified; F14.91 Cocaine use, unspecified, in remission; F11.91 Opioid use, unspecified, in remission; G62.9 Polyneuropathy, unspecified; R39.12 Poor urinary stream; R39.11 Hesitancy of micturition; R35.1 Nocturia; G89.29 Other chronic pain; M54.50 Low back pain, unspecified; F17.210 Nicotine dependence, cigarettes, uncomplicated; Z86.14 Personal history of Methicillin resistant Staphylococcus aureus infection; Z63.8 Other specified problems related to primary support group; Z63.4 Disappearance and death of family member; Z91.51 Personal history of suicidal behavior; Z89.512 Acquired absence of left leg below knee; Z97.14 Presence of artificial left leg (complete) (partial)
CPT/HCPCS: 80053; 80061; 80306; 81003; 82075; 82248; 83036; 84443; 85025; 87635; 99285

== ENCOUNTER 2022-08-05 08:26 | Emergency (ER) | payer OTHER ==
--- NOTE | 2022-08-05 08:40 | ED ---
General Adult HPI - General Stated complaint: overdoes Time Seen by Provider: 08/05/22 08:33 Source: patient, EMS Mode of arrival: EMS Limitations: no limitations - History of Present Illness Initial comments: Patient is a pleasant 41-year-old male presenting to the emergency department with concern for overdose. Patient reportedly overdosed on heroin and patient agrees with this. Patient does admit to using intravenous heroin. Patient reportedly received 4 nasal followed by for IV Narcan. Patient states he only feels drowsy at this time. Patient denies any suicide attempt or ideation. Patient denies any trauma. Patient has no specific complaints otherwise. - Related Data Previous Rx's Medication Instructions Recorded Acetaminophen Tab [Tylenol] 650 mg PO Q4HR PRN tab 06/09/22 Gabapentin [Neurontin] 300 mg PO TID 30 Days #90 cap 06/09/22 Ibuprofen [Motrin] 400 mg PO Q6HR PRN tab 06/09/22 Nicotine 14Mg/24Hr Patch [Habitrol] 1 patch TRANSDERM DAILY 14 Days 06/09/22 #14 patch Tamsulosin [Flomax] 0.4 mg PO PC-SUPPER 30 Days #30 cap 06/09/22 Vortioxetine Hydrobromide 20 mg PO DAILY 30 Days #30 tab 06/09/22 [Trintellix] risperiDONE ER inj [Perseris] 120 mg SQ QMONTHLY #1 each 06/09/22 traZODone HCL [Desyrel] 50 mg PO HS PRN 30 Days #30 tab 06/09/22 Allergies Allergy/AdvReac Type Severity Reaction Status Date / Time No Known Allergies Allergy Verified 08/05/22 08:41 Review of Systems ROS Statement: Those systems with pertinent positive or pertinent negative responses have been documented in the HPI. ROS Other: All systems not noted in ROS Statement are negative. Constitutional: Denies: fever Eyes: Denies: eye pain ENT: Denies: ear pain Respiratory: Denies: cough Cardiovascular: Denies: chest pain Endocrine: Reports: fatigue Gastrointestinal: Denies: abdominal pain Genitourinary: Denies: urgency Musculoskeletal: Denies: back pain Skin: Denies: rash Neurological: Denies: headache, weakness, confusion Past Medical History Past Medical History: Deep Vein Thrombosis (DVT) Additional Past Medical History / Comment(s): Sepsis secondary to a left foot infection from stepping on a nail that developed into gangrene of the second, third and fourth toes status post [id number] amputation, R elbow fracture. History of Any Multi-Drug Resistant Organisms: MRSA Date of last positivie culture/infection: 03/20/15 MDRO Source:: Left fourth finger Past Surgical History: Hernia Repair Additional Past Surgical History / Comment(s): Inguinal hernia repair as child (does not recall laterallity). 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 He was a smoker. Mother Family Medical History: Cancer Additional Family Medical History / Comment(s): Mother had lung cancer. She of this at the age of 50yrs. She was a smoker. Brother(s) Family Medical History: No Reported History Additional Family Medical History / Comment(s): He has one brother that is 40 years of age with no major medical problems. Sister(s) Family Medical History: No Reported History Additional Family Medical History / Comment(s): He has one sister that is 39 years of age and does not have any major medical problems. Patient has 2 sons that are currently living with their mother. General Exam Limitations: no limitations General appearance: alert, in no apparent distress Head exam: Present: atraumatic, normocephalic Eye exam: Present: normal appearance, PERRL, EOMI ENT exam: Present: normal oropharynx Neck exam: Present: normal inspection. Absent: tenderness Respiratory exam: Present: normal lung sounds bilaterally Cardiovascular Exam: Present: regular rate, normal rhythm GI/Abdominal exam: Present: soft. Absent: tenderness Extremities exam: Present: normal inspection, other (Left leg amputation) Neurological exam: Present: alert, CN II-XII intact. Absent: motor sensory deficit Expanded Motor strength exam: RUE: 5, LUE: 5, RLE: 5, LLE: 5 Psychiatric exam: Present: normal affect, normal mood Skin exam: Present: normal color Course Vital Signs 08/05/22 08:36 Temperature 98.2 F Pulse Rate 81 Respiratory 16 Rate Blood Pressure 111/78 O2 Sat by Pulse 100 Oximetry Medical Decision Making - Medical Decision Making Was pt. sent in by a medical professional or institution (KELSEY Rae, ROTARY DUMP OPERATOR, urgent ca re, hospital, or penitentiary...) When possible be specific @ -No Did you speak to anyone other than the patient for history (EMS, parent, family, police, friend...)? What history was obtained from this source @ -No Did you review nursing and triage notes (agree or disagree)? Why? @ -I reviewed and agree with nursing and triage notes Were old charts reviewed (outside hosp., previous admission, EMS record, old EKG, old radiological studies, urgent care reports/EKG's, penitentiary records)? Report findings @ -No old charts were reviewed Differential Diagnosis (chest pain, altered mental status, abdominal pain women, abdominal pain men, vaginal bleeding, weakness, fever, dyspnea, syncope, headache, dizziness, GI bleed, back pain, seizure, CVA, palpatations, mental health)? @ - EKG interpreted by me (3pts min.). @ -As above X-rays interpreted by me (1pt min.). @ -None done CT interpreted by me (1pt min.). @ -None done U/S interpreted by me (1pt. min.). @ -None done What testing was considered but not performed or refused? (CT, X-rays, U/S, l abs)? Why? @ -None What meds were considered but not given or refused? Why? @ -None Did you discuss the management of the patient with other professionals (professionals i.e. KELSEY Rae, ROTARY DUMP OPERATOR, lab, RT, psych nurse, clinical social work aide, email producer, teacher, geographic area intelligence officer, director case)? Give summary @ -No Was smoking cessation discussed for >3mins.? @ -No Was critical care preformed (if so, how long)? @ -No Were there social determinants of health that impacted care today? How? (Homelessness, low income, unemployed, alcoholism, drug addiction, transportation, low edu. Level, literacy, decrease access to med. care, retirement, rehab)? @ -No Was there de-escalation of care discussed even if they declined (Discuss DNR or withdrawal of care, Hospice)? DNR status @ -No What co-morbidities impacted this encounter? (DM, HTN, Smoking, COPD, CAD, Cancer, CVA, ARF, Chemo, Hep., AIDS, mental health diagnosis, sleep apnea, morbid obesity)? @ -None Was patient admitted / discharged? Hospital course, mention meds given and route, prescriptions, significant lab abnormalities, going to OR and other pertinent info. @ -Patient reevaluated twice. Patient remains alert and appropriate. Patient still denies suicidal ideation. Patient was observed for prolonged time secondary to large dose of Narcan given. Patient is comfortable with discharge home. Undiagnosed new problem with uncertain prognosis? @ -No Drug Therapy requiring intensive monitoring for toxicity (Heparin, Nitro, Insulin, Cardizem)? @ -No Were any procedures done? @ -No Diagnosis/symptom? @ -Heroin overdose Acute, or Chronic, or Acute on Chronic? @ -Acute Uncomplicated (without systemic symptoms) or Complicated (systemic symptoms)? @ -default Side effects of treatment? @ -No Exacerbation, Progression, or Severe Exacerbation? @ -No Poses a threat to life or bodily function? How? (Chest pain, [place], [place], pneumonia, PE, COPD, DKA, ARF, appy, cholecystitis, CVA, Diverticulitis, Homicidal, Suicidal, threat to staff... and all critical care pts) @ -No Disposition Clinical Impression: Opiate overdose Disposition: HOME SELF-CARE Condition: Stable Instructions (If sedation given, give patient instructions): Adult Overdose (ED) Additional Instructions: Please follow-up with rehab. Please discontinue opiates and all other drugs. Return for thoughts of self-harm, worsening symptoms or other concerns. Is patient prescribed a controlled substance at d/c from ED?: No Referrals: [facility] [Primary Care Provider] - 1-2 days Forms: In Substance Abuse Facilities, Outpatient Counseling Time of Disposition: 10:13
[2022-08-05 08:41] VITALS: TEMP 98.2
[2022-08-05 10:26] VITALS: BP 107/70; PULSE 70; RESP 18
== END 2022-08-05 10:27 | disposition home or self-care (01) ==
LOC: EC 08:26
DX: T40.1X1A Poisoning by heroin, accidental (unintentional), initial encounter (principal); Z86.718 Personal history of other venous thrombosis and embolism; Z86.59 Personal history of other mental and behavioral disorders; F17.200 Nicotine dependence, unspecified, uncomplicated; F12.90 Cannabis use, unspecified, uncomplicated
CPT/HCPCS: 99284

== ENCOUNTER 2022-11-24 21:04 | Emergency (ER) | payer OTHER ==
[2022-11-24 21:26] VITALS: TEMP 98.8
[2022-11-24 23:02] VITALS: BP 119/82; PULSE 98; RESP 18
--- NOTE | 2022-11-24 23:25 | ED ---
Overdose HPI - General Chief Complaint: Overdose Stated Complaint: Overdose Time Seen by Provider: 11/24/22 21:08 Source: patient, EMS, RN notes reviewed Mode of arrival: EMS Limitations: no limitations - History of Present Illness Initial Comments: 42-year-old male presents emergency Department with chief complaint of heroin overdose. Patient states he injected heroin states that he initially felt very high and reportedly required Narcan 2. Patient has no complaints upon arrival. Patient denies any intentional self-harm. Patient does have a long history of drug abuse. - Related Data Previous Rx's Medication Instructions Recorded Acetaminophen Tab [Tylenol] 650 mg PO Q4HR PRN tab 06/09/22 Gabapentin [Neurontin] 300 mg PO TID 30 Days #90 cap 06/09/22 Ibuprofen [Motrin] 400 mg PO Q6HR PRN tab 06/09/22 Nicotine 14Mg/24Hr Patch [Habitrol] 1 patch TRANSDERM DAILY 14 Days 06/09/22 #14 patch Tamsulosin [Flomax] 0.4 mg PO PC-SUPPER 30 Days #30 cap 06/09/22 Vortioxetine Hydrobromide 20 mg PO DAILY 30 Days #30 tab 06/09/22 [Trintellix] risperiDONE ER inj [Perseris] 120 mg SQ QMONTHLY #1 each 06/09/22 traZODone HCL [Desyrel] 50 mg PO HS PRN 30 Days #30 tab 06/09/22 Allergies Allergy/AdvReac Type Severity Reaction Status Date / Time No Known Allergies Allergy Verified 08/05/22 08:41 Review of Systems ROS Statement: Those systems with pertinent positive or pertinent negative responses have been documented in the HPI. ROS Other: All systems not noted in ROS Statement are negative. Past Medical History Past Medical History: Deep Vein Thrombosis (DVT) Additional Past Medical History / Comment(s): Sepsis secondary to a left foot infection from stepping on a nail that developed into gangrene of the second, third and fourth toes status post [id number] amputation, R elbow fracture. History of Any Multi-Drug Resistant Organisms: MRSA Date of last positivie culture/infection: 03/20/15 MDRO Source:: Left fourth finger Past Surgical History: Hernia Repair Additional Past Surgical History / Comment(s): Inguinal hernia repair as child (does not recall laterallity). 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 He was a smoker. Mother Family Medical History: Cancer Additional Family Medical History / Comment(s): Mother had lung cancer. She of this at the age of 50yrs. She was a smoker. Brother(s) Family Medical History: No Reported History Additional Family Medical History / Comment(s): He has one brother that is 40 years of age with no major medical problems. Sister(s) Family Medical History: No Reported History Additional Family Medical History / Comment(s): He has one sister that is 39 years of age and does not have any major medical problems. Patient has 2 sons that are currently living with their mother. General Exam Limitations: no limitations General appearance: alert, in no apparent distress Head exam: Present: atraumatic, normocephalic, normal inspection Eye exam: Present: normal appearance, PERRL, EOMI. Absent: scleral icterus, conjunctival injection, periorbital swelling ENT exam: Present: normal exam, mucous membranes moist Neck exam: Present: normal inspection, full ROM. Absent: tenderness, meningismus, lymphadenopathy Respiratory exam: Present: normal lung sounds bilaterally. Absent: respiratory distress, wheezes, rales, rhonchi, stridor Cardiovascular Exam: Present: regular rate, normal rhythm, normal heart sounds. Absent: systolic murmur, diastolic murmur, rubs, gallop, clicks GI/Abdominal exam: Present: soft, normal bowel sounds. Absent: distended, tende rness, guarding, rebound, rigid Course Vital Signs 11/24/22 11/24/22 21:09 22:50 Temperature 98.8 F Pulse Rate 107 H 98 Respiratory 19 18 Rate Blood Pressure 124/91 119/82 O2 Sat by Pulse 99 Oximetry Medical Decision Making - Medical Decision Making Was pt. sent in by a medical professional or institution (, PA, [employer], urgent care, hospital, or long term...) When possible be specific @ -No Did you speak to anyone other than the patient for history (EMS, parent, family, police, friend...)? What history was obtained from this source @ -No Did you review nursing and triage notes (agree or disagree)? Why? @ -I reviewed and agree with nursing and triage notes Were old charts reviewed (outside hosp., previous admission, EMS record, old EKG, old radiological studies, urgent care reports/EKG's, long term records)? Report findings @ -No old charts were reviewed Differential Diagnosis (chest pain, altered mental status, abdominal pain women, abdominal pain men, vaginal bleeding, weakness, fever, dyspnea, syncope, headache, dizziness, GI bleed, back pain, seizure, CVA, palpatations, mental health, musculoskeletal)? @ -Drug overdose, opiate abuse EKG interpreted by me (3pts min.). @ -None X-rays interpreted by me (1pt min.). @ -None done CT interpreted by me (1pt min.). @ -None done U/S interpreted by me (1pt. min.). @ -None done What testing was considered but not performed or refused? (CT, X-rays, U/S, labs)? Why? @ -None What meds were considered but not given or refused? Why? @ -None Did you discuss the management of the patient with other professionals (professionals i.e. , PA, [employer], lab, RT, psych nurse, social work nurse, power transformer repair supervisor, teacher, bsa officer, top case assembler)? Give summary @ -No Was smoking cessation discussed for >3mins.? @ -No Was critical care preformed (if so, how long)? @ -No Were there social determinants of health that impacted care today? How? (Homelessness, low income, unemployed, alcoholism, drug addiction, transportation, low edu. Level, literacy, decrease access to med. care, custodial, rehab)? @ -No Was there de-escalation of care discussed even if they declined (Discuss DNR or withdrawal of care, Hospice)? DNR status @ -No What co-morbidities impacted this encounter? (DM, HTN, Smoking, COPD, CAD, Cancer, CVA, ARF, Chemo, Hep., AIDS, mental health diagnosis, sleep apnea, morbid obesity)? @ -Drug abuse Was patient admitted / discharged? Hospital course, mention meds given and route, prescriptions, significant lab abnormalities, going to OR and other pertinent info. @ -Discharge patient was observed for 2+ hours patient had no change in mentation. Patient is discharged stable condition return parameters were discussed. Undiagnosed new problem with uncertain prognosis? @ -No Drug Therapy requiring intensive monitoring for toxicity (Heparin, Nitro, Insulin, Cardizem)? @ -No Were any procedures done? @ -No Diagnosis/symptom? @ -Opiate overdose Acute, or Chronic, or Acute on Chronic? @ -Acute Uncomplicated (without systemic symptoms) or Complicated (systemic symptoms)? @ -complicated Side effects of treatment? @ -No Exacerbation, Progression, or Severe Exacerbation? @ -No Poses a threat to life or bodily function? How? (Chest pain, [place], [place], pneumonia, PE, COPD, DKA, ARF, appy, cholecystitis, CVA, Diverticulitis, Homicidal, Suicidal, threat to staff... and all critical care pts) @ -No Disposition Clinical Impression: Accidental drug overdose Disposition: HOME SELF-CARE Condition: Stable Instructions (If sedation given, give patient instructions): Adult Overdose (ED) Additional Instructions: Please return to the Emergency Department if symptoms worsen or any other concerns. Is patient prescribed a controlled substance at d/c from ED?: No Referrals: [facility] [Primary Care Provider] - 1-2 days Time of Disposition: 23:25
== END 2022-11-25 00:43 | disposition home or self-care (01) ==
LOC: EC 21:04
DX: T40.601A Poisoning by unspecified narcotics, accidental (unintentional), initial encounter (principal); F17.200 Nicotine dependence, unspecified, uncomplicated; F14.90 Cocaine use, unspecified, uncomplicated; F12.90 Cannabis use, unspecified, uncomplicated; F11.90 Opioid use, unspecified, uncomplicated; F15.90 Other stimulant use, unspecified, uncomplicated; Z86.59 Personal history of other mental and behavioral disorders
CPT/HCPCS: 99284

== ENCOUNTER 2023-12-09 20:56 | Emergency (ER) | payer OTHER ==
[2023-12-09 21:16] VITALS: TEMP 97.7
--- NOTE | 2023-12-09 22:00 | XR ---
EXAMINATION TYPE: XR lumbar spine 2 or 3V DATE OF EXAM: 12/09/2023 CLINICAL HISTORY: pain TECHNIQUE: Three views of the lumbar spine are submitted. COMPARISON: None. FINDINGS: There are 5 lumbar type vertebral bodies identified. The lumbar spine shows satisfactory alignment w ithout evidence of acute fracture or dislocation. Vertebral body heights are within normal limits. Disc spaces are within normal limits. Grade 1 anterolisthesis L4 on L5 of 3 mm. Mild facet joint art hropathy. The overlying soft tissue appears unremarkable. IMPRESSION: Grade 1 anterolisthesis L4 on L5 of 3 mm. Mild facet joint arthropathy. ICD 10 NO FRACTURE, INITIAL EVALUATION [facility], , 12/09/2023 9:58 PM
[2023-12-09] MEDS: HYDROmorphone 0.5 MG/0.5 ML SYRINGE IM STA (22:50)
[2023-12-09] MEDS: KETOROLAC 15 MG/ML 1 ML VIAL IM STA (22:50)
[2023-12-09] MEDS: LIDOCAINE 4% PATCH TOPICAL ONE (22:51)
--- NOTE | 2023-12-10 00:29 | ED ---
Back Pain HPI - General Chief Complaint: Back Pain/Injury Stated Complaint: Back pain Time Seen by Provider: 12/09/23 21:23 Source: patient Limitations: no limitations - History of Present Illness Initial Comments: 43-year-old male presenting with chief complaint of back pain. Patient is complaining of lower back pain, equal on both sides. Patient has history of chronic back pain. He denies any injury or trauma. No radiation down the legs. No loss of bowel or bladder control or saddle paresthesia. No fevers. Patient states that he is having some diffuse abdominal discomfort. No nausea or vomiting. No chest pain or difficulty breathing. No diarrhea or hematochezia. - Related Data Previous Rx's Medication Instructions Recorded Acetaminophen Tab [Tylenol] 650 mg PO Q4HR PRN tab 06/09/22 Gabapentin [Neurontin] 300 mg PO TID 30 Days #90 cap 06/09/22 Ibuprofen [Motrin] 400 mg PO Q6HR PRN tab 06/09/22 Nicotine 14Mg/24Hr Patch [Habitrol] 1 patch TRANSDERM DAILY 14 Days 06/09/22 #14 patch Tamsulosin [Flomax] 0.4 mg PO PC-SUPPER 30 Days #30 cap 06/09/22 Vortioxetine Hydrobromide 20 mg PO DAILY 30 Days #30 tab 06/09/22 [Trintellix] risperiDONE ER inj [Perseris] 120 mg SQ QMONTHLY #1 each 06/09/22 traZODone HCL [Desyrel] 50 mg PO HS PRN 30 Days #30 tab 06/09/22 Allergies Allergy/AdvReac Type Severity Reaction Status Date / Time No Known Allergies Allergy Verified 08/05/22 08:41 Review of Systems ROS Statement: Those systems with pertinent positive or pertinent negative responses have been documented in the HPI. ROS Other: All systems not noted in ROS Statement are negative. Past Medical History Past Medical History: Deep Vein Thrombosis (DVT) Additional Past Medical History / Comment(s): Sepsis secondary to a left foot infection from stepping on a nail that developed into gangrene of the second, third and fourth toes status post [id number] amputation, R elbow fracture. History of Any Multi-Drug Resistant Organisms: MRSA Date of last positivie culture/infection: 03/20/15 MDRO Source:: Left fourth finger Past Surgical History: Hernia Repair Additional Past Surgical History / Comment(s): Inguinal hernia repair as child (does not recall laterallity). 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 He was a smoker. Mother Family Medical History: Cancer Additional Family Medical History / Comment(s): Mother had lung cancer. She of this at the age of 50yrs. She was a smoker. Brother(s) Family Medical History: No Reported History Additional Family Medical History / Comment(s): He has one brother that is 40 years of age with no major medical problems. Sister(s) Family Medical History: No Reported History Additional Family Medical History / Comment(s): He has one sister that is 39 years of age and does not have any major medical problems. Patient has 2 sons that are currently living with their mother. General Exam Limitations: no limitations General appearance: alert, in no apparent distress Head exam: Present: atraumatic, normocephalic, normal inspection Eye exam: Present: normal appearance, EOMI Neck exam: Present: normal inspection. Absent: meningismus Respiratory exam: Present: normal lung sounds bilaterally. Absent: respiratory distress, wheezes, rales, rhonchi, stridor Cardiovascular Exam: Present: regular rate, normal rhythm, normal heart sounds. Absent: systolic murmur, diastolic murmur, rubs, gallop, clicks GI/Abdominal exam: Present: soft. Absent: distended, tenderness, guarding, rebound, rigid Back exam: Present: normal inspection, tenderness Neurological exam: Present: alert, oriented X3 Psychiatric exam: Present: normal affect, normal mood Skin exam: Present: warm, dry Course Vital Signs 12/09/23 12/10/23 21:12 01:00 Temperature 97.7 F Pulse Rate 107 H 100 Respiratory 20 18 Rate Blood Pressure 131/82 130/80 O2 Sat by Pulse 98 96 Oximetry Medical Decision Making - Medical Decision Making Was pt. sent in by a medical professional or institution (KELSEY Rae, ASSISTANT SITE MANAGER, urgent care, hospital, or [facility]...) When possible be specific @ -No Did you speak to anyone other than the patient for history (EMS, parent, family, police, friend...)? What history was obtained from this source @ -No Did you review nursing and triage notes (agree or disagree)? Why? @ -I reviewed and agree with nursing and triage notes Were old charts reviewed (outside hosp., previous admission, EMS record, old EKG, old radiological studies, urgent care reports/EKG's, [facility] records)? Report findings @ -No old charts were reviewed Differential Diagnosis (chest pain, altered mental status, abdominal pain women, abdominal pain men, vaginal bleeding, weakness, fever, dyspnea, syncope, headache, dizziness, GI bleed, back pain, seizure, CVA, palpatations, mental health, musculoskeletal)? @ -MDM differential constipation EKG interpreted by me (3pts min.). @ -As above X-rays interpreted by me (1pt min.). @ -X-ray of the lumbar spine shows grade 1 anterolisthesis L4 on L5 with 3 mm. Mild facet joint arthropathy KUB x-ray shows evidence of constipation CT interpreted by me (1pt min.). @ -None done U/S interpreted by me (1pt. min.). @ -None done What testing was considered but not performed or refused? (CT, X-rays, U/S, labs)? Why? @ -None What meds were considered but not given or refused? Why? @ -None Did you discuss the management of the patient with other professionals (professionals i.e. KELSEY Rae, ASSISTANT SITE MANAGER, lab, RT, psych nurse, clinical social worker, commodity broker, teacher, air force senior officer, immigration case manager)? Give summary @ -No Was smoking cessation discussed for >3mins.? @ -No Was critical care preformed (if so, how long)? @ -No Were there social determinants of health that impacted care today? How? (Homelessness, low income, unemployed, alcoholism, drug addiction, transportation, low edu. Level, literacy, decrease access to med. care, skilled nursing, rehab)? @ -No Was there de-escalation of care discussed even if they declined (Discuss DNR or withdrawal of care, Hospice)? DNR status @ -No What co-morbidities impacted this encounter? (DM, HTN, Smoking, COPD, CAD, Cancer, CVA, ARF, Chemo, Hep., AIDS, mental health diagnosis, sleep apnea, morbid obesity)? @ -None Was patient admitted / discharged? Hospital course, mention meds given and route, prescriptions, significant lab abnormalities, going to OR and other pertinent info. @ -43-year-old male presenting with chief complaint of lower back pain. No red flag symptoms. He is also having some diffuse abdominal discomfort. X-rays obtained which shows anterior listhesis. Also shows constipation. Patient is given pain medication on reassessment reports improvement in his symptoms. He is provided with magnesium citrate for home to alleviate his constipation and educated on the use. Discharged. Follow-up with PCP. Report back to ER with any new or worsening symptoms. Discussed return parameters and answered all questions. Patient conveyed verbal understanding and agreed to the plan. I discussed this case in detail with my attending . Undiagnosed new problem with uncertain prognosis? @ -No Drug Therapy requiring intensive monitoring for toxicity (Heparin, Nitro, Insulin, Cardizem)? @ -No Were any procedures done? @ -No Diagnosis/symptom? @ -Mechanical back pain, constipation Acute, or Chronic, or Acute on Chronic? @ -Acute Uncomplicated (without systemic symptoms) or Complicated (systemic symptoms)? @ -Uncomplicated Side effects of treatment? @ -No Exacerbation, Progression, or Severe Exacerbation? @ -No Poses a threat to life or bodily function? How? (Chest pain, USA, PR, pneumonia, PE, COPD, DKA, ARF, appy, cholecystitis, CVA, Diverticulitis, Homicidal, Suicidal, threat to staff... and all critical care pts) @ -Unlikely Disposition Clinical Impression: Mechanical back pain, Constipation Disposition: HOME SELF-CARE Condition: Good Instructions (If sedation given, give patient instructions): Magnesium Citrate (By mouth), Constipation (ED), Acute Low Back Pain (ED) Additional Instructions: Follow-up with PCP. Report back to ER with any new or worsening symptoms. Take magnesium citrate while at home, expect to be home for several hours following as your constipation resolves. Is patient prescribed a controlled substance at d/c from ED?: No Referrals: Aniket De La Cruz MD [Primary Care Provider] - 1-2 days Time of Disposition: 00:29
[2023-12-10] MEDS ORDERED: MAGNESIUM CITRATE 296 ML BOTTLE PO ONE (00:45)
[2023-12-10 01:01] VITALS: BP 130/80; PULSE 100; RESP 18
--- NOTE | 2023-12-13 16:03 | XR ---
EXAMINATION TYPE: XR KUB DATE OF EXAM: 12/09/2023 COMPARISON: NONE HISTORY: Pain TECHNIQUE: Single supine KUB image of the abdomen is obtained FINDINGS: Small bowel demonstrates no evidence for dilatation or air fluid levels. Gas and fecal material is seen in non-distended colon. No convincing evidence for pneumoperitoneum. No unusual calcifications. Moderate fecal stasis noted. The lung bases are clear. The osseous structures are intact. IMPRESSION: Moderate to large amount of stool throughout the colon. Overall nonobstructive bowel gas pattern. [facility], Workstation: [id number], 12/13/2023 3:59 PM [facility], Workstation: [id number], 12/13/2023 4:00 PM
== END 2023-12-10 01:21 | disposition home or self-care (01) ==
LOC: EC 20:56
CPT/HCPCS: 72100; 74018; 96372; 99283

== ENCOUNTER 2024-01-17 15:14 | Emergency (ER) | payer OTHER ==
--- NOTE | 2024-01-17 15:38 | ED ---
Back Pain HPI - General Chief Complaint: Back Pain/Injury Stated Complaint: low back pain Time Seen by Provider: 01/17/24 15:15 Source: patient, RN notes reviewed Mode of arrival: EMS Limitations: no limitations - History of Present Illness Initial Comments: This is a 39-year-old male who presents to the emergency department for back pain. Patient states he has been dealing with back pain for the last several weeks. He was evaluated here for this about a month ago and discharged home. States that pain has not gotten any better and over the last few days in particular has gotten much worse to the point where he is unable to ambulate. Pain is in the back, the right lower quadrant of his abdomen, groin, and going down the leg. Unsure if it is the same issue he has been dealing with or something new entirely. He is taking ibuprofen and gabapentin without any relief in symptoms. Denies any loss of bowel/bladder control or saddle anesthesia. MD Complaint: back pain - Related Data Previous Rx's Medication Instructions Recorded Acetaminophen Tab [Tylenol] 650 mg PO Q4HR PRN tab 06/09/22 Gabapentin [Neurontin] 300 mg PO TID 30 Days #90 cap 06/09/22 Ibuprofen [Motrin] 400 mg PO Q6HR PRN tab 06/09/22 Nicotine 14Mg/24Hr Patch [Habitrol] 1 patch TRANSDERM DAILY 14 Days 06/09/22 #14 patch Tamsulosin [Flomax] 0.4 mg PO PC-SUPPER 30 Days #30 cap 06/09/22 Vortioxetine Hydrobromide 20 mg PO DAILY 30 Days #30 tab 06/09/22 [Trintellix] risperiDONE ER inj [Perseris] 120 mg SQ QMONTHLY #1 each 06/09/22 traZODone HCL [Desyrel] 50 mg PO HS PRN 30 Days #30 tab 06/09/22 Allergies Allergy/AdvReac Type Severity Reaction Status Date / Time No Known Allergies Allergy Verified 01/17/24 15:20 Review of Systems ROS Statement: Those systems with pertinent positive or pertinent negative responses have been documented in the HPI. ROS Other: All systems not noted in ROS Statement are negative. Past Medical History Past Medical History: Deep Vein Thrombosis (DVT) Additional Past Medical History / Comment(s): Sepsis secondary to a left foot infection from stepping on a nail that developed into gangrene of the second, third and fourth toes status post [id number] amputation, R elbow fracture. History of Any Multi-Drug Resistant Organisms: MRSA Date of last positivie culture/infection: 03/20/15 MDRO Source:: Left fourth finger Past Surgical History: Hernia Repair Additional Past Surgical History / Comment(s): Inguinal hernia repair as child (does not recall laterallity). 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 He was a smoker. Mother Family Medical History: Cancer Additional Family Medical History / Comment(s): Mother had lung cancer. She of this at the age of 50yrs. She was a smoker. Brother(s) Family Medical History: No Reported History Additional Family Medical History / Comment(s): He has one brother that is 40 years of age with no major medical problems. Sister(s) Family Medical History: No Reported History Additional Family Medical History / Comment(s): He has one sister that is 39 years of age and does not have any major medical problems. Patient has 2 sons that are currently living with their mother. General Exam Limitations: no limitations General appearance: alert, in distress Head exam: Present: atraumatic, normocephalic, normal inspection Respiratory exam: Present: normal lung sounds bilaterally. Absent: respiratory distress, wheezes, rales, rhonchi, stridor Cardiovascular Exam: Present: regular rate, normal rhythm, normal heart sounds. Absent: systolic murmur, diastolic murmur, rubs, gallop, clicks GI/Abdominal exam: Present: soft, tenderness (RLQ), normal bowel sounds. Absent: distended Back exam: Present: other (Right lower back) Neurological exam: Present: alert, oriented X3, CN II-XII intact Psychiatric exam: Present: normal affect, normal mood Skin exam: Present: warm, dry, intact, normal color. Absent: rash Course Vital Signs 01/17/24 01/17/24 01/17/24 15:19 19:08 21:09 Temperature 98.7 F 98.7 F 99.4 F Pulse Rate 101 H 76 94 Respiratory 16 18 16 Rate Blood Pressure 135/81 121/83 104/63 O2 Sat by Pulse 97 95 98 Oximetry Medical Decision Making - Medical Decision Making This is a 43 year old male who presents to the emergency department for back pain. Was pt. sent in by a medical professional or institution? @ -No Did you speak to anyone other than the patient for history? @ -No Did you review nursing and triage notes? @ -Yes, and I agree, it is accurate with regards to the patient's symptoms. Were old charts reviewed? @ -No Differential Diagnosis? @ -Differential Back Pain: Strain, zoster, cauda equina syndrome, epidural abscess, vertebral osteomyelitis, discitis, fracture, subluxation, disc herniation, DJD, spinal stenosis, dissection, AAA, pancreatitis, peptic ulcer disease, pyelonephritis, kidney stone, this is not meant to be an all-inclusive list. EKG interpreted by me (3pts min.)? @ -EKG interpreted by me demonstrating the following: Sinus rhythm. Ventricular rate 86 bpm, FL interval 160 ms, QRS duration 92 ms, QTc 402 ms. X-rays interpreted by me (1pt min.)? @ -Not obtained CT interpreted by me (1pt min.)? @ -CT scan of the abdomen and pelvis obtained. My interpretation identifies no evidence of bowel wall thickening or free air. U/S interpreted by me (1pt. min.)? @ -Not obtained What testing was considered but not performed? (CT, X-rays, U/S, labs)? Why? @ -None What meds were considered but not given? Why? @ -None Did you discuss the management of the patient with other professionals? @ -Yes, Dr. Acosta, orthopedics, who advised that ortho spine is not conductor symphonic orchestra and if we cannot reach him, transfer would be advised. Ortho spine could not be reached. Dr. Bashir at [facility] accepts the patient for ED to ED transfer. Did you reconcile home meds? @ -No Was smoking cessation discussed for >3mins.? @ -I discussed smoking cessation for greater than 3 minutes. The risk of smoking were discussed with the patient including but not limited to risks of cancer, stroke, coronary artery disease and COPD. Also discussed with patient were multiple methods of quitting smoking. Lastly we discussed the financial cost of smoking. Was critical care preformed (if so, how long)? @ -No Were there social determinants of health that impacted care today? How? (Homelessness, low income, unemployed, alcoholism, drug addiction, transportation, low edu. Level, literacy, decrease access to med. care, fpc, rehab)? @ -IVDU, potentially leading to the osteomyelitis discitis with epidural abscess formation. Was there de-escalation of care discussed even if they declined? (Discuss DNR or withdrawal of care, Hospice)? @ -No What co-morbidities impacted this encounter? (DM, HTN, Smoking, COPD, CAD, Cancer, CVA, Hep., AIDS, mental health diagnosis, sleep apnea, morbid obesity)? @ -Smoking, Hx of IVDU Was patient admitted / discharged? @ -Transferred. Lab work demonstrates leukocytosis with a white blood cell count of 19.4. CRP mildly elevated at 1.1. Urinalysis consistent with infection based on positive nitrites and moderate bacteria. Urine and blood cultures obtained. We did obtain a CT scan of the abdomen and pelvis to evaluate for intra-abdominal and spinal pathologies. No acute process was identified. Given the leukocytosis, patient's intractable pain and difficulty with ambulation, stat MRI of the lumbar spine was obtained to look for other potential pathologies. MRI revealed osteomyelitis discitis at L5-S1 disc space with epidural abscess formation measuring up to 13 x 10 x 6 mm. There is also an additional abscess formation anterior to the L5 vertebral body. He had already been given 2 g of Rocephin at that point. However, patient is an IV drug user. Given potential for Pseudomonas, he was given 2 g of Fortaz as well as vancomycin and Flagyl. I did speak with Dr. Acosta, orthopedics, who advised th at orthopedic spine is not available this week and advised transfer. Patient subsequently transferred to [facility] via EMS as an ED to ED transfer for osteomyelitis discitis with epidural abscess formation. Dr. Bashir is the accepting ED provider. Case discussed with ED attending, Dr. Espino. Undiagnosed new problem with uncertain prognosis? @ -None Drug Therapy requiring intensive monitoring for toxicity (Heparin, Nitro, Insulin, Cardizem)? @ -None Were any procedures done? @ -None Diagnosis/symptom? @ -Osteomyelitis discitis, epidural abscess Acute, or Chronic, or Acute on Chronic? @ -Acute Uncomplicated (without systemic symptoms) or Complicated (systemic symptoms)? @ -Complicated Side effects of treatment? @ -None Exacerbation, Progression, or Severe Exacerbation] @ -Not applicable Poses a threat to life or bodily function? @ -Yes, can lead to septic shock and - Lab Data Result diagrams: 01/17/24 15:52 01/17/24 15:52 Lab Results 01/17/24 01/17/24 01/17/24 Range/Units 15:52 15:52 15:52 WBC 19.4 H (3.8-10.6) k/uL RBC 4.45 (4.30-5.90) m/uL Hgb 12.6 L (13.0-17.5) gm/dL Hct 39.6 (39.0-53.0) % MCV 89.0 (80.0-100.0) fL MCH 28.3 (25.0-35.0) pg MCHC 31.7 (31.0-37.0) g/dL RDW 13.7 (11.5-15.5) % Plt Count 492 H (150-450) k/uL MPV 6.8 Neutrophils % 92 % Lymphocytes % 5 % Monocytes % 1 % Eosinophils % 1 % Basophils % 0 % Neutrophils # 17.9 H (1.3-7.7) k/uL Lymphocytes # 1.1 (1.0-4.8) k/uL Monocytes # 0.1 (0-1.0) k/uL Eosinophils # 0.2 (0-0.7) k/uL Basophils # 0.1 (0-0.2) k/uL Hypochromasia Slight Sodium 138 (137-145) mmol/L Potassium 4.2 (3.5-5.1) mmol/L Chloride 108 H (98-107) mmol/L Carbon Dioxide 24 (22-30) mmol/L Anion Gap 6 mmol/L BUN 15 (9-20) mg/dL Creatinine 0.81 (0.66-1.25) mg/dL Est GFR (CKD-EPI)AfAm >90 (>60 ml/min/1.73 sqM) Est GFR (CKD-EPI)NonAf >90 (>60 ml/min/1.73 sqM) Glucose 80 (74-99) mg/dL Plasma Lactic Acid Bradford (0.7-2.0) mmol/L Calcium 9.1 (8.4-10.2) mg/dL Magnesium 1.8 (1.6-2.3) mg/dL Total Bilirubin 0.3 (0.2-1.3) mg/dL AST 69 H (17-59) U/L ALT 75 H (4-49) U/L Alkaline Phosphatase 116 (38-126) U/L C-Reactive Protein (<1.0) mg/dL Total Protein 6.6 (6.3-8.2) g/dL Albumin 3.6 (3.5-5.0) g/dL Urine Color Colorless Urine Appearance Clear (Clear) Urine pH 5.0 (5.0-8.0) Ur Specific [place] 1.007 (1.001-1.035) Urine Protein Negative (Negative) Urine Glucose (UA) Negative (Negative) Urine Ketones Negative (Negative) Urine Blood Negative (Negative) Urine Nitrite Positive (Negative) Urine Bilirubin Negative (Negative) Urine Urobilinogen <2.0 (<2.0) mg/dL Ur Leukocyte Esterase Trace H (Negative) Urine RBC <1 (0-5) /hpf Urine WBC 4 (0-5) /hpf Urine Bacteria Moderate H (None) /hpf Urine Mucus Rare H (None) /hpf 01/17/24 01/17/24 Range/Units 15:52 18:58 WBC (3.8-10.6) k/uL RBC (4.30-5.90) m/uL Hgb (13.0-17.5) gm/dL Hct (39.0-53.0) % MCV (80.0-100.0) fL MCH (25.0-35.0) pg MCHC (31.0-37.0) g/dL RDW (11.5-15.5) % Plt Count (150-450) k/uL MPV Neutrophils % % Lymphocytes % % Monocytes % % Eosinophils % % Basophils % % Neutrophils # (1.3-7.7) k/uL Lymphocytes # (1.0-4.8) k/uL Monocytes # (0-1.0) k/uL Eosinophils # (0-0.7) k/uL Basophils # (0-0.2) k/uL Hypochromasia Sodium (137-145) mmol/L Potassium (3.5-5.1) mmol/L Chloride (98-107) mmol/L Carbon Dioxide (22-30) mmol/L Anion Gap mmol/L BUN (9-20) mg/dL Creatinine (0.66-1.25) mg/dL Est GFR (CKD-EPI)AfAm (>60 ml/min/1.73 sqM) Est GFR (CKD-EPI)NonAf (>60 ml/min/1.73 sqM) Glucose (74-99) mg/dL Plasma Lactic Acid Bradford 2.0 (0.7-2.0) mmol/L Calcium (8.4-10.2) mg/dL Magnesium (1.6-2.3) mg/dL Total Bilirubin (0.2-1.3) mg/dL AST (17-59) U/L ALT (4-49) U/L Alkaline Phosphatase (38-126) U/L C-Reactive Protein 1.1 H (<1.0) mg/dL Total Protein (6.3-8.2) g/dL Albumin (3.5-5.0) g/dL Urine Color Urine Appearance (Clear) Urine pH (5.0-8.0) Ur Specific [place] (1.001-1.035) Urine Protein (Negative) Urine Glucose (UA) (Negative) Urine Ketones (Negative) Urine Blood (Negative) Urine Nitrite (Negative) Urine Bilirubin (Negative) Urine Urobilinogen (<2.0) mg/dL Ur Leukocyte Esterase (Negative) Urine RBC (0-5) /hpf Urine WBC (0-5) /hpf Urine Bacteria (None) /hpf Urine Mucus (None) /hpf - Radiology Data Radiology results: report reviewed, image reviewed Disposition Clinical Impression: Osteomyelitis of lumbar spine, Epidural abscess, Nicotine dependence Disposition: OTHER INSTITUTION NOT DEFINED Referrals: Aniket De La Cruz MD [Primary Care Provider] - 1-2 days - Out of Hospital Transfer - Req. Specs Out of Hospital Transfer - Requested Specifics: Other Emergency Center ([facility]
[2024-01-17] MEDS: HYDROmorphone 1 MG/ML 1 ML SYRINGE IVP STA ×4 (15:51→20:57)
[2024-01-17] MEDS: DEXAMETHASONE SOD PHOSPHATE 10 MG/ML 1 ML VIAL IVP STA (15:52)
[2024-01-17] MEDS: ORPHENADRINE 30 MG/ML 2 ML VIAL IVP STA (15:52)
[2024-01-17] MEDS: KETOROLAC 15 MG/ML 1 ML VIAL IVP STA (15:52)
[2024-01-17 16:35] LABS: Basophils # (A) 0.1 k/uL (0-0.2); Basophils % (A) 0 %; Eosinophils # (A) 0.2 k/uL (0-0.7); Eosinophils % (A) 1 %; HCT 39.6 % (39.0-53.0); HGB 12.6 gm/dL (13.0-17.5); Hypochromasia Slight; Lymphocytes # (A) 1.1 k/uL (1.0-4.8); Lymphocytes % (A) 5 %; MCH 28.3 pg (25.0-35.0); MCHC 31.7 g/dL (31.0-37.0); Mean Platelet Volume 6.8; Monocytes # (A) 0.1 k/uL (0-1.0); Monocytes % (A) 1 %; Neutrophils # (A) 17.9 k/uL (1.3-7.7); Neutrophils % (A) 92 %; Platelet Count 492 k/uL (150-450); RBC 4.45 m/uL (4.30-5.90); RDW 13.7 % (11.5-15.5); WBC 19.4 k/uL (3.8-10.6)
--- NOTE | 2024-01-17 16:38 | CT ---
EXAMINATION TYPE: CT abdomen pelvis w con DATE OF EXAM: 01/17/2024 COMPARISON: 02/28/2018 CLINICAL INDICATION: Male, 43 years old with history of RLQ and right lower back pain; PHH, Abdominal pain TECHNIQUE: Performed without Oral Contrast and with IV Contrast, patient injected with 100 mL of Isovue 300. CT DLP: 640.[address] CTDI: mGy Automated exposure control for dose reduction was used. FINDINGS: The lung bases are clear. The gallbladder is normal without distention, wall thickening, pericholecystic fluid or gallstones. T here is no biliary ductal dilatation. There is no focal mass or organomegaly involving the liver, pancreas, spleen or adrenal glands. There is no solid renal mass or hydronephrosis and there is homogeneous contrast enhancement of the r enal parenchyma. The caliber the abdominal aorta is normal is no retroperitoneal adenopathy or hemorr duarte. The bowel loops are normal in caliber and there is no evidence of dilatation or obstruction. No infla mmatory changes are identified in the bowel wall or mesentery. There is no free intraperitoneal air or fluid. No pelvic mass, free fluid, abscess or adenopathy. The osseous structures and soft tissues are intact. IMPRESSION: No significant abnormality seen. [facility], , 01/17/2024 4:35 PM
[2024-01-17 16:48] LABS: Appearance,Urine Clear (Clear); Bacteria,Urine Moderate /hpf; Bilirubin,Urine Negative (Negative); Blood,Urine Negative (Negative); Color,Urine Colorless; Glucose,Urine (UA) Negative (Negative); Ketones,Urine Negative (Negative); Leukocyte Esterase,Urine Trace (Negative); Mucus,Urine Rare /hpf; Nitrite,Urine Positive (Negative); Protein,Urine Negative (Negative); RBC,Urine <1 /hpf (0-5); Specific Gravity,Urine 1.007 (1.001-1.035); Urobilinogen,Urine <2.0 mg/dL (<2.0); WBC,Urine 4 /hpf (0-5)
[2024-01-17 16:56] LABS: ALT 75 U/L (4-49); AST 69 U/L (17-59); African American GFR (CKD) >90 (>60 ml/min/1.73 sqM); Albumin 3.6 g/dL (3.5-5.0); Alkaline Phosphatase 116 U/L (38-126); Anion Gap 6 mmol/L; Blood Urea Nitrogen 15 mg/dL (9-20); Calcium 9.1 mg/dL (8.4-10.2); Carbon Dioxide 24 mmol/L (22-30); Chloride 108 mmol/L (98-107); Glucose 80 mg/dL (74-99); Magnesium 1.8 mg/dL (1.6-2.3); Non-African American GFR(CKD) >90 (>60 ml/min/1.73 sqM); Potassium 4.2 mmol/L (3.5-5.1); Sodium 138 mmol/L (137-145); Total Bilirubin 0.3 mg/dL (0.2-1.3); Total Protein 6.6 g/dL (6.3-8.2)
[2024-01-17] MEDS: LORazepam 2 MG/ML INJ IV STA (18:00)
--- NOTE | 2024-01-17 19:52 | MR ---
EXAMINATION TYPE: MR lumbar spine wo/w con DATE OF EXAM: 01/17/2024 6:46 PM COMPARISON: 01/17/2024. CLINICAL INDICATION: Male, 43 years old with history of Intractable back pain, inability to ambulate; PHH, Intractable back pain, inability to ambulate, Leukocytosis, tachycardia TECHNIQUE: Multi planar, multi sequence imaging was performed utilizing: T1-weighted, T2-weighted, a nd turbo inversion recovery imaging of the lumbar spine. IV Contrast: 7 mL Gadobutrol (None, if empty) FINDINGS: Alignment: The lumbar vertebral bodies have preserved heights grade 1 anterolisthesis of L4 and L4 on L5. Cord: The conus medullaris and the distal spinal cord appear unremarkable with regards to their signa l intensity and morphology. Bones/Discs: High T2 signal throughout the L4-L5 vertebral bodies extending to the posterior elements . Mild degeneration changes throughout the spine with osteophyte formation and facet joint arthropath y. Intervertebral disc signal is maintained. No abnormal inversion recovery signal to suggest bony ed lucio. T12-L1: No evidence of significant spinal canal stenosis or neural foraminal stenosis. L1-L2: No evidence of significant spinal canal stenosis or neural foraminal stenosis. L2-L3: No evidence of significant spinal canal stenosis or neural foraminal stenosis. L3-L4: No evidence of significant spinal canal stenosis or neural foraminal stenosis. L4-L5: Disc uncovering from grade 1 anterolisthesis and facet joint arthropathy with moderate spinal canal stenosis and moderate bilateral neural foraminal stenosis. L5-S1: Loss of disc space There is erosion of the adjoining endplates of L5-S1 with high T2 signal in the disc space and high inversion recovery signal present. There is epidural fluid collection measur ing 13 x 10 x 6 mm with mild to moderate spinal canal stenosis. Anterior to L5 is also a 7 x 5 byr 20 mm fluid collection. No significant spinal canal or neural foraminal stenosis in the remainder of the visualized levels. Other findings: None. IMPRESSION: 1. Osteomyelitis discitis at L5-S1 disc space with epidural abscess formation measuring up to 13 x 1 0 x 6 mm. This results in mild to moderate spinal canal stenosis. Neurosurgical consultation recommen ded. 2. Additional abscess formation anterior to the L5 vertebral body.a 3. Grade 1 anterolisthesis of L4 on L5 with moderate spinal canal stenosis. Findings communicated to KELSEY Guy via perfect serve on 01/17/2024 7:[address] Dutch Kemp. [facility], , 01/17/2024 7:50 PM
[2024-01-17] MEDS ORDERED: VANCOMYCIN IV PER PHARMACY 1 EACH MISC MISCELLANE PRN (19:55)
[2024-01-17] MEDS: metroNIDAZOLE-NS PMX 500 MG in SALINE 1 100ML.BAG IVPB STA (20:02)
[2024-01-17] MEDS: VANCOMYCIN 1,250 MG in SODIUM CHLORIDE 0.9% 250 ML IVPB STA (20:52)
[2024-01-17 21:11] VITALS: BP 104/63; PULSE 94; RESP 16; TEMP 99.4
[2024-01-18] MEDS ORDERED: VANCOMYCIN 1,250 MG in SODIUM CHLORIDE 0.9% 250 ML IVPB SCH (06:00)
== END 2024-01-17 21:09 | disposition other institution (70) ==
LOC: EC 15:14
DX: M46.26 Osteomyelitis of vertebra, lumbar region (principal); G06.1 Intraspinal abscess and granuloma; F17.290 Nicotine dependence, other tobacco product, uncomplicated
CPT/HCPCS: 36415; 93005; 80053; 85652; 83605; 83735; 85025; 86140; 81001; 87040; 87086; 74177; 72158; 99285; 96365; 96367; 96375 ×5; 96376 ×3; 99406; J2060; J1100; J2360; J0696; J1171; J1885; Q9967; A9585; J1836